=== PATIENT | male | born 1970 | race Caucasian/White ===

== ENCOUNTER 2016-06-08 22:59 | Emergency (ER) | payer MEDICAID, OTHER ==
[2016-06-08 23:10] VITALS: TEMP 98
[2016-06-09] MEDS ORDERED: KETOROLAC 30 MG/ML 1 ML VIAL IM STA (00:02)
--- NOTE | 2016-06-09 00:32 | ED ---
General Adult HPI <Gabe Reynoso - Last Filed: 06/09/16 03:56> - General Source: patient, family, EMS, RN notes reviewed, old records reviewed Mode of arrival: EMS Limitations: no limitations <Sukhjinder Powers - Last Filed: 06/10/16 11:13> - General Chief complaint: Fall Stated complaint: Fall - History of Present Illness Initial comments: Chief complaint history of present illness is a 45-year-old male who reports that he fell down 8 steps at home. Unwitnessed. No apparent loss of consciousness is others were there immediately. Patient was brought emergency room by EMS on a backboard with Merigold collar in place. (Sukhjinder Powers) - Related Data Previous Rx's Medication Instructions Recorded Nicotine 21Mg/24Hr Patch [Habitrol] 1 patch TRANSDERM DAILY #30 patch 11/24/15 Sertraline [Zoloft] 50 mg PO DAILY #30 tab 11/24/15 Ziprasidone [Geodon] 40 mg PO BID #60 cap 11/24/15 Hydrocodone/Acetaminophen [Duncan 1 each PO Q4HR PRN #15 tab 06/09/16 5-325] Allergies Allergy/AdvReac Type Severity Reaction Status Date / Time No Known Allergies Allergy Verified 06/08/16 23:10 Review of Systems ROS Other: All systems not noted in ROS Statement are negative. <Gabe Reynoso - Last Filed: 06/09/16 03:56> ROS Other: All systems not noted in ROS Statement are negative. <Sukhjinder Powers - Last Filed: 06/10/16 11:13> ROS Statement: Those systems with pertinent positive or pertinent negative responses have been documented in the HPI. Review of systems. The patient complains of headache or neck pain. Right shoulder pain, left knee pain. All systems are reviewed. Past medical problems significant for asthma, osteoarthritis, bipolar disorder. Surgeries hernia repair, back injections for chronic pain. Respiratory no known ALLERGIES. Patient encouraged not to smoke he does drink alcohol and drank alcohol this evening. (Sukhjinder Powers) Past Medical History Past Medical History: Asthma, Osteoarthritis (OA) Additional Past Medical History / Comment(s): Other HX: bronchitis, chronic back pain with pain injections and nerve "deadening", diverticulitis History of Any Multi-Drug Resistant Organisms: MRSA Date of last positivie culture/infection: 10/20/07 MDRO Source:: L leg Past Surgical History: No Surgical Hx Reported, Hernia Repair Additional Past Surgical History / Comment(s): Back pain injections and lumbar spine nerve ablation( nerve "deadening"), colonoscopy, L groin hernia repair as a child, L knee debridement of Mrsa infection around 2008. Past Anesthesia/Blood Transfusion Reactions: No Reported Reaction Additional Past Anesthesia/Blood Transfusion Reaction / Comment(s): Never has recieved blood. Past Psychological History: Anxiety, Bipolar, Depression Additional Psychological History / Comment(s): Pt's medical record from physicians office state episodic mood disorder. Pt lives at home with his . He is independent. He works and drives a car. Smoking Status: Current every day smoker Past Alcohol Use History: Daily Past Drug Use History: None Reported - Past Family History Father Family Medical History: COPD Additional Family Medical History / Comment(s): Father at age 49yrs of lung dx. Father was a smoker. Mother Family Medical History: Coronary Artery Disease (CAD), Diabetes Mellitus Additional Family Medical History / Comment(s): Mother at age 63 yrs. <Sukhjinder Powers - Last Filed: 06/10/16 11:13> General Exam <Gabe Reynoso - Last Filed: 06/09/16 03:56> Limitations: no limitations <Sukhjinder Powers - Last Filed: 06/10/16 11:13> - General Exam Comments Initial Comments: General: The patient is awake and alert, complaining of head neck, right shoulder left knee pain. Vital signs show temperature 98.0 pulse 75 respiratory rate 18 pulse ox 95% room air blood pressure 136/85. Mildly elevated systolic diastolic noted secondary to pain. Eye: Pupils are equal, round and reactive to light, extra-ocular movements are intact ; there is normal conjunctiva bilaterally. No signs of icterus. Ears, nose, mouth and throat: There are moist mucous membranes and no oral lesions. Patient states he did not chip his teeth. Neck: Patient's on a backboard with a Merigold collar was complaint neck pain. No complaint of numbness or tingling down his arms. Cardiovascular: There is a regular rate and rhythm. No murmur, rub or gallop is appreciated. Respiratory: Lungs are clear to auscultation, respirations are non-labored, breath sounds are equal. No wheezes, stridor, rales, or rhonchi. Gastrointestinal: Soft, non-distended, non-tender abdomen without masses or organomegaly noted. There is no rebound or guarding present. No CVA tenderness. Bowel sounds are unremarkable. Back: History of chronic back pain, has had injections in the past. Musculoskeletal: Complains pain to the right shoulder decreased range of motion. Neurovascular status to the hands intact. Complains of left knee pain he is able to flex mildly. Neurovascular status feet are intact. Neurological: CN II-XII intact, There are no obvious motor or sensory deficits. Coordination appears grossly intact. Speech is normal. No focal or lateralizing findings. Skin: Skin is warm and dry and no rashes or lesions are noted. Psychiatric: History of bipolar shoulder but no complaints of depression at this time. (Sukhjinder Powers) Medical Decision Making - Radiology Data Radiology results: report reviewed (Computed tomography scan of the brain shows no acute abnormality. Computed tomography scan of the cervical spine shows no acute process.), image reviewed (X-ray of the right shoulder, chest x-ray, knee , lumbar spine and pelvis show no acute process.) <Gabe Reynoso - Last Filed: 06/09/16 03:56> <Sukhjinder Powers - Last Filed: 06/10/16 11:13> - Medical Decision Making Patient reevaluated and resting comfortably in bed. Patient is symptom-free. Patient is clinically not intoxicated and does not feel he is intoxicated. Patient states he only had a couple of beers earlier and does not feel intoxicated when he arrived either. Patient and family updated on results and plan. (Gabe Reynoso) Patient is currently in CAT scan. Final disposition will be determined by Dr. Reynoso (Sukhjinder Powers) Disposition <Gabe Reynoso - Last Filed: 06/09/16 03:56> Time of Disposition: 11:13 <Sukhjinder Powers - Last Filed: 06/10/16 11:13> Clinical Impression: Fall, Multiple contusions Disposition: HOME SELF-CARE Condition: Stable Instructions: Head Injury (ED), Contusion in Adults (ED) Additional Instructions: Please follow-up with primary care physician in the next day or 2 for recheck. Return for change in mental status, weakness, difficulty breathing, worsening symptoms or other concerns. Prescriptions: Hydrocodone/Acetaminophen [Duncan 5-325] 1 each PO Q4HR PRN #15 tab PRN Reason: Pain Referrals: Asher Perkins III, MD [Primary Care Provider] - 1-2 days
--- NOTE | 2016-06-09 01:25 | CT ---
EXAM: CT Head Without Intravenous Contrast. CLINICAL HISTORY: Reason: Patient fell downstairs TECHNIQUE: Axial computed tomography images of the head/brain without intravenous contrast. CTDI is 57.40 mGy and DLP is 1184.90 mGy-cm COMPARISON: No relevant prior studies available. FINDINGS: Brain: Unremarkable. No acute hemorrhage. Normal thompson-white differentiation. No significant mass effect. Ventricles: Unremarkable. No ventriculomegaly. Bones/joints: Unremarkable. No acute fracture. Soft tissues: Unremarkable. Sinuses: Unremarkable as visualized. No acute sinusitis. Mastoid air cells: Unremarkable. IMPRESSION: No acute intracranial abnormality. EXAM: CT Cervical Spine Without Intravenous Contrast. CLINICAL HISTORY: Reason: Patient fell downstairs TECHNIQUE: Axial computed tomography images of the cervical spine without intravenous contrast. CTDI is 57.40 mGy and DLP is 1184.90 mGy-cm COMPARISON: No relevant prior studies available. FINDINGS: Vertebrae: Unremarkable. No acute fracture. Discs/spinal canal/neural foramina: No acute findings. No spinal canal stenosis. Soft tissues: Unremarkable. Lung apices: Unremarkable as visualized. IMPRESSION: No acute findings.
[2016-06-09] MEDS ORDERED: HYDROmorphone 1 MG/ML 1 ML SYRINGE IM STA (02:09)
--- NOTE | 2016-06-09 03:20 | XR ---
ADDENDUM - Added by Rosemary Rowland MD on 06/10/2016 10:03 PM (-07:00) EXAM: XR Chest, 2 Views. CLINICAL HISTORY: Reason: Pain TECHNIQUE: Frontal and lateral views of the chest. COMPARISON: 10/09/2014 FINDINGS: Lungs: Unremarkable. No consolidation. Pleural space: Unremarkable. No pneumothorax. Heart: Unremarkable. No cardiomegaly. Mediastinum: Unremarkable. Bones/joints: No acute osseous abnormality. IMPRESSION: No acute cardiopulmonary process. ADDENDUM - Added by Rosemary Rowland MD on 06/09/2016 3:20 AM (-07:00) EXAM: XR Right Shoulder Complete, 2 or More Views. CLINICAL HISTORY: Reason: Pain TECHNIQUE: Two or more views of the right shoulder. COMPARISON: No relevant prior studies available. FINDINGS: Bones/joints: No acute fracture or malalignment. Soft tissues: Unremarkable. IMPRESSION: No acute fracture or dislocation.
--- NOTE | 2016-06-09 03:22 | XR ---
ADDENDUM - Added by Rosemary Rowland MD on 06/10/2016 10:04 PM (-07:00) EXAM: XR Right Shoulder Complete, 2 or More Views. CLINICAL HISTORY: Reason: Pain TECHNIQUE: Two or more views of the right shoulder. COMPARISON: No relevant prior studies available. FINDINGS: Bones/joints: No acute fracture or malalignment. Soft tissues: Unremarkable. IMPRESSION: No acute fracture or dislocation. EXAM: XR Chest, 2 Views. CLINICAL HISTORY: Reason: Pain TECHNIQUE: Frontal and lateral views of the chest. COMPARISON: 10/09/2014 FINDINGS: Lungs: Unremarkable. No consolidation. Pleural space: Unremarkable. No pneumothorax. Heart: Unremarkable. No cardiomegaly. Mediastinum: Unremarkable. Bones/joints: No acute osseous abnormality. IMPRESSION: No acute cardiopulmonary process.
--- NOTE | 2016-06-09 03:40 | XR ---
EXAM: XR Left Knee, 3 views. CLINICAL HISTORY: Reason: Pain TECHNIQUE: Three views of the left knee. COMPARISON: No relevant prior studies available. FINDINGS: Bones/joints: No acute fracture or malalignment. Small quadriceps enthesophyte. Small knee effusion. Soft tissues: Unremarkable. IMPRESSION: Small knee effusion. No acute osseous abnormality.
--- NOTE | 2016-06-09 03:41 | XR ---
EXAM: XR Pelvis, 1 or 2 Views. CLINICAL HISTORY: Reason: Pain TECHNIQUE: Frontal view of the pelvis. COMPARISON: No relevant prior studies available. FINDINGS: Bones/joints: No acute fracture or dislocation. Soft tissues: Unremarkable. IMPRESSION: No acute fracture or dislocation.
--- NOTE | 2016-06-09 03:47 | XR ---
EXAM: XR Lumbar Spine, 2 or 3 Views. CLINICAL HISTORY: Reason: Pain TECHNIQUE: Frontal and lateral views of the lumbar spine. COMPARISON: MRI lumbar spine 07/22/2014 FINDINGS: Vertebrae: No acute fracture or malalignment. Disc spaces: Mild multilevel degenerative changes of the spine. Soft tissues: Unremarkable. IMPRESSION: Mild multilevel degenerative changes of the spine.
[2016-06-09 04:05] VITALS: BP 124/80; PULSE 62; RESP 16
== END 2016-06-09 04:07 | disposition home or self-care (01) ==
LOC: EC 22:59
DX: S00.93XA Contusion of unspecified part of head, initial encounter (principal); M25.562 Pain in left knee; M54.2 Cervicalgia; G89.29 Other chronic pain; F17.200 Nicotine dependence, unspecified, uncomplicated; W10.9XXA Fall (on) (from) unspecified stairs and steps, initial encounter; Y92.009 Unspecified place in unspecified non-institutional (private) residence as the place of occurrence of the external cause
CPT/HCPCS: 71020; 72100; 72170; 73030; 73562; 72125; 70450; 99285; 96372 ×2; J1885; J1170

== ENCOUNTER 2017-07-05 08:24 | Observation (INO) | payer OTHER ==
[2017-07-05] MEDS ORDERED: SODIUM CHLORIDE 0.9% 1,000 ML IV STA ×2 (08:49)
[2017-07-05] MEDS ORDERED: IPRATROPIUM-ALBUTEROL 3 ML NEB INHALATION STA ×2 (08:49→10:24)
[2017-07-05] MEDS ORDERED: methylPREDNISolone SOD SUCCI 125 MG/2 ML VIAL IV STA (08:50)
--- NOTE | 2017-07-05 08:53 | ED ---
Chest Pain HPI - General Chief Complaint: Chest Pain Stated Complaint: chest pain Time Seen by Provider: 07/05/17 08:34 Source: patient, RN notes reviewed, old records reviewed Mode of arrival: ambulatory Limitations: no limitations - History of Present Illness Initial Comments: 46-year-old male presents emergency Department chief complaint of chest pain and feeling like heaviness on his chest. He reports for the past 2 weeks has had a significant cough and wheezing. He states that when he lays back it is difficult time breathing. Patient relates that he smokes approximately 6 cigarettes a day. He reports that he was admitted recently for cardiac workup. Patient relates that he has no history of high blood pressure. He reports family history of heart disease and lung disease. He states that he is had chills. - Related Data Home Medications Medication Instructions Recorded Confirmed Loratadine [Claritin] 10 mg PO DAILY 07/05/17 07/05/17 guaiFENesin-Coden 100-10MG/5ML 10 ml PO Q4HR PRN 07/05/17 07/05/17 [Robitussin AC] Allergies Allergy/AdvReac Type Severity Reaction Status Date / Time No Known Allergies Allergy Verified 07/05/17 08:45 Review of Systems ROS Statement: Those systems with pertinent positive or pertinent negative responses have been documented in the HPI. ROS Other: All systems not noted in ROS Statement are negative. EKG Findings - EKG Comments: EKG Findings:: EKG shows sinus rhythm and normal EKG noted. Ventricular rate of 90 bpm. FL interval 124 ms. QRS duration 80 ms. QT QTc is 334/426 most seconds. No evidence of ST elevation or T-wave inversion. Notes of atrial or ventricular arrhythmias. Past Medical History Past Medical History: Asthma, Hyperlipidemia, Osteoarthritis (OA) Additional Past Medical History / Comment(s): Other HX: bronchitis, chronic back pain with pain injections and nerve "deadening", diverticulitis History of Any Multi-Drug Resistant Organisms: MRSA Date of last positivie culture/infection: 10/20/07 MDRO Source:: L leg Past Surgical History: No Surgical Hx Reported, Hernia Repair Additional Past Surgical History / Comment(s): Back pain injections and lumbar spine nerve ablation( nerve "deadening"), colonoscopy, L groin hernia repair as a child, L knee debridement of Mrsa infection around 2008. Past Anesthesia/Blood Transfusion Reactions: No Reported Reaction Additional Past Anesthesia/Blood Transfusion Reaction / Comment(s): Never has recieved blood. Past Psychological History: Anxiety, Bipolar, Depression Smoking Status: Current every day smoker Past Alcohol Use History: None Reported Past Drug Use History: None Reported - Past Family History Father Family Medical History: COPD Additional Family Medical History / Comment(s): Father at age 49yrs of lung dx. Father was a smoker. Mother Family Medical History: Coronary Artery Disease (CAD), Diabetes Mellitus Additional Family Medical History / Comment(s): Mother at age 63 yrs. General Exam - General Exam Comments Initial Comments: 46-year-old male. No distress. Limitations: no limitations General appearance: alert, in no apparent distress Head exam: Present: atraumatic, normocephalic, normal inspection Eye exam: Present: normal appearance, PERRL, EOMI. Absent: scleral icterus, conjunctival injection, periorbital swelling ENT exam: Present: normal exam, mucous membranes moist Neck exam: Present: normal inspection. Absent: tenderness, meningismus, lymphadenopathy Respiratory exam: Present: wheezes, rhonchi. Absent: normal lung sounds bilaterally, respiratory distress, rales, stridor Cardiovascular Exam: Present: regular rate, normal rhythm, normal heart sounds. Absent: systolic murmur, diastolic murmur, rubs, gallop, clicks GI/Abdominal exam: Present: soft, normal bowel sounds. Absent: distended, tenderness, guarding, rebound, rigid Extremities exam: Present: normal inspection, full ROM, normal capillary refill. Absent: tenderness, pedal edema, joint swelling, calf tenderness Back exam: Present: normal inspection Neurological exam: Present: alert, oriented X3, CN II-XII intact Psychiatric exam: Present: normal affect, normal mood Skin exam: Present: warm, dry, intact, normal color. Absent: rash Course Vital Signs 07/05/17 07/05/17 07/05/17 08:27 09:09 09:30 Temperature 98 F Pulse Rate 107 H 100 Respiratory 20 16 16 Rate Blood Pressure 116/74 144/82 O2 Sat by Pulse 97 96 Oximetry 07/05/17 07/05/17 07/05/17 09:52 10:00 10:46 Temperature Pulse Rate 76 80 85 Respiratory Rate Blood Pressure O2 Sat by Pulse Oximetry 07/05/17 07/05/17 07/05/17 10:56 11:00 11:16 Temperature 97.1 F L Pulse Rate 86 90 86 Respiratory 18 16 Rate Blood Pressure 129/68 129/68 O2 Sat by Pulse 93 L 94 L Oximetry - Reevaluation(s) Reevaluation #1: 07/05/17 11:53 Was reevaluated and continued to wheeze. He did receive a second breathing treatment. Chest Pain MDM - [facility] 46-year-old male with history of cough and wheezing for 2 weeks presents emergency department today with increased chest pain. EKG at this time shows no acute abnormality's. Negative troponin. Chest x-ray was performed and shows no significant abnormalities as well. Patient continued to have wheezing despite 2 breathing treatments and IV steroids. Also oxygen saturation at 94%. Patient continues to complain of heaviness on his chest. At this time are not sure if this related to cardiac origin but we will repeat troponins. Patient will be admitted at this time under Dr. Lopez for continued steroid treatments and breathing treatments. Disposition Clinical Impression: COPD exacerbation, Chest pain Disposition: ADMITTED IP TO THIS HOSP Condition: Good Instructions: Chest Pain (ED) Referrals: None,Stated [Primary Care Provider] - 1-2 days Ann Roberts MD [STAFF PHYSICIAN] - 1-2 days Time of Disposition: 11:55
[2017-07-05 09:20] LABS: Basophils % (A) 0 %; Eosinophils # (A) 0.4 k/uL (0-0.7); Eosinophils % (A) 3 %; HCT 43.2 % (39.0-53.0); HGB 15.5 gm/dL (13.0-17.5); Lymphocytes % (A) 27 %; MCHC 35.9 g/dL (31.0-37.0); MCV 89.1 fL (80.0-100.0); Mean Platelet Volume 7.9; Monocytes # (A) 0.8 k/uL (0-1.0); Monocytes % (A) 7 %; Neutrophils # (A) 6.7 k/uL (1.3-7.7); Neutrophils % (A) 61 %; Platelet Count 340 k/uL (150-450); RBC 4.84 m/uL (4.30-5.90); RDW 12.5 % (11.5-15.5); WBC 10.9 k/uL (3.8-10.6)
[2017-07-05 09:33] LABS: ALT 34 U/L (21-72); AST 23 U/L (17-59); Albumin 4.3 g/dL (3.5-5.0); Alkaline Phosphatase 82 U/L (38-126); Amylase 48 U/L (30-110); Anion Gap 14 mmol/L; Blood Urea Nitrogen 20 mg/dL (9-20); Calcium 9.7 mg/dL (8.4-10.2); Carbon Dioxide 26 mmol/L (22-30); Chloride 104 mmol/L (98-107); Glucose 106 mg/dL (74-99); Lipase 102 U/L (23-300); Potassium 4.1 mmol/L (3.5-5.1); Sodium 144 mmol/L (137-145); Total Bilirubin 0.2 mg/dL (0.2-1.3)
[2017-07-05 09:36] LABS: D-Dimer <0.17 mg/L FEU (<0.60); Partial Thromboplastin Time 24.7 sec (22.0-30.0); Prothrombin Time 9.9 sec (9.0-12.0)
--- NOTE | 2017-07-05 09:39 | XR ---
EXAMINATION TYPE: XR chest 2V DATE OF EXAM: 07/05/2017 COMPARISON: Chest x-ray March 09, 2017. HISTORY: Chest pressure and pain today. TECHNIQUE: Frontal and lateral views of the chest are obtained. FINDINGS: Low lung volumes are redemonstrated. There is no focal air space opacity, pleural effusion, or pneumothorax seen. The cardiac silhouette size is stable and upper limits of normal. Overlying E KG wires are present. The osseous structures are intact. IMPRESSION: No acute cardiopulmonary process. No significant change from prior.
[2017-07-05 09:46] LABS: Creatine Kinase 136 U/L (55-170)
[2017-07-05 09:58] LABS: Creatine Kinase MB 0.6 ng/mL (0.0-2.4); Troponin I <0.012 ng/mL (0.000-0.034)
[2017-07-05] MEDS: methylPREDNISolone SOD SUCCI 125 MG/2 ML VIAL IV SCH ×2 (12:10→18:18)
[2017-07-05] MEDS: INSULIN ASPART 100 UNIT/ML 1 ML 10 ML VIAL SQ SCH ×3 (12:52→21:11)
[2017-07-05] MEDS ORDERED: LEVOFLOXACIN 500 MG TAB PO SCH (13:00)
[2017-07-05] MEDS ORDERED: NALOXONE 0.4 MG/ML 1 ML VIAL IV PRN (13:13)
[2017-07-05 17:57] LABS: Glucose,Whole Blood 219 mg/dL (75-99)
[2017-07-05] MEDS ORDERED: MAG HYDROX/AL HYDROX/SIMETH 30 ML CUP PO PRN (17:57)
[2017-07-05] MEDS ORDERED: NITROGLYCERIN SL TABS 0.4 MG TAB SUBLINGUAL PRN (18:10)
[2017-07-05] MEDS: ASPIRIN 325 MG TAB PO SCH (18:18)
[2017-07-05] MEDS: LORazepam 0.5 MG TAB PO PRN (18:19)
--- NOTE | 2017-07-05 18:20 | P.HPIM ---
History of Present Illness H&P Date: 07/05/17 Chief Complaint: Chest pressure and congestion 46-year-old male with history of hypertension, paroxysmal A. fib, and asthma, and hyperlipidemia. Patient presented to the ER with complaints of chest pressure going on for at least 1-2 weeks. Patient reports that recently in February he was in the hospital for cardiac workup due to chest pain, I did thorough chart review and found that he had a stress test done which was negative and cardiology cleared the patient at that time for discharge as the pain was deemed to be noncardiac. However he was also diagnosed with paroxysmal A. fib at that time when he had SVT. This time patient is reporting chest pain centrally location radiating to the left side of the neck 8 out of 10 in severity feels like pressure preventing him from taking deep breaths not related to activity or rest denies any pleuritic chest pain features, associated with some dizziness and nausea at times with cold sweats and palpitations. He works as a rolloff truck driver. And he is concerned regarding his heart. He also reports strong history of GERD requiring banding in the past, however he is currently not taking any medications for that. He also reports history of asthma, he feels congested in the nose and sinuses denies any sore throat but reports some muscle aches in his legs. He reports productive cough of whitish sputum sometimes comes and long attacks and soap with vomiting of stomach acid. He reports fevers at home 101 F. denies any hemoptysis , he reports multiple sick contacts, not aware of any of his sick contacts got the flu. Patient also reports history of anxiety requiring Ativan in the past which was prescribed by his PCP. However he lost insurance and lost follow-up with his PCP and since then he has not been taking any prescription medications. Review of Systems Constitutional: Patient denies night sweating, denies significant weight changes Eyes: Patient denies visual changes, denies eye pain ENT: Patient denies ear pain, denies sore throat Cardiovascular: Patient denies exertional dyspnea, denies peripheral leg edema, denies orthopnea, denies paroxysmal nocturnal dyspnea Respiratory:Patient patient reports shortness of breath and wheezing at home and coughing as mentioned in HPI Gastrointestinal: Patient denies diarrhea, denies constipation, denies nausea , denies vomiting, denies abdominal pain Genitourinary: Patient denies dysuria, denies hematuria, denies changes in urinary habits, denies genital lesions Musculoskeletal: Patient reports diffuse muscle aches mainly lower extremities Psychiatric: Patient denies changes in mood or memory, denies suicidal ideation, admits to anxiety Endocrine: Patient denies heat intolerance, denies cold intolerance, denies excessive thirst, denies polyuria Neurological: Patient denies focal neurologic deficits, denies weakness, denies numbness, denies tingling Hem/Lymphatic: Patient denies bleeding tendency, denies bruising, denies swollen lymph glands Allergic/Immun: Patient denies recent allergic reactions Skin: Patient denies rashes, denies pruritis, denies ulcers Past Medical History Past Medical History: Atrial Fibrillation, Asthma, GI Bleed, Hyperlipidemia, Osteoarthritis (OA) Additional Past Medical History / Comment(s): Afib with RVR, bronchitis, arthritis multiple joints, back pain better with injections/ablation, lower GI bleed/diverticulitis. History of Any Multi-Drug Resistant Organisms: MRSA Date of last positivie culture/infection: 10/20/07 MDRO Source:: L leg Past Surgical History: No Surgical Hx Reported, Hernia Repair, Orthopedic Surgery Additional Past Surgical History / Comment(s): Back pain injections and lumbar spine nerve ablatio, colonoscopy, Hieu fundoplasty, L inguinal hernia repair as a child, L knee debridement of Mrsa infection around 2007. Past Anesthesia/Blood Transfusion Reactions: No Reported Reaction Additional Past Anesthesia/Blood Transfusion Reaction / Comment(s): Never has recieved blood. Smoking Status: Current every day smoker - Past Family History Father Family Medical History: COPD, Coronary Artery Disease (CAD) Additional Family Medical History / Comment(s): Father at age 49yrs of lung dx. Father was a smoker. Mother Family Medical History: Coronary Artery Disease (CAD), Diabetes Mellitus Additional Family Medical History / Comment(s): Mother at age 63 yrs. Medications and Allergies Home Medications Medication Instructions Recorded Confirmed Type Loratadine [Claritin] 10 mg PO DAILY 07/05/17 07/05/17 History guaiFENesin-Coden 100-10MG/5ML 10 ml PO Q4HR PRN 07/05/17 07/05/17 History [Robitussin AC] Allergies Allergy/AdvReac Type Severity Reaction Status Date / Time No Known Allergies Allergy Verified 07/05/17 08:45 Physical Exam Vitals: Vital Signs Temp Pulse Pulse Resp BP BP Pulse Ox 07/05/17 16:59 97.7 F 67 16 131/74 96 07/05/17 16:41 98.1 F 88 18 124/75 98 07/05/17 15:11 95 18 134/74 98 07/05/17 13:14 90 18 135/84 95 07/05/17 11:16 86 16 129/68 94 L 07/05/17 11:00 97.1 F L 90 18 129/68 93 L 07/05/17 10:56 86 07/05/17 10:46 85 07/05/17 10:00 80 07/05/17 09:52 76 07/05/17 09:30 100 16 144/82 96 07/05/17 09:09 16 07/05/17 08:27 98 F 107 H 20 116/74 97 Intake and Output 07/05/17 07/05/17 07/05/17 06:59 14:59 22:59 Other: Weight 92.986 kg 94.2 kg Constitutional: No acute distress, conversant, pleasant Eyes: Anicteric sclerae, moist conjunctiva, no lid-lag Pupils equal round reactive to light ENMT: NC/AT, tenderness to palpation of the maxillary and frontal sinuses Oropharynx clear, no erythema, exudates Neck: Supple, FROM, no masses, or JVD No carotid bruits No thyromegaly Lungs: Good breath sounds bilaterally, and expiratory wheezes diffuse Normal respiratory effort, no accessory muscle use Cardiovascular: Heart tachycardic but regular in rate and rhythm, No murmurs, gallops, or rubs No peripheral edema Abdominal: Soft Nontender, no guarding, rebound or rigidity Abdomen moving with respiration Normoactive bowel sounds No hepatomegaly, No splenomegaly No palpable mass No abdominal wall hernia noted Skin: Normal temperature, tone, texture, turgor No induration No subcutaneous nodules No rash, lesions No ulcers Extremities: No digital cyanosis No clubbing Pedal pulses intact and symmetrical Radial pulses intact and symmetrical No calf tenderness Psychiatric: Alert and oriented to person, place and time Appropriate affect fair judgment Neuro Muscles Strength 5/5 in all 4 extremities Sensation to light touch grossly present throughout Cranial nerves II-XII grossly intact No focal sensory deficits Lymphatics: no palpable cervical or supraclavicular , or inguinal lymph nodes Results CBC & Chem 7: 07/05/17 09:03 07/05/17 09:03 Labs: Abnormal Lab Results - Last 24 Hours (Table) 07/05/17 07/05/17 07/05/17 Range/Units 09:03 09:03 17:48 WBC 10.9 H (3.8-10.6) k/uL Glucose 106 H (74-99) mg/dL POC Glucose (mg/dL) 219 H (75-99) mg/dL Thrombosis Risk Factor Assmnt - Choose All That Apply Any of the Below Risk Factors Present?: Yes Each Factor Represents 1 point: Abnormal pulmonary function (COPD), Age 41-60 years, Obesity (BMI >25) Other Risk Factors: No Other congenital or acquired thrombophilia - If yes, enter type in comment: No Thrombosis Risk Factor Assessment Total Risk Factor Score: 3 Thrombosis Risk Factor Assessment Level: Moderate Risk Assessment and Plan Assessment: 46-year-old male with history of hypertension, hypercholesterolemia, and asthma. Presented to the hospital due to central chest pain felt like pressure with atypical features going on for over a week now. Along with feeling congested in his sinuses and chest associated with coughing wheezing and shortness of breath. Patient admitted for further management of asthma accessory patient, along with workup to rule out ACS Plan: #Acute asthma exacerbation, secondary to acute bronchitis due to upper respiratory infection Patient started on systemic steroids, DuoNeb's when necessary as needed, inhaled LABA/ICS Loratadine Patient counseled to avoid smoking and smoke exposure Doxycycline twice a day Discontinue Levaquin Rule out flu, swab for flu A/B PCR #Chest pain with atypical features rule out ACS #Paroxysmal A. fib, currently in sinus rhythm Patient had extensive workup back in February 2017, stress test was negative Continue with cardiac monitoring Cardiology consultative Start aspirin Start statin Check TSH Sublingual nitro when necessary #Hyperglycemia without diagnosis of diabetes mellitus Check A1c Continue with insulin sliding scale per protocol I anticipate hyperglycemia especially now patient on systemic steroids #Smoking Patient counseled to quit smoking and smoke exposure #GERD This could be also contributing into his chest pain When necessary Maalox Twice a day Protonix #Anxiety This also be contributing into panic attacks and some of the symptoms he is describing Ativan 0.5 mg 4 times a day when necessary by mouth #History of hypercholesterolemia Atorvastatin Liver enzymes are unremarkable this time #DVT prophylaxis on heparin subcu 3 times a day Preformed a thorough record review from recent hospitalization as summarized in HPI, in February 2017 patient was diagnosed with paroxysmal A. fib, stress test was negative for reversible ischemia. Cardiology cleared the patient at that time Surrogate decision-maker: Patient's CODE STATUS: Full code DVT prophylaxis: Heparin subcu 3 times a day Discussed with: Patient, ER, RN Anticipated discharge: [address]: Home A total of 50 minutes was spent on the care of this complex patient more than 50 % of the time was spent in counseling and care coordination.
[2017-07-05] MEDS: BENZONATATE 100 MG CAP PO SCH ×2 (18:29→21:05)
[2017-07-05] MEDS: ACETAMINOPHEN TAB 325 MG TAB PO PRN (18:38)
[2017-07-05 21:00] LABS: Glucose,Whole Blood 238 mg/dL (75-99)
[2017-07-05] MEDS ORDERED: ATORVASTATIN 20 MG TAB PO SCH (21:00)
[2017-07-05] MEDS: PANTOPRAZOLE 40 MG TABLET PO SCH (21:05)
[2017-07-05] MEDS: LORATADINE 10 MG TAB PO SCH (21:05)
[2017-07-05] MEDS: IPRATROPIUM-ALBUTEROL 3 ML NEB INHALATION PRN (21:36)
[2017-07-05] MEDS: BUDESONIDE 0.5 MG/2 ML NEBU INHALATION SCH (21:36)
[2017-07-06] MEDS: LORazepam 0.5 MG TAB PO PRN ×2 (00:02→08:13)
[2017-07-06] MEDS: methylPREDNISolone SOD SUCCI 125 MG/2 ML VIAL IV SCH ×2 (00:33→06:22)
[2017-07-06] MEDS: HEPARIN SODIUM,PORCINE 5,000 UNIT/ML 1 ML VIAL SQ SCH ×2 (00:33→10:42)
[2017-07-06 02:03] LABS: Hemoglobin A1C 5.1 % (4.0-6.0)
[2017-07-06 06:41] LABS: Basophils % (A) 0 %; Eosinophils % (A) 0 %; HCT 37.7 % (39.0-53.0); HGB 13.7 gm/dL (13.0-17.5); Lymphocytes # (A) 1.1 k/uL (1.0-4.8); Lymphocytes % (A) 7 %; MCH 32.6 pg (25.0-35.0); MCHC 36.4 g/dL (31.0-37.0); MCV 89.6 fL (80.0-100.0); Mean Platelet Volume 7.4; Monocytes # (A) 0.3 k/uL (0-1.0); Monocytes % (A) 2 %; Neutrophils # (A) 13.6 k/uL (1.3-7.7); Neutrophils % (A) 91 %; Platelet Count 296 k/uL (150-450); RBC 4.21 m/uL (4.30-5.90); RDW 12.7 % (11.5-15.5)
[2017-07-06 07:00] LABS: Glucose,Whole Blood 172 mg/dL (75-99)
[2017-07-06 07:05] LABS: ALT 25 U/L (21-72); AST 16 U/L (17-59); Albumin 3.8 g/dL (3.5-5.0); Alkaline Phosphatase 66 U/L (38-126); Anion Gap 14 mmol/L; Blood Urea Nitrogen 15 mg/dL (9-20); Calcium 9.5 mg/dL (8.4-10.2); Carbon Dioxide 22 mmol/L (22-30); Chloride 108 mmol/L (98-107); Glucose 158 mg/dL (74-99); Magnesium 2.1 mg/dL (1.6-2.3); Potassium 4.1 mmol/L (3.5-5.1); Sodium 144 mmol/L (137-145); Total Bilirubin 0.3 mg/dL (0.2-1.3); Total Protein 6.3 g/dL (6.3-8.2)
[2017-07-06 08:13] VITALS: RESP 18
[2017-07-06] MEDS: BENZONATATE 100 MG CAP PO SCH (08:13)
[2017-07-06] MEDS: LORATADINE 10 MG TAB PO SCH (08:14)
[2017-07-06] MEDS: PANTOPRAZOLE 40 MG TABLET PO SCH (08:15)
[2017-07-06] MEDS ORDERED: DOXYCYCLINE 50 MG CAP PO SCH (09:00)
[2017-07-06] MEDS: IPRATROPIUM-ALBUTEROL 3 ML NEB INHALATION PRN (09:16)
[2017-07-06] MEDS: BUDESONIDE 0.5 MG/2 ML NEBU INHALATION SCH (09:16)
[2017-07-06] MEDS: ACETAMINOPHEN TAB 325 MG TAB PO PRN (10:40)
[2017-07-06] MEDS: ASPIRIN 325 MG TAB PO SCH (10:41)
[2017-07-06] MEDS: INSULIN ASPART 100 UNIT/ML 1 ML 10 ML VIAL SQ SCH (10:42)
[2017-07-06 11:54] VITALS: BP 154/76; PULSE 105; TEMP 98
[2017-07-06 12:16] LABS: Glucose,Whole Blood 134 mg/dL (75-99)
--- NOTE | 2017-07-06 12:25 | P.DS ---
Providers Date of admission: 07/05/17 11:54 Expected date of discharge: 07/06/17 Attending physician: Rubia Noriega MD Consults: 07/05/17 17:59 Consult Physician Routine Consulting Provider: Stephen Hammonds Consult Reason/Comments: chest pain Do you want consulting provider notified?: Yes Primary care physician: Stated None Hospital Course: Final diagnoses at discharge Atypical chest pain secondary to GERD, pulmonary congestion from acute asthma exacerbation Acute asthma exacerbation GERD Hyperlipidemia Secondary diagnoses Paroxysmal A. fib Hypertension 46-year-old male with history of hypertension, hypercholesterolemia, and asthma. Presented to the hospital due to central chest pain felt like pressure with atypical features going on for over a week now. Along with feeling congested in his sinuses and chest associated with coughing wheezing and shortness of breath. Patient admitted for further management of asthma exacerbation , along with workup to rule out ACS. Cardiology evaluated the patient and reviewed his recent stress test which was negative for any ischemia. Cardiology recommended no further workup during this hospital course as the chest pain did not seem to be of cardiac origin. Patient showed improvement in chest pain after receiving Maalox and Protonix, is most likely due to his history of GERD, I did recommend to the patient to follow-up with GI as an outpatient to get in EGD. I also provided the patient with resources to follow up with PCP as he didn't have one. Patient was also started on atorvastatin due to hyperlipidemia. Patient blood sugar was running high during this hospital course however has A1c is 5.1 he is not diabetic however being on steroid resulted in hyperglycemia. for asthma patient received systemic steroids and bronchodilators. Patient was seen and examined on day of discharge, doing well no new complaints he reports symptoms of restless leg syndrome which improves with walking around. Blood work was reviewed, denies any chest pain or trouble breathing at this point is able to walk around independently with no shortness of breath. Tolerated by mouth intake. Constitutional: vital signs stable, Not in acute distress, pleasant, conversant Lungs: Clear to auscultation bilaterally, clear to percussion, normal respiratory effort Cardiovascular: Regular rate and rhythm, no murmurs, no gallops, no rubs, no peripheral edema Gastrointestinal: Soft, no tenderness to palpation, no palpable hepatosplenomegally, bowel sounds positive, no abdominal wall hernias Extremities: No digital cyanosis peripheral pulses palpable and equal over bilateral radial arteries and dorsalis pedis artery, no calf muscle tenderness Psych: Alert, oriented to place, person and time, appropriate affect, intact judgment Patient discharged in stable clinical condition. Follow-up with PCP, follow-up with GI Consider EGD as an outpatient Consider workup for restless leg syndrome including iron studies, however blood work did not suggest any anemia Prescriptions provided to the patient and was transferred electronically to his preferred pharmacy. This will include a 5 day course of by mouth prednisone. All patient questions were answered. Patient verbalized understanding of the above plan and verbalized agreement. Patient Condition at Discharge: Good Plan - Discharge Summary Discharge Rx Participant: No New Discharge Prescriptions: New Albuterol Inhaler [Ventolin Hfa Inhaler] 1 - 2 puff INHALATION Q6HR PRN #1 inhaler PRN Reason: Shortness Of Breath Atorvastatin [Lipitor] 40 mg PO HS #30 tablet Benzonatate [Tessalon Perles] 100 mg PO TID #10 cap Budesonide-Formot 160-4.5 Mcg [Symbicort 160-4.5 Mcg Inhaler] 2 puff INHALATION BID #1 inhaler Doxycycline [Vibramycin] 100 mg PO BID #9 cap Ipratropium-Albuterol Nebulize [Duoneb 0.5 mg-3 mg/3 ml Soln] 3 ml INHALATION RT-Q4H PRN #40 ampul.neb PRN Reason: Shortness Of Breath Or Wheezing Loratadine [Claritin] 10 mg PO DAILY #10 tab Mag Hydrox/Al Hydrox/Simeth [Maalox] 15 ml PO Q6HR PRN #10 cup PRN Reason: Indigestion Pantoprazole [Protonix] 40 mg PO BID #60 tablet.dr predniSONE 40 mg PO DAILY #10 tab Discontinued guaiFENesin-Coden 100-10MG/5ML [Robitussin AC] 10 ml PO Q4HR PRN PRN Reason: Cough Loratadine [Claritin] 10 mg PO DAILY Discharge Medication List Albuterol Inhaler [Ventolin Hfa Inhaler] 1 - 2 puff INHALATION Q6HR PRN #1 inhaler 07/06/17 [Rx] Atorvastatin [Lipitor] 40 mg PO HS #30 tablet 07/06/17 [Rx] Benzonatate [Tessalon Perles] 100 mg PO TID #10 cap 07/06/17 [Rx] Budesonide-Formot 160-4.5 Mcg [Symbicort 160-4.5 Mcg Inhaler] 2 puff INHALATION BID #1 inhaler 07/06/17 [Rx] Doxycycline [Vibramycin] 100 mg PO BID #9 cap 07/06/17 [Rx] Ipratropium-Albuterol Nebulize [Duoneb 0.5 mg-3 mg/3 ml Soln] 3 ml INHALATION RT -Q4H PRN #40 ampul.neb 07/06/17 [Rx] Loratadine [Claritin] 10 mg PO DAILY #10 tab 07/06/17 [Rx] Mag Hydrox/Al Hydrox/Simeth [Maalox] 15 ml PO Q6HR PRN #10 cup 07/06/17 [Rx] Pantoprazole [Protonix] 40 mg PO BID #60 tablet.dr 07/06/17 [Rx] predniSONE 40 mg PO DAILY #10 tab 07/06/17 [Rx] Follow up Appointment(s)/Referral(s): None,Stated [Primary Care Provider] - 1-2 days Elmo Gomes MD [STAFF PHYSICIAN] - 3 Days Daniel Huynh MD [STAFF PHYSICIAN] - 2 Weeks Patient Instructions/Handouts: Gastroesophageal Reflux Disease (DC), How to Use a Nebulizer (GEN), Bronchospasm (GEN) Activity/Diet/Wound Care/Special Instructions: activity and diet as tolerated Care Plan Goals (MU): Follow up with PCP in 3-5 days consider workup for Restless leg syndrome that includes serum ferritin, Iron , and TIBC consider following with Gastroenterology to have EGD performed Discharge Disposition: HOME SELF-CARE
--- NOTE | 2017-07-06 13:26 | P.CRDCN ---
History of Present Illness Consult date: 07/06/17 History of present illness: Mr. Moran is a pleasant 46-year-old male past medical history significant for paroxysmal atrial fibrillation, dyslipidemia, anxiety and chronic tobacco use. He denies history of coronary artery disease and has never seen a window display designer as an outpatient. We have been asked to see him in consultation for complaints of chest pain. He states yesterday morning while sitting on the couch he developed a tight pain in his chest in the mid-sternal region. The pain was intermittent at that time and felt as if he couldn't take a deep breath. He has also been coughing frequently over the last 2 days and having fevers. He denies symptoms of dizziness, palpitations, nausea, vomiting or diaphoresis with this pain. 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 The tightness in his chest has resolved with no specific alleviating factors. He has had no further symptoms since admission into the hospital and telemetry tracings have been unremarkable. He is continuously maintaining sinus mechanism. He was recently admitted into the hospital in February 2017, it was at that time he was having paroxysmal atrial fibrillation and he also underwent a stress echocardiogram which was negative for stress induced ischemia. Echocardiogram was also performed at that time and revealed preserved LV function with EF 55-60%. EKG on arrival reveals sinus mechanism with no acute ST or T-wave abnormalities. Chest xray is negative for an acute cardiopulmonary process. Laboratory data reviewed, WBC 15, hemoglobin 13.7, platelets 296, potassium 4.1 , creatinine 0.58, magnesium 2.1, cardiac enzymes negative 3, LDL 109, HDL 25, TSH 2.22. He takes no daily medications. Review of Systems At the time of my exam: CONSTITUTIONAL: Complains of fever/chills. EYES: Denies blurred vision. Denies vision changes. Denies eye pain. EARS, NOSE, MOUTH & THROAT: Denies headache. Denies sore throat. Denies ear pain. CARDIOVASCULAR: Denies chest pain. Denies shortness of breath. Denies orthopnea. Denies PND. Denies palpitations. RESPIRATORY: Complains of cough. GASTROINTESTINAL: Denies abdominal pain. Denies diarrhea. Denies constipation. Denies nausea. Denies vomiting. MUSCULOSKELETAL: Denies myalgias. INTEGUMENTARY: Denies pruitis. Denies rash. NEUROLOGIC: Denies numbness. Denies tingling. Denies weakness. PSYCHIATRIC: Denies anxiety. Denies depression. ENDOCRINE: Denies fatigue. Denies weight change. Denies polydipsia. Denies polyurina. GENITOURINARY: Denies burning, hematuria or urgency with micturation. HEMATOLOGIC: Denies history of anemia. Denies bleeding. Past Medical History Past Medical History: Atrial Fibrillation, Asthma, GI Bleed, Hyperlipidemia, Osteoarthritis (OA) Additional Past Medical History / Comment(s): Afib with RVR, bronchitis, arthritis multiple joints, back pain better with injections/ablation, lower GI bleed/diverticulitis. History of Any Multi-Drug Resistant Organisms: MRSA Date of last positivie culture/infection: 10/20/07 MDRO Source:: L leg Past Surgical History: No Surgical Hx Reported, Hernia Repair, Orthopedic Surgery Additional Past Surgical History / Comment(s): Back pain injections and lumbar spine nerve ablatio, colonoscopy, Hieu fundoplasty, L inguinal hernia repair as a child, L knee debridement of Mrsa infection around 2007. Past Anesthesia/Blood Transfusion Reactions: No Reported Reaction Additional Past Anesthesia/Blood Transfusion Reaction / Comment(s): Never has recieved blood. Smoking Status: Current every day smoker - Past Family History Father Family Medical History: COPD, Coronary Artery Disease (CAD) Additional Family Medical History / Comment(s): Father at age 49yrs of lung dx. Father was a smoker. Mother Family Medical History: Coronary Artery Disease (CAD), Diabetes Mellitus Additional Family Medical History / Comment(s): Mother at age 63 yrs. Medications and Allergies Home Medications Medication Instructions Recorded Confirmed Type Albuterol Inhaler [Ventolin Hfa 1 - 2 puff INHALATION Q6HR PRN #1 07/06/17 Rx Inhaler] inhaler Atorvastatin [Lipitor] 40 mg PO HS #30 tablet 07/06/17 Rx Benzonatate [Tessalon Perles] 100 mg PO TID #10 cap 07/06/17 Rx Budesonide-Formot 160-4.5 Mcg 2 puff INHALATION BID #1 inhaler 07/06/17 Rx [Symbicort 160-4.5 Mcg Inhaler] Doxycycline [Vibramycin] 100 mg PO BID #9 cap 07/06/17 Rx Ipratropium-Albuterol Nebulize 3 ml INHALATION RT-Q4H PRN #40 07/06/17 Rx [Duoneb 0.5 mg-3 mg/3 ml Soln] ampul.neb Loratadine [Claritin] 10 mg PO DAILY #10 tab 07/06/17 Rx Mag Hydrox/Al Hydrox/Simeth 15 ml PO Q6HR PRN #10 cup 07/06/17 Rx [Maalox] Pantoprazole [Protonix] 40 mg PO BID #60 tablet.dr 07/06/17 Rx predniSONE 40 mg PO DAILY #10 tab 07/06/17 Rx Allergies Allergy/AdvReac Type Severity Reaction Status Date / Time No Known Allergies Allergy Verified 07/05/17 08:45 Physical Exam Vitals: Vital Signs Temp Pulse Pulse Resp BP BP Pulse Ox 07/06/17 08:00 18 07/06/17 07:25 97.5 F L 82 18 136/76 98 07/06/17 04:00 97.9 F 88 16 140/68 94 L 07/06/17 03:19 87 16 07/05/17 23:39 97.6 F 81 16 116/67 95 07/05/17 23:22 90 16 07/05/17 21:49 84 07/05/17 21:39 84 07/05/17 20:00 97.5 F L 95 16 117/68 94 L 07/05/17 18:31 149/66 07/05/17 18:27 142/70 07/05/17 16:59 97.7 F 67 16 131/74 96 07/05/17 16:41 98.1 F 88 18 124/75 98 07/05/17 15:11 95 18 134/74 98 07/05/17 13:14 90 18 135/84 95 07/05/17 11:16 86 16 129/68 94 L 07/05/17 11:00 97.1 F L 90 18 129/68 93 L 07/05/17 10:56 86 07/05/17 10:46 85 07/05/17 10:00 80 07/05/17 09:52 76 07/05/17 09:30 100 16 144/82 96 07/05/17 09:09 16 Intake and Output 07/05/17 07/06/17 07/06/17 22:59 06:59 14:59 Intake Total 240 Balance 240 Intake: Oral 240 Other: Voiding Method Toilet # Voids 3 Weight 94.2 kg Blood pressure 136/76 heart rate 82 afebrile maintaining oxygen saturation on room air GENERAL: This is a 46-year-old male in no apparent distress at the time of my examination. HEENT: Head is atraumatic, normocephalic. Pupils are equal, round. Sclerae anicteric. Conjunctivae are clear. Mucous membranes of the mouth are moist. Neck is supple. There is no jugular venous distention. No carotid bruit is heard. LUNGS: Clear to auscultation no wheezes, rales or rhonchi. No chest wall tenderness is noted on palpation or with deep breathing. HEART: Regular rate and rhythm without murmurs, rubs or gallops. S1 and S2 heard. ABDOMEN: Soft, nontender. Bowel sounds are heard. No organomegaly noted. EXTREMITIES: No evidence of peripheral edema and no calf tenderness noted. VASCULAR: Radial and dorsalis pedis pulses palpated, no evidence of clubbing. NEUROLOGIC: Patient is awake, alert and oriented x3. Results 07/06/17 06:07 07/06/17 06:07 Cardiac Enzymes 07/05/17 07/05/17 07/05/17 Range/Units 09:03 09:03 15:17 AST 23 (17-59) U/L CK-MB (CK-2) 0.6 (0.0-2.4) ng/mL Troponin I <0.012 <0.012 (0.000-0.034) ng/mL 07/05/17 07/06/17 Range/Units 21:50 06:07 AST 16 L (17-59) U/L CK-MB (CK-2) (0.0-2.4) ng/mL Troponin I <0.012 (0.000-0.034) ng/mL Coagulation 07/05/17 Range/Units 09:03 PT 9.9 (9.0-12.0) sec APTT 24.7 (22.0-30.0) sec Lipids 07/05/17 Range/Units 09:03 Triglycerides 381 H (<150) mg/dL Cholesterol 210 H (<200) mg/dL HDL Cholesterol 25 L (40-60) mg/dL CBC 07/05/17 07/06/17 Range/Units 09:03 06:07 WBC 10.9 H 15.0 H (3.8-10.6) k/uL RBC 4.84 4.21 L (4.30-5.90) m/uL Hgb 15.5 13.7 (13.0-17.5) gm/dL Hct 43.2 37.7 L (39.0-53.0) % Plt Count 340 296 (150-450) k/uL Comprehensive Metabolic Panel 07/05/17 07/06/17 Range/Units 09:03 06:07 Sodium 144 144 (137-145) mmol/L Potassium 4.1 4.1 (3.5-5.1) mmol/L Chloride 104 108 H (98-107) mmol/L Carbon Dioxide 26 22 (22-30) mmol/L BUN 20 15 (9-20) mg/dL Creatinine 0.79 0.58 L (0.66-1.25) mg/dL Glucose 106 H 158 H (74-99) mg/dL Calcium 9.7 9.5 (8.4-10.2) mg/dL AST 23 16 L (17-59) U/L ALT 34 25 (21-72) U/L Alkaline Phosphatase 82 66 (38-126) U/L Total Protein 7.0 6.3 (6.3-8.2) g/dL Albumin 4.3 3.8 (3.5-5.0) g/dL Current Medications Generic Name Dose Route Start Last Admin Trade Name Freq PRN Reason Stop Dose Admin Acetaminophen 650 mg 07/05/17 18:33 07/05/17 18:38 Tylenol Tab PO 650 mg Q6HR PRN Administration Fever and/ or Pain Al Hydroxide/Mg Hydroxide 15 ml 07/05/17 17:57 07/05/17 18:36 Maalox PO 15 ml Q6HR PRN Administration Indigestion Albuterol/Ipratropium 3 ml 07/05/17 11:56 07/05/17 21:36 Duoneb 0.5 Mg-3 Mg/3 Ml Soln INHALATION 3 ml RT-Q4H PRN Administration Shortness Of Breath Or Wheezing Aspirin 325 mg 07/05/17 18:15 07/05/17 18:18 Aspirin PO 325 mg DAILY MARCOS Administration Atorvastatin Calcium 20 mg 07/05/17 21:00 07/05/17 21:05 Lipitor PO 20 mg HS MARCOS Administration Benzonatate 100 mg 07/05/17 16:00 07/06/17 08:13 Tessalon Perles PO 100 mg TID MARCOS Administration Budesonide 0.5 mg 07/05/17 20:00 07/05/17 21:36 Pulmicort INHALATION 0.5 mg RT-BID MARCOS Administration Doxycycline Monohydrate 100 mg 07/06/17 09:00 07/06/17 08:14 Vibramycin PO 07/10/17 21:01 100 mg BID MARCOS Administration Heparin Sodium (Porcine) 5,000 unit 07/06/17 00:00 07/06/17 00:33 Heparin SQ 5,000 unit Q8HR MARCOS Administration Insulin Aspart 0 unit 07/05/17 12:30 07/05/17 21:11 Novolog SQ 100 unit ACHS MARCOS Administration Protocol Loratadine 10 mg 07/05/17 18:15 07/06/17 08:14 Claritin PO 10 mg DAILY MARCOS Administration Lorazepam 0.5 mg 07/05/17 17:57 07/06/17 08:13 Ativan PO 0.5 mg Q6HR PRN Administration Anxiety Methylprednisolone Sodium Succinate 60 mg 07/05/17 12:00 07/06/17 06:22 Solu-Medrol IV 60 mg Q6HR MARCOS Administration Naloxone HCl 0.2 mg 07/05/17 13:13 Narcan IV Q2M PRN Opioid Reversal Nitroglycerin 0.4 mg 07/05/17 18:10 07/05/17 18:28 Nitrostat SUBLINGUAL 0.4 mg Q5M PRN Administration Chest Pain Pantoprazole Sodium 40 mg 07/05/17 21:00 07/06/17 08:15 Protonix PO 40 mg BID MARCOS Administration Intake and Output 07/05/17 07/06/17 07/06/17 22:59 06:59 14:59 Intake Total 240 Balance 240 Intake: Oral 240 Other: Voiding Method Toilet # Voids 3 Weight 94.2 kg 07/06/17 06:07 07/06/17 06:07 Assessment and Plan Assessment: ASSESSMENT 1. Chest pain, atypical with pleuritic component. An acute coronary event has been ruled out with no EKG evidence of ischemia and negative cardiac enzymes. Recent stress test normal. 2. History of paroxysmal atrial fibrillation, currently maintaining sinus mechanism 3. Febrile illness 4. Leukocytosis 5. Chronic tobacco use 6. Dyslipidemia PLAN An acute coronary event has been ruled out. Lifestyle modifications discussed for lipid lowering as well as smoking cessation. Stable from a cardiac perspective. Follow up with Dr. Kyle as regularly scheduled. Thank you kindly for this consultation. Nurse Practitioner note has been reviewed, I agree with a documented findings and plan of care. Patient was seen and examined.
== END 2017-07-06 13:05 | disposition home or self-care (01) ==
LOC: EC 08:24 → 3OBS 11:54
PROVIDERS: ADMIT Internal Medicine; ATTEND Internal Medicine
DX: K21.9 Gastro-esophageal reflux disease without esophagitis (principal); J44.1 Chronic obstructive pulmonary disease with (acute) exacerbation; J44.0 Chronic obstructive pulmonary disease with (acute) lower respiratory infection; J20.9 Acute bronchitis, unspecified; R07.89 Other chest pain; I48.0 Paroxysmal atrial fibrillation; I10 Essential (primary) hypertension; E78.00 Pure hypercholesterolemia, unspecified; E78.5 Hyperlipidemia, unspecified; F17.210 Nicotine dependence, cigarettes, uncomplicated; M19.90 Unspecified osteoarthritis, unspecified site; K57.90 Diverticulosis of intestine, part unspecified, without perforation or abscess without bleeding; M54.9 Dorsalgia, unspecified; G89.29 Other chronic pain; F31.9 Bipolar disorder, unspecified; F41.0 Panic disorder [episodic paroxysmal anxiety]; M79.1 Myalgia; F41.9 Anxiety disorder, unspecified; R73.9 Hyperglycemia, unspecified; T38.0X5A Adverse effect of glucocorticoids and synthetic analogues, initial encounter; Z79.51 Long term (current) use of inhaled steroids; Z79.899 Other long term (current) drug therapy; Z86.14 Personal history of Methicillin resistant Staphylococcus aureus infection; Z82.5 Family history of asthma and other chronic lower respiratory diseases; Z82.49 Family history of ischemic heart disease and other diseases of the circulatory system; Z83.6 Family history of other diseases of the respiratory system; Z83.3 Family history of diabetes mellitus; Z81.2 Family history of tobacco abuse and dependence
CPT/HCPCS: 99285 ×2; 96374 ×2; 96361 ×9; 96375; 96376 ×2; 36415; 94640 ×3; 94760; 85379; 83880; 80061; 80053 ×2; 84443; 82150; 82550; 82553; 83690; 83735 ×2; 84484; 85025 ×2; 85610; 85730; 87502; 83036; 71046; G0378 ×2; J1644; J2930 ×2

== ENCOUNTER 2017-08-08 10:13 | Day surgery (SDC) | payer OTHER ==
[2017-08-07 11:41] VITALS: BMI 32.3
[~2017-08-08 10:13] MED LIST: LACTATED RINGERS 1,000 ML IV SCH; LIDOCAINE 1% 20 ML VIAL (10MG/ML) FOR IV START INTRADERMA PRN
[2017-08-08 11:30] VITALS: RESP 16; TEMP 97.5
[2017-08-08] MEDS ORDERED: LIDOCAINE HCL/PF 20 MG/ML 10 ML AMP ONE (12:02)
[2017-08-08] MEDS ORDERED: PROPOFOL 10 MG/ML 20 ML VIAL IV ONE (12:02)
[2017-08-08] MEDS ORDERED: LIDOCAINE 1% INJ 10MG/ML (20 ML MDV) ONE (12:02)
[2017-08-08] MEDS ORDERED: fentaNYL (PF) 50 MCG/ML 2 ML AMP ONE (12:02)
--- NOTE | 2017-08-08 12:40 | P.PCN ---
Date of Procedure: 08/08/17 Procedure(s) Performed: Procedure: Esophagogastroduodenoscopy and biopsy. Preoperative diagnosis: History of chronic reflux and atypical chest pains. Postoperative diagnosis: 1. Gastritis and duodenitis with no ulcers or gastric outlet obstruction or bleeding. 2. Prior Hieu fundoplication with no obvious esophagitis or complicated reflux disease. 3. Biopsies obtained from the duodenum, antrum and esophagus. Preparation sedation: Was provided by anesthesia Brief clinical history: The patient is a 46-year-old male with history of Hieu fundoplication for chronic reflux around 2009. The patient has been having reflux type symptoms and atypical chest pains recently with negative cardiac workup. This evaluation is scheduled to assess for esophagitis, complicated reflux disease or other pathology. Procedure: With the patient on his left lateral decubitus position and after informed consent and adequate sedation, I passed the Olympus-GIF 160 video upper endoscope through the cricopharyngeus down the esophagus. Was no definite hiatal hernia or any esophagitis or complicated reflux disease. The endoscope was then passed into the stomach which was insufflated with air and inspected in detail including the retroflex view in the cardia. Finally, the endoscope was passed through the pylorus into the duodenum. Pyloric channel did not show any ulcers. However, both the antrum and the duodenal bulb showed areas of erythema and linear erosions/superficial ulceration but no large ulcers or bleeding. Post bulbar area and descending duodenum appeared healthy. I obtained biopsies from the duodenum, antrum and esophagus before the endoscope was withdrawn. In the retroflex view in the cardia, I could see the evidence of the prior Hieu fundoplication but the wrap did not appear to be tight and seems to be still in place. The patient tolerated the procedure well. Plan: The patient was reassured. Will await biopsy results and make further plans based on his course and biopsy results. I will keep you updated on his progress.
[2017-08-08 12:47] VITALS: BP 112/74; PULSE 76
== END 2017-08-08 13:12 | disposition home or self-care (01) ==
LOC: ORWHC2ENDO 10:13
DX: K31.9 Disease of stomach and duodenum, unspecified (principal); K21.0 Gastro-esophageal reflux disease with esophagitis; K29.70 Gastritis, unspecified, without bleeding; K29.80 Duodenitis without bleeding; J45.909 Unspecified asthma, uncomplicated; I48.91 Unspecified atrial fibrillation; M19.90 Unspecified osteoarthritis, unspecified site; E78.5 Hyperlipidemia, unspecified; K92.2 Gastrointestinal hemorrhage, unspecified; Z79.51 Long term (current) use of inhaled steroids; Z79.899 Other long term (current) drug therapy
CPT/HCPCS: 88305; 43239; J2001; J3010; J2704

== ENCOUNTER 2017-11-12 03:32 | Emergency (ER) | payer OTHER ==
--- NOTE | 2017-11-12 04:05 | ED ---
General Adult HPI - General Chief complaint: Psychiatric Symptoms Stated complaint: Mental Health Time Seen by Provider: 11/12/17 03:35 Source: patient, EMS, RN notes reviewed, old records reviewed Mode of arrival: EMS Limitations: no limitations - History of Present Illness Initial comments: 47-year-old male presents with alcohol intoxication and suicidal ideation. He has been petitioned by his daughter. According to EMS he has been attempting to jump out in front of traffic. There was no reported injury. Patient does admit to drinking alcohol today. Denies any other ingestion. Denies any pain complaints. While initially obtain a urine sample, the patient is found in the restroom in the prone position. There is no external signs of trauma. Uncertain if the patient fell or if he laid himself on the bathroom floor. - Related Data Home Medications Medication Instructions Recorded Confirmed ALPRAZolam [Xanax] 0.25 mg PO BID PRN 11/12/17 11/12/17 Albuterol Inhaler [Ventolin Hfa 2 puff INHALATION RT-Q6H PRN 11/12/17 11/12/17 Inhaler] Budesonide/Formoterol Fumarate 2 puff INHALATION RT-BID 11/12/17 11/12/17 [Symbicort 160-4.5 Mcg Inhaler] Previous Rx's Medication Instructions Recorded Atorvastatin [Lipitor] 40 mg PO HS #30 tablet 07/06/17 Loratadine [Claritin] 10 mg PO DAILY #10 tab 07/06/17 Mag Hydrox/Al Hydrox/Simeth 15 ml PO Q6HR PRN #10 cup 07/06/17 [Maalox] Allergies Allergy/AdvReac Type Severity Reaction Status Date / Time No Known Allergies Allergy Verified 11/12/17 13:07 Review of Systems ROS Statement: Those systems with pertinent positive or pertinent negative responses have been documented in the HPI. ROS Other: All systems not noted in ROS Statement are negative. Past Medical History Past Medical History: Atrial Fibrillation, Asthma, GI Bleed, Hyperlipidemia, Osteoarthritis (OA) Additional Past Medical History / Comment(s): Afib, bronchitis, arthritis multiple joints, lower GI bleed, DIVERTICULITIS History of Any Multi-Drug Resistant Organisms: MRSA Date of last positivie culture/infection: 10/20/07 MDRO Source:: L leg Past Surgical History: No Surgical Hx Reported, Hernia Repair, Orthopedic Surgery Additional Past Surgical History / Comment(s): Back pain injections and lumbar spine nerve ablatio, colonoscopy, Hieu fundoplasty, L inguinal hernia repair as a child, L knee debridement of Mrsa infection around 2007. Past Anesthesia/Blood Transfusion Reactions: No Reported Reaction Additional Past Anesthesia/Blood Transfusion Reaction / Comment(s): Never has recieved blood. Past Psychological History: Anxiety, Bipolar, Depression Smoking Status: Current every day smoker Past Alcohol Use History: Occasional Past Drug Use History: None Reported - Past Family History Father Family Medical History: COPD, Coronary Artery Disease (CAD) Additional Family Medical History / Comment(s): Father at age 49yrs of lung dx. Father was a smoker. Mother Family Medical History: Coronary Artery Disease (CAD), Diabetes Mellitus Additional Family Medical History / Comment(s): Mother at age 63 yrs. General Exam Limitations: no limitations General appearance: alert, in no apparent distress, appears intoxicated Head exam: Present: atraumatic, normocephalic Eye exam: Present: normal appearance, PERRL, EOMI ENT exam: Present: normal exam Neck exam: Present: normal inspection. Absent: tenderness, meningismus Respiratory exam: Present: normal lung sounds bilaterally. Absent: respiratory distress, wheezes Cardiovascular Exam: Present: regular rate, normal rhythm GI/Abdominal exam: Present: soft. Absent: distended, tenderness Extremities exam: Present: normal inspection, normal capillary refill. Absent: pedal edema Back exam: Present: normal inspection, full ROM. Absent: tenderness Neurological exam: Present: alert, oriented X3, CN II-XII intact. Absent: motor sensory deficit Psychiatric exam: Present: depressed, agitated, suicidal ideation Skin exam: Present: warm, dry, intact. Absent: cyanosis, diaphoretic Course Vital Signs 11/12/17 11/12/17 11/12/17 03:45 12:22 14:00 Temperature 97.1 F L Pulse Rate 118 H Respiratory 16 16 16 Rate Blood Pressure 152/90 O2 Sat by Pulse 97 Oximetry 11/12/17 11/12/17 11/12/17 15:25 19:20 22:17 Temperature 98.0 F 97.8 F Pulse Rate 79 78 69 Respiratory 16 16 16 Rate Blood Pressure 141/88 146/94 129/79 O2 Sat by Pulse 98 97 98 Oximetry 11/13/17 11/13/17 06:28 08:26 Temperature Pulse Rate 76 72 Respiratory 15 18 Rate Blood Pressure 138/75 137/82 O2 Sat by Pulse 98 98 Oximetry - Reevaluation(s) Reevaluation #1: 11/12/17 0700 Patient's care is signed out at shift change awaiting sobriety and EPS evaluation. Reevaluation #2: 11/12/17 03:38 Patient was found laying in the restroom, nurse was outside the restroom while the patient was using the facility. There was no noise to indicate a fall. It appears that the patient did lay down on the bathroom floor. There is no external signs of trauma on exam. However he is intoxicated. Head CT as well as C-spine is ordered however patient declines this imaging. He has a nonfocal neurologic exam with normal bilateral pupils. Patient is observed in the emergency department with no deterioration in his mental status. He continues to decline imaging as he gains sobriety. On reevaluation after 4 hours in the emergency department he has normal neurologic exam. Equal and reactive Pupils. No complaints of headache or neck pain. Imaging can be held at this time in compliance with patient's wishes. Procedures - Restraint - Face to Face Restraint Occurrence 1 Patient's Immediate Situation: Endangers self safety, Endangers others' safety, Endangers staff safety, Violent behavior Patient's Reaction to the Intervention: Cooperative, Angry, Hostile Patient's Medical & Behavioral Condition: Awake, Alert, Follows directions, Anxious, Agitated Need to Continue or Terminate Restraint or Seclusion: Continue Face to Face Eval of Restraint Date: 11/12/17 Face to Face Eval of Restraint Time: 05:10 Restraint Occurrence 2 Patient's Immediate Situation: Endangers self safety, Endangers others' safety, Endangers staff safety, Violent behavior Patient's Reaction to the Intervention: Appropriate, Calm, Relaxed Patient's Medical & Behavioral Condition: Awake, Alert, Follows directions Need to Continue or Terminate Restraint or Seclusion: Terminate Face to Face Eval of Restraint Date: 11/12/17 Face to Face Eval of Restraint Time: 07:31 Medical Decision Making - Medical Decision Making 47-year-old male initially presenting with alcohol intoxication and suicidal ideation. Patient was initially quite aggressive, did require restraints. After the patient became sober he was called, cooperative. He was evaluated by EPS on multiple occasions as well as the mobile crisis unit. Patient no longer suicidal, no homicidal ideation. He is awake and alert and very cooperative. He will be discharged home with outpatient follow-up. - Lab Data Lab Results 11/12/17 Range/Units 15:20 Urine Opiates Screen Not Detected (NotDetected) Ur Oxycodone Screen Not Detected (NotDetected) Urine Methadone Screen Not Detected (NotDetected) Ur Propoxyphene Screen Not Detected (NotDetected) Ur Barbiturates Screen Not Detected (NotDetected) U Tricyclic Antidepress Not Detected (NotDetected) Ur Phencyclidine Scrn Not Detected (NotDetected) Ur Amphetamines Screen Not Detected (NotDetected) U Methamphetamines Scrn Not Detected (NotDetected) U Benzodiazepines Scrn Detected H (NotDetected) Urine Cocaine Screen Not Detected (NotDetected) U Marijuana (THC) Screen Not Detected (NotDetected) Disposition Clinical Impression: Depression, Alcohol intoxication Disposition: HOME SELF-CARE Condition: Good Instructions: Alcohol Intoxication (ED) Is patient prescribed a controlled substance at d/c from ED?: No Referrals: Elmo Gomes MD [Primary Care Provider] - 1-2 days Time of Disposition: 12:37
[2017-11-12] MEDS ORDERED: LORazepam 2 MG/ML INJ IV STA (04:50)
[2017-11-12] MEDS ORDERED: ASPIRIN 325 MG TAB PO STA (09:54)
[2017-11-12] MEDS ORDERED: NICOTINE 21MG/24HR PATCH TRANSDERM STA (15:20)
[2017-11-12 15:52] LABS: Amphetamine Screen,Urine Not Detected (NotDetected); Barbiturate Screen,Urine Not Detected (NotDetected); Benzodiazepines Screen,Urine Detected (NotDetected); Cocaine Screen,Urine Not Detected (NotDetected); Methadone Screen, Urine Not Detected (NotDetected); Opiate Screen,Urine Not Detected (NotDetected); Oxycodone Screen, Urine Not Detected (NotDetected); Phencyclidine Screen,Urine Not Detected (NotDetected); Tricyclic Antidepressant,Urine Not Detected (NotDetected); Urn Cannabinoid Scrn Not Detected (NotDetected)
[2017-11-12] MEDS ORDERED: MAG HYDROX/AL HYDROX/SIMETH 30 ML CUP PO PRN (16:05)
[2017-11-12] MEDS ORDERED: ALBUTEROL NEBULIZED 2.5 MG/3 ML INHALATION PRN (16:05)
--- NOTE | 2017-11-12 17:41 | CT ---
EXAMINATION TYPE: CT brain nancy wo con DATE OF EXAM: 11/12/2017 COMPARISON: 06/09/2016 HISTORY: Posterior head injury, pain to head and neck. CT DLP: 1574.8 mGycm Automated exposure control for dose reduction was used. TECHNIQUE: CT scan of the head and cervical spine are performed without contrast. FINDINGS: Ventricles and sulci appear normal. There is no mass effect nor midline shift. There is n o sign of intracranial hemorrhage. The calvarium is intact. There is mucosal thickening in the left m axillary sinus. The cervical vertebra have normal spacing and alignment. Posterior elements are intact. Skull base is intact. IMPRESSION: Negative CT scan of the brain. Negative CT scan of the cervical spine. Left maxillary sinusitis. This appears similar to old CT scan.
[2017-11-12] MEDS: ALPRAZolam 0.25 MG TAB PO PRN (19:14)
[2017-11-12] MEDS ORDERED: SYMBICORT 160-4.5 MCG INHALER INHALATION SCH (20:00)
[2017-11-12] MEDS ORDERED: ATORVASTATIN 40 MG TAB PO SCH (21:00)
[2017-11-13] MEDS: ALPRAZolam 0.25 MG TAB PO PRN ×2 (01:24→08:24)
[2017-11-13] MEDS ORDERED: LORATADINE 10 MG TAB PO SCH (09:00)
[2017-11-13 12:56] VITALS: BP 147/73; PULSE 73; RESP 16; TEMP 97.9
== END 2017-11-13 13:04 | disposition home or self-care (01) ==
LOC: EC 03:32
DX: F32.9 Major depressive disorder, single episode, unspecified (principal); F10.120 Alcohol abuse with intoxication, uncomplicated; F41.9 Anxiety disorder, unspecified; J45.909 Unspecified asthma, uncomplicated; F17.200 Nicotine dependence, unspecified, uncomplicated; Z86.14 Personal history of Methicillin resistant Staphylococcus aureus infection; Z79.51 Long term (current) use of inhaled steroids; Z82.5 Family history of asthma and other chronic lower respiratory diseases
CPT/HCPCS: 82075; 94640; 80306; 72125; 70450; 99285; 96374; S4990; J2060

== ENCOUNTER → 2018-05-08 | Outpatient (CLI) | payer OTHER ==
--- NOTE | 2018-05-08 14:59 | CT ---
EXAMINATION TYPE: CT abdomen pelvis w con DATE OF EXAM: 05/08/2018 COMPARISON: CT abdomen pelvis March 03, 2014 HISTORY: Left sided abdominal pain with diarrhea x 2-[address] DLP: 1391 mGycm, Automated Exposure Control for Dose Reduction was Utilized. CONTRAST: CT scan of the abdomen and pelvis is performed with oral and with IV Contrast, patient injected with 100 mL of Isovue M300. FINDINGS: LUNG BASES: No significant abnormality is appreciated. LIVER/GB: No significant abnormality is appreciated. PANCREAS: No significant abnormality is seen. SPLEEN: No significant abnormality is seen. ADRENALS: No significant abnormality is seen. KIDNEYS: No significant abnormality is seen. BOWEL: Surgical clips just below diaphragm epigastric region are present product of Ean fundoplica tion surgery. No recurrent hiatal hernia is seen. Oral contrast does not reach level of terminal ileu m making evaluation of distal bowel slightly suboptimal. There is no suspicious small or large bowel dilatation. PROSTATE/SEMINAL VESICLES: No gross abnormality seen. LYMPH NODES: No greater than 1cm abdominal or pelvic lymph nodes are appreciated. OSSEOUS STRUCTURES: No significant abnormality is seen. OTHER: Mild mixed plaque distal abdominal aorta is seen. IMPRESSION: No significant acute finding is seen to account for patient's clinical symptoms of left sided pain and diarrhea.
== END ==
LOC: RADCTMAIN 13:09
PROVIDERS: ATTEND Surgery
DX: R10.9 Unspecified abdominal pain (principal)
CPT/HCPCS: 74177; Q9967

== ENCOUNTER → 2019-03-11 | Outpatient (CLI) | payer OTHER ==
[2019-03-11 17:18] LABS: Albumin 4.9 g/dL (3.80-4.90); Albumin/Globulin Ratio 2.72 (1.60-3.17); Bilirubin, Conjugated 0.2 mg/dL (0.20-0.40); Bilirubin,Unconjugated 0.3 mg/dL; Chol/HDL Ratio 4.2; Globulin 1.8 g/dL (1.6-3.3); LDL Cholesterol,Calculated 69.6 mg/dL (0.0-131.0); Total Bilirubin 0.5 mg/dL (0.2-1.2); Total Protein 6.7 g/dL (6.2-8.2); VLDL Calculation 26.4 mg/dL (5.00-40.00)
== END | disposition home or self-care (01) ==
LOC: LABWHC1 11:55
PROVIDERS: ATTEND Family Medicine
DX: E78.5 Hyperlipidemia, unspecified (principal)
CPT/HCPCS: 36415; 80061; 80076

== ENCOUNTER → 2019-05-06 | Outpatient (CLI) | payer OTHER ==
--- NOTE | 2019-05-06 22:25 | EST ---
EXERCISE STRESS AGE: 48 SEX: Male HT: 5 feet 6 inches WT: 202 PROTOCOL: Kwaku STAGE: 3 DURATION OF EXERCISE: 9:00 HEART RATE REST: 75 BLOOD PRESSURE REST: 119/80 MAXIMUM HEART RATE ACHIEVED: 153 MAXIMUM BLOOD PRESSURE: 210/86 85% MPHR: 148 100% MPHR: 174 METS: 10.1 INDICATIONS: Chest pain. CLINICAL INFORMATION: Baseline EKG revealed normal sinus rhythm without significant ST-T changes. Patient walked on a standard Kwaku protocol for 9 minutes, achieved a maximal heart rate of 153 beats per minute, developed fatigue, shortness of breath, but did not have any angina. There were no EKG changes to indicate ischemia and there was no arrhythmia. By EKG criteria, this is a negative stress test with fair exercise capacity. FINAL IMPRESSION: Negative stress test with fair exercise capacity and no evidence of ischemia. MMODL / IJN: [id number] /
== END | disposition home or self-care (01) ==
LOC: RADNMMAIN 07:42
PROVIDERS: ATTEND Family Medicine
DX: R07.9 Chest pain, unspecified (principal); R00.0 Tachycardia, unspecified; R06.02 Shortness of breath
CPT/HCPCS: 93017; 93225; 93226

== ENCOUNTER → 2020-06-18 | Outpatient (CLI) | payer OTHER | END | disposition home or self-care (01) | LOC: LABWHC1 10:48 | PROVIDERS: ATTEND Family Medicine | DX: R06.02 Shortness of breath (principal); R07.9 Chest pain, unspecified | CPT/HCPCS: 36415; 83880; 84484; 85379 ==

== ENCOUNTER 2022-01-06 10:19 | Day surgery (SDC) | payer OTHER ==
[2021-12-15 08:41] VITALS: BMI 36.0
[~2022-01-06 10:19] MED LIST changes: -LIDOCAINE 1% 20 ML VIAL (10MG/ML) FOR IV START INTRADERMA PRN
[2022-01-06 12:00] VITALS: TEMP 96.7
[2022-01-06] MEDS ORDERED: MIDAZOLAM 2 MG/2 ML VIAL ONE (12:29)
[2022-01-06] MEDS ORDERED: fentaNYL (PF) 50 MCG/ML 2 ML AMP ONE (12:29)
[2022-01-06] MEDS ORDERED: ESMOLOL 100 MG/10 ML VIAL ONE (12:29)
[2022-01-06] MEDS ORDERED: PROPOFOL 10 MG/ML 20 ML VIAL IV ONE (12:29)
[2022-01-06] MEDS ORDERED: LIDOCAINE 2% INJ 20 MG/ML (2 ML VIAL) ONE (12:29)
--- NOTE | 2022-01-06 12:33 | P.GSHP ---
History of Present Illness H&P Date: 01/06/22 Chief Complaint: GI bleed This a 51-year-old male with history of GI bleed. Patient presents today for EGD and colonoscopy Past Medical History Past Medical History: Atrial Fibrillation, Asthma, GI Bleed, Hyperlipidemia, Hypertension, Osteoarthritis (OA), Skin Disorder Additional Past Medical History / Comment(s): Hx bronchitis, hx lower GI bleed, hx DIVERTICULITIS, Psoriasis. History of Any Multi-Drug Resistant Organisms: MRSA Date of last positivie culture/infection: 10/20/07 MDRO Source:: L leg Past Surgical History: Hernia Repair, Orthopedic Surgery Additional Past Surgical History / Comment(s): Back pain injections and lumbar spine nerve ablation, colonoscopy, Hieu Fundoplasty, left inguinal hernia repair, left knee debridement of MRSA infection around 2007. Past Anesthesia/Blood Transfusion Reactions: No Reported Reaction Additional Past Anesthesia/Blood Transfusion Reaction / Comment(s): Has never recieved blood. Past Psychological History: Anxiety, Bipolar, Depression Additional Psychological History / Comment(s): States doing very well with all this at this time. Smoking Status: Former smoker Past Alcohol Use History: Occasional Additional Past Alcohol Use History / Comment(s): Started smoking in 1995 and quit 1 yr ago. Past Drug Use History: None Reported - Past Family History Father Family Medical History: COPD, Coronary Artery Disease (CAD) Additional Family Medical History / Comment(s): Father at age 49yrs of lung dx. Father was a smoker. Mother Family Medical History: Coronary Artery Disease (CAD), Diabetes Mellitus Additional Family Medical History / Comment(s): Mother at age 63 yrs. Medications and Allergies Home Medications Medication Instructions Recorded Confirmed Type Loratadine [Claritin] 10 mg PO DAILY #10 tab 07/06/17 01/04/22 Rx Albuterol Inhaler [Ventolin Hfa 2 puff INHALATION Q6H PRN 11/12/17 01/04/22 History Inhaler] Budesonide/Formoterol Fumarate 2 puff INHALATION BID PRN 11/12/17 01/04/22 History [Symbicort 160-4.5 Mcg Inhaler] Atorvastatin Calcium [Lipitor] 80 mg PO DAILY 12/15/21 01/04/22 History Famotidine [Pepcid] 20 mg PO DAILY 12/15/21 01/04/22 History Metoprolol Succinate (ER) [Toprol 50 mg PO QAM 12/15/21 01/04/22 History Xl] Montelukast Sodium [Singulair] 10 mg PO DAILY 12/15/21 01/04/22 History Pantoprazole Sodium [Protonix] 40 mg PO DAILY 12/15/21 01/04/22 History Sucralfate [Carafate] 1 gm PO QID PRN 12/15/21 01/04/22 History lisinopriL [Zestril] 20 mg PO QAM 12/15/21 01/04/22 History Allergies Allergy/AdvReac Type Severity Reaction Status Date / Time No Known Allergies Allergy Verified 01/06/22 11:55 Surgical - Exam Vital Signs Temp Pulse Resp BP Pulse Ox 96.7 F L 63 18 109/75 99 01/06/22 11:59 01/06/22 11:59 01/06/22 11:59 01/06/22 11:59 01/06/22 11:59 - General well developed, well nourished, no distress - Eyes PERRL - ENT normal pinna - Neck no masses - Respiratory normal expansion - Cardiovascular Rhythm: regular - Abdomen Abdomen: soft, non tender Assessment and Plan Assessment: History of GI bleed. We'll perform EGD and colonoscopy.
--- NOTE | 2022-01-06 12:47 | P.OP ---
Date of Procedure: 01/06/22 Preoperative Diagnosis: GI bleed Postoperative Diagnosis: Antral gastritis Internal and external hemorrhoids Procedure(s) Performed: EGD Colonoscopy Anesthesia: MAC Surgeon: Chaz Phan Pathology: other (Antrum) Condition: stable Disposition: PACU Description of Procedure: The patient's placed on the endoscopy table in the lateral position. He received IV sedation. The gastro-/oropharynx passed in the esophagus into the stomach. Scope was placed through the pylorus. The first and second portion of the duodenum appeared normal. Scope summer back the antrum this was minimal inflamed. A biopsies performed. The scope was then retroflexed and the remainder the stomach appeared normal. The GE junction was at 40 cm. There was no significant hiatal hernia. The distal esophagus appeared normal. The proximal esophagus appeared normal. Scope was then withdrawn. There is no evidence of any upper GI bleed. Next digital rectal exam was performed. This revealed external hemorrhoids. The prostate was symmetrical without nodules. Flexible colonoscope was then placed patient anus and passed throughout the entire colon. The ileocecal valve was visualized. The cecum, ascending and transverse colon appeared normal. The descending and sigmoid colon appeared normal. The scope was then withdrawn the rectum and this was normal. Scope withdrawn for patient. There is no evidence of any GI bleed. Presumed patient may been bleeding from hemorrhoids.
[2022-01-06 13:15] VITALS: BP 110/76; PULSE 87; RESP 18
== END 2022-01-06 13:26 | disposition home or self-care (01) ==
LOC: ORWHC2ENDO 10:19
PROVIDERS: ATTEND Surgery
DX: K29.50 Unspecified chronic gastritis without bleeding (principal); K64.4 Residual hemorrhoidal skin tags; K64.8 Other hemorrhoids; I48.91 Unspecified atrial fibrillation; J45.909 Unspecified asthma, uncomplicated; E78.5 Hyperlipidemia, unspecified; I49.9 Cardiac arrhythmia, unspecified; M19.90 Unspecified osteoarthritis, unspecified site; F41.9 Anxiety disorder, unspecified; F31.9 Bipolar disorder, unspecified; Z87.2 Personal history of diseases of the skin and subcutaneous tissue; Z87.19 Personal history of other diseases of the digestive system; Z86.31 Personal history of diabetic foot ulcer; Z86.14 Personal history of Methicillin resistant Staphylococcus aureus infection; Z98.890 Other specified postprocedural states; Z87.891 Personal history of nicotine dependence; Z86.59 Personal history of other mental and behavioral disorders; Z82.49 Family history of ischemic heart disease and other diseases of the circulatory system; Z83.3 Family history of diabetes mellitus; Z79.2 Long term (current) use of antibiotics; Z79.51 Long term (current) use of inhaled steroids; Z79.02 Long term (current) use of antithrombotics/antiplatelets; Z79.1 Long term (current) use of non-steroidal anti-inflammatories (NSAID); Z79.891 Long term (current) use of opiate analgesic; Z79.01 Long term (current) use of anticoagulants
CPT/HCPCS: 88305; 45378; 43239; J2250; J3010; J2704; J2001

== ENCOUNTER 2022-01-21 16:16 | Inpatient (IN) | payer OTHER ==
--- NOTE | 2022-01-21 17:16 | XR ---
EXAMINATION TYPE: XR chest 2V DATE OF EXAM: 01/21/2022 COMPARISON: 07/05/2017 HISTORY: Chest pain TECHNIQUE: 2 views FINDINGS: Heart is normal. Lungs are clear of infiltrate. No heart failure. There are no hilar masses . Bony thorax is intact. IMPRESSION: No active cardiopulmonary disease. Normal heart. No change.
[2022-01-21 17:33] LABS: Basophils # (A) 0.1 k/uL (0-0.2); Basophils % (A) 0 %; Eosinophils # (A) 0.2 k/uL (0-0.7); Eosinophils % (A) 1 %; HCT 42.6 % (39.0-53.0); HGB 15.5 gm/dL (13.0-17.5); Lymphocytes # (A) 2.7 k/uL (1.0-4.8); Lymphocytes % (A) 18 %; MCHC 36.5 g/dL (31.0-37.0); MCV 90.4 fL (80.0-100.0); Mean Platelet Volume 8.8; Monocytes # (A) 0.8 k/uL (0-1.0); Monocytes % (A) 5 %; Neutrophils # (A) 11.3 k/uL (1.3-7.7); Neutrophils % (A) 75 %; Platelet Count 304 k/uL (150-450); RBC 4.71 m/uL (4.30-5.90); RDW 12.6 % (11.5-15.5); WBC 15.1 k/uL (3.8-10.6)
[2022-01-21 17:41] LABS: Partial Thromboplastin Time 25.8 sec (22.0-30.0); Prothrombin Time 10.6 sec (9.0-12.0)
[2022-01-21 17:47] LABS: ALT 22 U/L (4-49); AST 20 U/L (17-59); African American GFR (CKD) >90 (>60 ml/min/1.73 sqM); Albumin 4.7 g/dL (3.5-5.0); Alkaline Phosphatase 105 U/L (38-126); Anion Gap 15 mmol/L; Blood Urea Nitrogen 10 mg/dL (9-20); Calcium 9.4 mg/dL (8.4-10.2); Carbon Dioxide 26 mmol/L (22-30); Chloride 100 mmol/L (98-107); Glucose 96 mg/dL (74-99); Non-African American GFR(CKD) >90 (>60 ml/min/1.73 sqM); Potassium 3.7 mmol/L (3.5-5.1); Sodium 141 mmol/L (137-145); Total Bilirubin 1.1 mg/dL (0.2-1.3); Total Protein 7.3 g/dL (6.3-8.2)
[2022-01-21] MEDS ORDERED: ASPIRIN 81 MG PO STA (19:56)
[2022-01-21] MEDS: METOPROLOL TARTRATE 5 MG/5 ML VIAL IVP SCH ×3 (20:09→20:45)
[2022-01-21 20:20] LABS: Appearance,Urine Clear (Clear); Bilirubin,Urine Negative (Negative); Blood,Urine Negative (Negative); Color,Urine Yellow; Glucose,Urine (UA) Negative (Negative); Ketones,Urine Negative (Negative); Leukocyte Esterase,Urine Negative (Negative); Nitrite,Urine Negative (Negative); Protein,Urine Negative (Negative); Specific Gravity,Urine 1.015 (1.001-1.035); Urobilinogen,Urine <2.0 mg/dL (<2.0)
[2022-01-21] MEDS ORDERED: HEPARIN SODIUM 1,000 UN/ML (10ML VL) IV PRN (21:02)
[2022-01-21] MEDS ORDERED: HEPARIN SODIUM 1,000 UN/ML (10ML VL) IV ONE (21:02)
[2022-01-21] MEDS ORDERED: METOPROLOL TARTRATE 25 MG TAB PO STA (21:02)
[2022-01-21] MEDS ORDERED: NALOXONE 0.4 MG/ML 1 ML VIAL IV PRN (21:09)
--- NOTE | 2022-01-21 21:10 | ED ---
General Adult HPI - General Chief complaint: Chest Pain Stated complaint: chest pains/atrial Fib Time Seen by Provider: 01/21/22 18:56 Source: patient, RN notes reviewed, old records reviewed Mode of arrival: ambulatory Limitations: no limitations - History of Present Illness Initial comments: Patient is a 51-year-old male who was sent in by his PCP over concern for fast heart rate. Does have a history of atrial fibrillation. This poor historian and cannot recall the names of his medications THE top of his head. Believes one of them is Toprol. Uncertain if he is on blood thinning medication. States some mild chest discomfort but no aaron pain. States it is substernal. Denies shortness of breath, lightheadedness. States he intermittently does have chest discomfort like this. He was found to have a fast heart rate at his normal checkup, and was sent here for further evaluation. Does not follow up with a pari mut[employer] clerk. Denies any fevers, chills, cough. Denies any urinary complaints, abdominal pain, nausea, vomiting, diarrhea. No known sick contacts. Presents for further evaluation of a concern for his fast heart rate. - Related Data Home Medications Medication Instructions Recorded Confirmed Budesonide/Formoterol Fumarate 2 puff INHALATION RT-BID PRN 11/12/17 01/21/22 [Symbicort 160-4.5 Mcg Inhaler] Atorvastatin Calcium [Lipitor] 80 mg PO DAILY 12/15/21 01/21/22 Famotidine [Pepcid] 20 mg PO DAILY 12/15/21 01/21/22 Metoprolol Succinate (ER) [Toprol 50 mg PO DAILY 12/15/21 01/21/22 Xl] Montelukast Sodium [Singulair] 10 mg PO DAILY 12/15/21 01/21/22 Pantoprazole Sodium [Protonix] 40 mg PO BID 12/15/21 01/21/22 Sucralfate [Carafate] 1 gm PO QID PRN 12/15/21 01/21/22 lisinopriL [Zestril] 20 mg PO DAILY 12/15/21 01/21/22 ALPRAZolam [Xanax] 0.25 mg PO BID PRN 01/21/22 01/21/22 Previous Rx's Medication Instructions Recorded Loratadine [Claritin] 10 mg PO DAILY #10 tab 07/06/17 Allergies Allergy/AdvReac Type Severity Reaction Status Date / Time No Known Allergies Allergy Verified 01/21/22 16:26 Review of Systems ROS Statement: Those systems with pertinent positive or pertinent negative responses have been documented in the HPI. Review of Systems: CONST: Denies fever EYES: Denies blurry vision ENT: Denies nasal congestion C/V: Endorses chest discomfort RESP: Denies shortness of breath GI: Denies abdominal pain : Denies dysuria SKIN: Denies rash. MSK: Denies joint pain. NEURO: Denies headache ROS Other: All systems not noted in ROS Statement are negative. Past Medical History Past Medical History: Atrial Fibrillation, Asthma, GI Bleed, Hyperlipidemia, Hypertension, Osteoarthritis (OA), Skin Disorder Additional Past Medical History / Comment(s): Hx bronchitis, hx lower GI bleed, hx DIVERTICULITIS, Psoriasis. History of Any Multi-Drug Resistant Organisms: MRSA Date of last positivie culture/infection: 10/20/07 MDRO Source:: L leg Past Surgical History: Hernia Repair, Orthopedic Surgery Additional Past Surgical History / Comment(s): Back pain injections and lumbar spine nerve ablation, colonoscopy, Hieu Fundoplasty, left inguinal hernia repair, left knee debridement of MRSA infection around 2007. Past Anesthesia/Blood Transfusion Reactions: No Reported Reaction Additional Past Anesthesia/Blood Transfusion Reaction / Comment(s): Has never recieved blood. Past Psychological History: Anxiety, Bipolar, Depression Smoking Status: Former smoker Past Alcohol Use History: Occasional Past Drug Use History: None Reported - Past Family History Father Family Medical History: COPD, Coronary Artery Disease (CAD) Additional Family Medical History / Comment(s): Father at age 49yrs of lung dx. Father was a smoker. Mother Family Medical History: Coronary Artery Disease (CAD), Diabetes Mellitus Additional Family Medical History / Comment(s): Mother at age 63 yrs. General Exam - General Exam Comments Initial Comments: General: Appears in no acute distress. HEAD: Normal with no signs of head trauma. EYES: PERRLA, EOMI, conjunctiva normal, no discharge. ENT: Hearing grossly intact, normal oropharynx. RESPIRATORY: Clear breath sounds bilaterally. No wheezes, rales, or rhonchi. C/V: Irregular rate and rhythm. S1 and S2 auscultated. Peripheral pulses 2+ and intact throughout. No peripheral edema. ABD: Abd is soft, nontender, nondistended EXT: Normal range of motion, no obvious deformity SKIN: No rashes or lesions observed on exposed skin. NEURO: Alert and oriented 4. Limitations: no limitations Course Vital Signs 01/21/22 01/21/22 01/21/22 16:24 18:55 19:04 Temperature 98.2 F Pulse Rate 63 113 H Pulse Rate [ 131 H Lead Systems Engineer ] Respiratory 16 18 Rate Blood Pressure 147/85 112/87 O2 Sat by Pulse 99 98 Oximetry 01/21/22 01/21/22 01/21/22 20:13 20:19 20:38 Temperature Pulse Rate 117 H 112 H 103 H Pulse Rate [ Lead Systems Engineer ] Respiratory 16 17 16 Rate Blood Pressure 114/94 115/83 111/86 O2 Sat by Pulse 99 97 98 Oximetry 01/21/22 22:05 Temperature Pulse Rate 102 H Pulse Rate [ Lead Systems Engineer ] Respiratory 16 Rate Blood Pressure 110/84 O2 Sat by Pulse 97 Oximetry Medical Decision Making - Medical Decision Making Based on the patient's presentation and physical exam, I'm concerned he is in atrial fibrillation with RVR. Unknown reason. Patient is a poor historian. Based on medications right off over the phone from his , it does not appear he is on a blood thinning medication. Unknown reason why. I have contacted indications anticoagulation. Patient states he has not followed up with pari mutuel clerk. Is relatively uncertain regarding his medications. States he is compliant with them. Medicines are remarkable for a tachycardia but otherwise vitals are within acceptable limits. Patient was seen when he was placed in a room. Was initially started in triage. Laboratory studies while patient was in triage shows a leukocytosis of 15 which is likely reactive. Urine is unremarkable. Troponin is undetectable. Remainder labs are unremarkable. Chest x-ray shows no acute cardio pulmonary process. EKG shows atrial fibrillation with RVR. He I discussed the findings with the patient. Heart rate is still 120s to 130s. He is on metoprolol at home and we will attempt sliding down is very with IV metoprolol pushes. He was in agreement this plan. Following 2 doses of 2.5mg IV metoprolol, heart rate did average between 95 and 105. Was loaded with metoprolol. I did start him on a heparin drip as I believe he should be anticoagulation considering his history of atrial fibrillation and lack of follow-up with cardiology. He was in agreement with this plan. We will admit him to have cardiology evaluate the patient. Vital signs remained within except for limits. He was in agreement with this plan. I spoke with the admitting team, ROSALIE Garcia of the [facility] who accepted the patient. [facility] is covering for Dr. Gomes. - Lab Data Result diagrams: 01/21/22 17:29 01/21/22 17:29 Lab Results 01/21/22 01/21/22 01/21/22 Range/Units 17:29 17:29 17:29 WBC 15.1 H (3.8-10.6) k/uL RBC 4.71 (4.30-5.90) m/uL Hgb 15.5 (13.0-17.5) gm/dL Hct 42.6 (39.0-53.0) % MCV 90.4 (80.0-100.0) fL MCH 33.0 (25.0-35.0) pg MCHC 36.5 (31.0-37.0) g/dL RDW 12.6 (11.5-15.5) % Plt Count 304 (150-450) k/uL MPV 8.8 Neutrophils % 75 % Lymphocytes % 18 % Monocytes % 5 % Eosinophils % 1 % Basophils % 0 % Neutrophils # 11.3 H (1.3-7.7) k/uL Lymphocytes # 2.7 (1.0-4.8) k/uL Monocytes # 0.8 (0-1.0) k/uL Eosinophils # 0.2 (0-0.7) k/uL Basophils # 0.1 (0-0.2) k/uL PT 10.6 (9.0-12.0) sec INR 1.0 (<1.2) APTT 25.8 (22.0-30.0) sec Sodium 141 (137-145) mmol/L Potassium 3.7 (3.5-5.1) mmol/L Chloride 100 (98-107) mmol/L Carbon Dioxide 26 (22-30) mmol/L Anion Gap 15 mmol/L BUN 10 (9-20) mg/dL Creatinine 0.71 (0.66-1.25) mg/dL Est GFR (CKD-EPI)AfAm >90 (>60 ml/min/1.73 sqM) Est GFR (CKD-EPI)NonAf >90 (>60 ml/min/1.73 sqM) Glucose 96 (74-99) mg/dL Calcium 9.4 (8.4-10.2) mg/dL Magnesium 2.0 (1.6-2.3) mg/dL Total Bilirubin 1.1 (0.2-1.3) mg/dL AST 20 (17-59) U/L ALT 22 (4-49) U/L Alkaline Phosphatase 105 (38-126) U/L Troponin I (0.000-0.034) ng/mL Total Protein 7.3 (6.3-8.2) g/dL Albumin 4.7 (3.5-5.0) g/dL Urine Color Urine Appearance (Clear) Urine pH (5.0-8.0) Ur Specific [place] (1.001-1.035) Urine Protein (Negative) Urine Glucose (UA) (Negative) Urine Ketones (Negative) Urine Blood (Negative) Urine Nitrite (Negative) Urine Bilirubin (Negative) Urine Urobilinogen (<2.0) mg/dL Ur Leukocyte Esterase (Negative) 01/21/22 01/21/22 Range/Units 17:29 20:12 WBC (3.8-10.6) k/uL RBC (4.30-5.90) m/uL Hgb (13.0-17.5) gm/dL Hct (39.0-53.0) % MCV (80.0-100.0) fL MCH (25.0-35.0) pg MCHC (31.0-37.0) g/dL RDW (11.5-15.5) % Plt Count (150-450) k/uL MPV Neutrophils % % Lymphocytes % % Monocytes % % Eosinophils % % Basophils % % Neutrophils # (1.3-7.7) k/uL Lymphocytes # (1.0-4.8) k/uL Monocytes # (0-1.0) k/uL Eosinophils # (0-0.7) k/uL Basophils # (0-0.2) k/uL PT (9.0-12.0) sec INR (<1.2) APTT (22.0-30.0) sec Sodium (137-145) mmol/L Potassium (3.5-5.1) mmol/L Chloride (98-107) mmol/L Carbon Dioxide (22-30) mmol/L Anion Gap mmol/L BUN (9-20) mg/dL Creatinine (0.66-1.25) mg/dL Est GFR (CKD-EPI)AfAm (>60 ml/min/1.73 sqM) Est GFR (CKD-EPI)NonAf (>60 ml/min/1.73 sqM) Glucose (74-99) mg/dL Calcium (8.4-10.2) mg/dL Magnesium (1.6-2.3) mg/dL Total Bilirubin (0.2-1.3) mg/dL AST (17-59) U/L ALT (4-49) U/L Alkaline Phosphatase (38-126) U/L Troponin I <0.012 (0.000-0.034) ng/mL Total Protein (6.3-8.2) g/dL Albumin (3.5-5.0) g/dL Urine Color Yellow Urine Appearance Clear (Clear) Urine pH 6.0 (5.0-8.0) Ur Specific [place] 1.015 (1.001-1.035) Urine Protein Negative (Negative) Urine Glucose (UA) Negative (Negative) Urine Ketones Negative (Negative) Urine Blood Negative (Negative) Urine Nitrite Negative (Negative) Urine Bilirubin Negative (Negative) Urine Urobilinogen <2.0 (<2.0) mg/dL Ur Leukocyte Esterase Negative (Negative) - EKG Data -: EKG Interpreted by Me EKG Comments: 12-lead Electrocardiogram Interpretation Note EKG was reviewed and interpreted by myself. 12-lead ECG performed at 1705 is interpreted by me as revealing atrial fibrillation with RVR at a rate of 142 beats per minute. Rigby is normal. QRS duration is 86 ms, QTc is 384 ms. There were no ST or T wave abnormalities to suggest myocardial ischemia or injury. R wave progression across the precordium was satisfactory. By my interpretation this EKG is non-diagnostic for acute ischemia. Critical Care Time Critical Care Time: Yes Total Critical Care Time: 35 Critical Care Time: Upon my evaluation, this patient had a high probability of imminent or life- threatening deterioration due to atrial fibrillation with RVR, which required my direct attention, intervention, and personal management. I have personally provided 35 minutes of critical care time exclusive of time spent on separately billable procedures. Time includes review of laboratory data, radiology results, discussion with consultants, and monitoring for potential decompensation. Interventions were performed as documented in my note. Disposition Clinical Impression: Atrial fibrillation with RVR Disposition: ADMITTED IP TO THIS HOSP Condition: Stable Time of Disposition: 20:45
[2022-01-21] MEDS ORDERED: HEPARIN SOD,PORK IN 0.45% NACL 25,000 UNIT in 0.45% NACL 1 250ML.BAG IV SCH (21:15)
[2022-01-21] MEDS ORDERED: SYMBICORT 160-4.5 MCG INHALER INHALATION PRN (22:38)
[2022-01-21] MEDS: HYDROcodone/APAP 10-325MG 1 EACH TAB PO PRN (23:56)
[2022-01-21] MEDS: ALPRAZolam 0.25 MG TAB PO PRN (23:56)
[2022-01-22 03:12] LABS: Basophils # (A) 0.1 k/uL (0-0.2); Basophils % (A) 1 %; Eosinophils # (A) 0.2 k/uL (0-0.7); Eosinophils % (A) 2 %; HCT 40.4 % (39.0-53.0); HGB 14.3 gm/dL (13.0-17.5); Lymphocytes # (A) 3.6 k/uL (1.0-4.8); Lymphocytes % (A) 36 %; MCH 32.5 pg (25.0-35.0); MCHC 35.3 g/dL (31.0-37.0); Mean Platelet Volume 9.1; Monocytes # (A) 0.6 k/uL (0-1.0); Monocytes % (A) 6 %; Neutrophils # (A) 5.5 k/uL (1.3-7.7); Neutrophils % (A) 55 %; Platelet Count 267 k/uL (150-450); RBC 4.39 m/uL (4.30-5.90); RDW 13.1 % (11.5-15.5); WBC 10.1 k/uL (3.8-10.6)
[2022-01-22 03:23] LABS: Partial Thromboplastin Time 32.1 sec (22.0-30.0); Prothrombin Time 10.8 sec (9.0-12.0)
[2022-01-22 03:29] LABS: African American GFR (CKD) >90 (>60 ml/min/1.73 sqM); Anion Gap 10 mmol/L; Blood Urea Nitrogen 13 mg/dL (9-20); Calcium 8.7 mg/dL (8.4-10.2); Carbon Dioxide 25 mmol/L (22-30); Chloride 105 mmol/L (98-107); Glucose 119 mg/dL (74-99); Non-African American GFR(CKD) >90 (>60 ml/min/1.73 sqM); Potassium 3.8 mmol/L (3.5-5.1); Sodium 140 mmol/L (137-145)
--- NOTE | 2022-01-22 06:37 | P.CRDCN ---
History of Present Illness Consult date: 01/22/22 Chief complaint: Palpitations/heart racing History of present illness: This is a very pleasant 51-year-old gentleman with a past medical history significant for hypertension and dyslipidemia and paroxysmal atrial fibrillation who was referred to the hospital/emergency department for further evaluation. The patient was having physical examination for an evaluation for a job. He was found to have irregular heart rhythm. For that reason he was sent to the emergency department. An EKG was performed and showed atrial fibrillation. He was admitted for further evaluation and investigation. The patient stated that he has been experiencing intermittent episodes of palpitations/heart racing intermittently. That was associated sometimes with chest discomfort. No shortness of breath and no dizziness or lightheadedness and no feeling of p resyncope or syncope. He underwent an investigation here including EKG showing atrial fibrillation with overall controlled heart rate and diffuse nonspecific ST and T wave abnormalities. Also he underwent a blood work came in to be unremarkable into of troponin. He does have hypertension and dyslipidemia as risk factor and definitely he stated that he snored during the night concerning for sleep apnea. He never been tested for sleep apnea. Currently he is in A. fib with controlled heart rate. He is on heparin IV. He is also on AV joanne marck agents was beta marck Past Medical History Past Medical History: Atrial Fibrillation, Asthma, GI Bleed, Hyperlipidemia, Hypertension, Osteoarthritis (OA), Skin Disorder Additional Past Medical History / Comment(s): Hx bronchitis, hx lower GI bleed, hx DIVERTICULITIS, Psoriasis. History of Any Multi-Drug Resistant Organisms: MRSA Date of last positivie culture/infection: 10/20/07 MDRO Source:: L leg Past Surgical History: Hernia Repair, Orthopedic Surgery Additional Past Surgical History / Comment(s): Back pain injections and lumbar spine nerve ablation, colonoscopy, Hieu Fundoplasty, left inguinal hernia repair, left knee debridement of MRSA infection around 2007. Past Anesthesia/Blood Transfusion Reactions: No Reported Reaction Additional Past Anesthesia/Blood Transfusion Reaction / Comment(s): Has never recieved blood. Past Psychological History: Anxiety, Bipolar, Depression Additional Psychological History / Comment(s): States doing very well with all this at this time. Smoking Status: Current some day smoker Past Alcohol Use History: Occasional Additional Past Alcohol Use History / Comment(s): Started smoking in 1995, current some day smoker about 1/2 pack per week. Past Drug Use History: None Reported - Past Family History Father Family Medical History: COPD, Coronary Artery Disease (CAD) Additional Family Medical History / Comment(s): Father at age 49yrs of lung dx. Father was a smoker. Mother Family Medical History: Coronary Artery Disease (CAD), Diabetes Mellitus Additional Family Medical History / Comment(s): Mother at age 63 yrs. Medications and Allergies Home Medications Medication Instructions Recorded Confirmed Type Loratadine [Claritin] 10 mg PO DAILY #10 tab 07/06/17 01/21/22 Rx Budesonide/Formoterol Fumarate 2 puff INHALATION RT-BID PRN 11/12/17 01/21/22 History [Symbicort 160-4.5 Mcg Inhaler] Atorvastatin Calcium [Lipitor] 80 mg PO DAILY 12/15/21 01/21/22 History Famotidine [Pepcid] 20 mg PO DAILY 12/15/21 01/21/22 History Metoprolol Succinate (ER) [Toprol 50 mg PO DAILY 12/15/21 01/21/22 History Xl] Montelukast Sodium [Singulair] 10 mg PO DAILY 12/15/21 01/21/22 History Pantoprazole Sodium [Protonix] 40 mg PO BID 12/15/21 01/21/22 History Sucralfate [Carafate] 1 gm PO QID PRN 12/15/21 01/21/22 History lisinopriL [Zestril] 20 mg PO DAILY 12/15/21 01/21/22 History ALPRAZolam [Xanax] 0.25 mg PO BID PRN 01/21/22 01/21/22 History Allergies Allergy/AdvReac Type Severity Reaction Status Date / Time No Known Allergies Allergy Verified 01/21/22 16:26 Physical Exam Vitals: Vital Signs Temp Pulse Pulse Resp BP BP Pulse Ox 01/22/22 03:05 98.3 F 107 H 18 98/63 96 01/22/22 00:00 98.0 F 113 H 18 109/71 98 01/21/22 22:05 102 H 16 110/84 97 01/21/22 20:38 103 H 16 111/86 98 01/21/22 20:19 112 H 17 115/83 97 01/21/22 20:13 117 H 16 114/94 99 01/21/22 19:04 113 H 18 112/87 98 01/21/22 18:55 131 H 01/21/22 16:24 98.2 F 63 16 147/85 99 Intake and Output 01/21/22 01/21/22 01/22/22 14:59 22:59 06:59 Intake Total 67.029 Balance 67.029 Intake: IV 10 Invasive Line 1 10 Intake, IV Titration 57.029 Amount Heparin Sod,Pork in 0.45% 57.029 NaCl 25,000 unit In 0.45 % NaCl 1 250ml.bag @ 9.59 UNITS/KG/HR 10.005 mls/ hr IV .Q24H [facility] Rx#: [id number] Other: Voiding Method Toilet Weight 104.326 kg 104.326 kg - Constitutional General appearance: no acute distress - Respiratory Respiratory: bilateral: CTA - Cardiovascular Rhythm: irregularly irregular Results 01/22/22 02:57 01/22/22 02:57 Cardiac Enzymes 01/21/22 01/21/22 01/22/22 Range/Units 17:29 17: 00:37 AST 20 (17-59) U/L Troponin I <0.012 <0.012 (0.000-0.034) ng/mL 01/22/22 Range/Units 02:57 AST (17-59) U/L Troponin I <0.012 (0.000-0.034) ng/mL Coagulation 01/21/22 01/22/22 Range/Units 17: 02:57 PT 10.6 10.8 (9.0-12.0) sec APTT 25.8 32.1 H (22.0-30.0) sec CBC 01/21/22 01/22/22 Range/Units 17:29 02:57 WBC 15.1 H 10.1 (3.8-10.6) k/uL RBC 4.71 4.39 (4.30-5.90) m/uL Hgb 15.5 14.3 (13.0-17.5) gm/dL Hct 42.6 40.4 (39.0-53.0) % Plt Count 304 267 (150-450) k/uL Comprehensive Metabolic Panel 01/21/22 01/22/22 Range/Units 17:29 02:57 Sodium 141 140 (137-145) mmol/L Potassium 3.7 3.8 (3.5-5.1) mmol/L Chloride 100 105 (98-107) mmol/L Carbon Dioxide 26 25 (22-30) mmol/L BUN 10 13 (9-20) mg/dL Creatinine 0.71 0.71 (0.66-1.25) mg/dL Glucose 96 119 H (74-99) mg/dL Calcium 9.4 8.7 (8.4-10.2) mg/dL AST 20 (17-59) U/L ALT 22 (4-49) U/L Alkaline Phosphatase 105 (38-126) U/L Total Protein 7.3 (6.3-8.2) g/dL Albumin 4.7 (3.5-5.0) g/dL Current Medications Generic Name Dose Route Start Last Admin Trade Name Freq PRN Reason Stop Dose Admin Hydrocodone Bitart/Acetaminophen 1 each 01/21/22 23:48 01/21/22 23:56 Hydrocodone/Apap 10-325mg 1 Each Tab PO 1 each BID PRN Administration Pain Alprazolam 0.25 mg 01/21/22 22:38 01/21/22 23:56 Alprazolam 0.25 Mg Tab PO 0.25 mg BID PRN Administration Anxiety Apixaban 5 mg 01/22/22 09:00 Apixaban 5 Mg Tab PO BID [facility] Protocol Atorvastatin Calcium 80 mg 01/22/22 09:00 Atorvastatin 80 Mg Tab PO DAILY [facility] Budesonide/Formoterol Fumarate 2 puff 01/21/22 22:38 Symbicort 160-4.5 Mcg Inhaler INHALATION RT-BID PRN Shortness Of Breath Famotidine 20 mg 01/22/22 09:00 Famotidine 20 Mg Tab PO DAILY [facility] Lisinopril 10 mg 01/22/22 09:00 Lisinopril 10 Mg Tab PO DAILY [facility] Metoprolol Succinate 50 mg 01/22/22 09:00 Metoprolol Succinate (Er) 50 Mg Tab.Er.24h PO DAILY [facility] Naloxone HCl 0.2 mg 01/21/22 21:09 Naloxone 0.4 Mg/Ml 1 Ml Vial IV Q2M PRN Opioid Reversal Pantoprazole Sodium 40 mg 01/22/22 07:30 Pantoprazole 40 Mg Tablet PO AC-BID [facility]OS Intake and Output 1001/21/22 01/22/22 14:59 22:59 06:59 Intake Total 67.029 Balance 67.029 Intake: IV 10 Invasive Line 1 10 Intake, IV Titration 57.029 Amount Heparin Sod,Pork in 0.45% 57.029 NaCl 25,000 unit In 0.45 % NaCl 1 250ml.bag @ 9.59 UNITS/KG/HR 10.005 mls/ hr IV .Q24H [facility] Rx#: [id number] Other: Voiding Method Toilet Weight 104.326 kg 104.326 kg Patient Weight 01/22/22 06:59 Weight 104.326 kg 01/22/22 02:57 01/22/22 02:57 Assessment and Plan Assessment: Assessment #1 atrial fibrillation with overall controlled heart rate #2 history of paroxysmal atrial fibrillation #3 hypertension #4 dyslipidemia #5 overweight #6 possible sleep apnea Plan #1 acute coronary event was ruled out #2 rule out severe CAD probably as an outpatient #3 DC heparin IV and start the patient on oral anticoagulation #40 to the current dose of beta marck #5 obtain an echocardiogram
[2022-01-22] MEDS: PANTOPRAZOLE 40 MG TABLET PO SCH ×2 (06:43→16:22)
[2022-01-22] MEDS: FAMOTIDINE 20 MG TAB PO SCH (08:53)
[2022-01-22] MEDS: APIXABAN 5 MG TAB PO SCH ×2 (08:53→20:10)
[2022-01-22] MEDS: METOPROLOL SUCCINATE (ER) 50 MG TAB.ER.24H PO SCH (08:53)
[2022-01-22] MEDS: ATORVASTATIN 80 MG TAB PO SCH (08:53)
[2022-01-22] MEDS ORDERED: lisinopriL 10 MG TAB PO SCH (09:00)
[2022-01-22] MEDS ORDERED: lisinopriL 20 MG TAB PO SCH (09:00)
[2022-01-22] MEDS: HYDROcodone/APAP 10-325MG 1 EACH TAB PO PRN ×2 (11:25→20:10)
[2022-01-22] MEDS: ALPRAZolam 0.25 MG TAB PO PRN ×2 (11:25→20:10)
--- NOTE | 2022-01-22 15:43 | P.HPIM ---
History of Present Illness H&P Date: 01/22/22 Chief Complaint: Chest Pain 51-year-old male, history of Atrial Fibrillation, Asthma, GI Bleed, Hyperlipidemia, Hypertension, Osteoarthritis, who was sent in by his PCP over c oncern for fast heart rate. Patient is a poor historian and cannot recall the names of his medications THE top of his head. Believes one of them is Toprol. Uncertain if he is on blood thinning medication. States some mild chest discomfort but no aaron pain. States it is substernal. Denies shortness of breath, lightheadedness. States he intermittently does have chest discomfort like this. He was found to have a fast heart rate at his normal checkup, and was sent here for further evaluation. Does not follow up with a transfer worker. Denies any fevers, chills, cough. Denies any urinary complaints, abdominal pain, nausea, vomiting, diarrhea. No known sick contacts. Presents for further evaluation of a concern for his fast heart rate. Laboratory studies while patient was in ED shows a leukocytosis of 15 which is likely reactive. Urine is unremarkable. Troponin is undetectable. Remainder of labs are unremarkable. Chest x-ray shows no acute cardio pulmonary process. EKG shows atrial fibrillation with RVR. Patient received 2 doses of 2.5mg IV metoprolol, heart rate did average between 95 and 105. Was loaded with metoprolol; started on heparin drip and is admitted for further evaluation by cardiology. Review of Systems REVIEW OF SYSTEMS: CONSTITUTIONAL: No fever, no malaise, no fatigue. HEENT: No recent visual problems or hearing problems. Denied any sore throat. CARDIOVASCULAR: No chest pain, orthopnea, PND, no palpitations, no syncope. PULMONARY: No shortness of breath, no cough, no hemoptysis. GASTROINTESTINAL: No diarrhea, no nausea, no vomiting, no abdominal pain. NEUROLOGICAL: No headaches, no weakness, no numbness. HEMATOLOGICAL: Denies any bleeding or petechiae. GENITOURINARY: Denies any burning micturition, frequency, or urgency. MUSCULOSKELETAL/RHEUMATOLOGICAL: Denies any joint pain, swelling, or any muscle pain. ENDOCRINE: Denies any polyuria or polydipsia. The rest of the 14-point review of systems is negative. Past Medical History Past Medical History: Atrial Fibrillation, Asthma, GI Bleed, Hyperlipidemia, Hypertension, Osteoarthritis (OA), Skin Disorder Additional Past Medical History / Comment(s): Hx bronchitis, hx lower GI bleed, hx DIVERTICULITIS, Psoriasis. History of Any Multi-Drug Resistant Organisms: MRSA Date of last positivie culture/infection: 10/20/07 MDRO Source:: L leg Past Surgical History: Hernia Repair, Orthopedic Surgery Additional Past Surgical History / Comment(s): Back pain injections and lumbar spine nerve ablation, colonoscopy, Hieu Fundoplasty, left inguinal hernia repair, left knee debridement of MRSA infection around 2007. Past Anesthesia/Blood Transfusion Reactions: No Reported Reaction Additional Past Anesthesia/Blood Transfusion Reaction / Comment(s): Has never recieved blood. Past Psychological History: Anxiety, Bipolar, Depression Additional Psychological History / Comment(s): States doing very well with all this at this time. Smoking Status: Current some day smoker Past Alcohol Use History: Occasional Additional Past Alcohol Use History / Comment(s): Started smoking in 1995, current some day smoker about 1/2 pack per week. Past Drug Use History: None Reported - Past Family History Father Family Medical History: COPD, Coronary Artery Disease (CAD) Additional Family Medical History / Comment(s): Father at age 49yrs of lung dx. Father was a smoker. Mother Family Medical History: Coronary Artery Disease (CAD), Diabetes Mellitus Additional Family Medical History / Comment(s): Mother at age 63 yrs. Medications and Allergies Home Medications Medication Instructions Recorded Confirmed Type Loratadine [Claritin] 10 mg PO DAILY #10 tab 07/06/17 01/21/22 Rx Budesonide/Formoterol Fumarate 2 puff INHALATION RT-BID PRN 11/12/17 01/21/22 History [Symbicort 160-4.5 Mcg Inhaler] Atorvastatin Calcium [Lipitor] 80 mg PO DAILY 12/15/21 01/21/22 History Famotidine [Pepcid] 20 mg PO DAILY 12/15/21 01/21/22 History Metoprolol Succinate (ER) [Toprol 50 mg PO DAILY 12/15/21 01/21/22 History Xl] Montelukast Sodium [Singulair] 10 mg PO DAILY 12/15/21 01/21/22 History Pantoprazole Sodium [Protonix] 40 mg PO BID 12/15/21 01/21/22 History Sucralfate [Carafate] 1 gm PO QID PRN 12/15/21 01/21/22 History lisinopriL [Zestril] 20 mg PO DAILY 12/15/21 01/21/22 History ALPRAZolam [Xanax] 0.25 mg PO BID PRN 01/21/22 01/21/22 History Allergies Allergy/AdvReac Type Severity Reaction Status Date / Time No Known Allergies Allergy Verified 01/21/22 16:26 Physical Exam Vitals: Vital Signs Temp Pulse Pulse Resp BP BP Pulse Ox 01/22/22 03:05 98.3 F 107 H 18 98/63 96 01/22/22 00:00 98.0 F 113 H 18 109/71 98 01/21/22 22:05 102 H 16 110/84 97 01/21/22 20:38 103 H 16 111/86 98 01/21/22 20:19 112 H 17 115/83 97 01/21/22 20:13 117 H 16 114/94 99 01/21/22 19:04 113 H 18 112/87 98 01/21/22 18:55 131 H 01/21/22 16:24 98.2 F 63 16 147/85 99 Intake and Output 01/21/22 01/22/22 01/22/22 22:59 06:59 14:59 Intake Total 67.029 Balance 67.029 Intake: IV 10 Invasive Line 1 10 Intake, IV Titration 57.029 Amount Heparin Sod,Pork in 0.45% 57.029 NaCl 25,000 unit In 0.45 % NaCl 1 250ml.bag @ 9.59 UNITS/KG/HR 10.005 mls/ hr IV .Q24H [facility] Rx#: [id number] Other: Voiding Method Toilet # Voids 3 Weight 104.326 kg 104.326 kg PHYSICAL EXAMINATION: GENERAL: The patient is alert and oriented x3, not in any acute distress. Well developed, well nourished. HEENT: Pupils are round and equally reacting to light. EOMI. No scleral icterus. No conjunctival pallor. Normocephalic, atraumatic. No pharyngeal erythema. No thyromegaly. CARDIOVASCULAR: S1 and S2 present. No murmurs, rubs, or gallops. PULMONARY: Chest is clear to auscultation, no wheezing or crackles. ABDOMEN: Soft, nontender, nondistended, normoactive bowel sounds. No palpable organomegaly. MUSCULOSKELETAL: No joint swelling or deformity. EXTREMITIES: No cyanosis, clubbing, or pedal edema. NEUROLOGICAL: Gross neurological examination did not reveal any focal deficits. SKIN: No rashes. Results CBC & Chem 7: 01/22/22 02:57 01/22/22 02:57 Labs: Abnormal Lab Results - Last 24 Hours (Table) 01/21/22 01/22/22 01/22/22 Range/Units 17:29 02:57 02:57 WBC 15.1 H (3.8-10.6) k/uL Neutrophils # 11.3 H (1.3-7.7) k/uL APTT 32.1 H (22.0-30.0) sec Glucose 119 H (74-99) mg/dL Thrombosis Risk Factor Assmnt - Choose All That Apply Any of the Below Risk Factors Present?: Yes Each Factor Represents 1 point: Age 41-60 years Other Risk Factors: No Other congenital or acquired thrombophilia - If yes, enter type in comment: No Thrombosis Risk Factor Assessment Total Risk Factor Score: 1 Thrombosis Risk Factor Assessment Level: Low Risk Assessment and Plan Assessment: 1. Atrial fibrillation with RVR - Patient does have history of paroxysmal atrial fibrillation - Patient was placed on IV heparin infusion in ED which has been transitioned to oral anticoagulation therapy in form of Ahlquist 5 mg by mouth twice a day for cardiology recommendation - Cardiology recommending rate controlled with beta blockers - 2-D echo is ordered and pending; further recommendations since echo results are available 2. Hypertension; metoprolol 50 mg daily, lisinopril 20 mg daily 3. Hyperlipidemia; Lipitor 80 mg by mouth daily at bedtime 4. Asthma; not in exacerbation we will continue with Symbicort inhaler, Singulair 10 mg daily; Loratadine 10 mg daily 5. Possible sleep apnea/overweight; outpatient evaluation 6. GERD/history of GI bleed; patient remains on PPI and Carafate 1 g 4 times a day when necessary DVT prophylaxis; SCDs/systemic anticoagulation CODE STATUS; full code
[2022-01-23] MEDS: PANTOPRAZOLE 40 MG TABLET PO SCH ×2 (06:38→16:15)
[2022-01-23] MEDS: ATORVASTATIN 80 MG TAB PO SCH (10:03)
[2022-01-23] MEDS: METOPROLOL SUCCINATE (ER) 50 MG TAB.ER.24H PO SCH (10:03)
[2022-01-23] MEDS: MONTELUKAST 10 MG TAB PO SCH (10:03)
[2022-01-23] MEDS: APIXABAN 5 MG TAB PO SCH ×2 (10:03→21:04)
[2022-01-23] MEDS: lisinopriL 5 MG TAB PO SCH (10:03)
[2022-01-23] MEDS: ALPRAZolam 0.25 MG TAB PO PRN ×2 (10:04→21:04)
[2022-01-23] MEDS: HYDROcodone/APAP 10-325MG 1 EACH TAB PO PRN ×2 (10:04→16:15)
[2022-01-23] MEDS: FAMOTIDINE 20 MG TAB PO SCH (10:04)
[2022-01-23] MEDS: LORATADINE 10 MG TAB PO SCH (10:04)
--- NOTE | 2022-01-23 14:49 | P.PN ---
Subjective Progress Note Date: 01/23/22 Principal diagnosis: Paroxysmal atrial fibrillation This is a very pleasant 51-year-old gentleman with a past medical history significant for hypertension and dyslipidemia and paroxysmal atrial fibrillation who was referred to the hospital/emergency department for further evaluation. The patient was having physical examination for an evaluation for a job. He was found to have irregular heart rhythm. For that reason he was sent to the emergency department. An EKG was performed and showed atrial fibrillation. He was admitted for further evaluation and investigation. The patient stated that he has been experiencing intermittent episodes of palpitations/heart racing in termittently. That was associated sometimes with chest discomfort. No shortness of breath and no dizziness or lightheadedness and no feeling of presyncope or syncope. He underwent an investigation here including EKG showing atrial fibrillation with overall controlled heart rate and diffuse nonspecific ST and T wave abnormalities. Also he underwent a blood work came in to be unremarkable into of troponin. He does have hypertension and dyslipidemia as risk factor and definitely he stated that he snored during the night concerning for sleep apnea. He never been tested for sleep apnea. Currently he is in A. fib with controlled heart rate. He is on heparin IV. He is also on AV joanne marck agents was beta marck January [id number] The patient was seen and evaluated and examined this morning. He remains in atrial fibrillation with overall controlled heart rate. Hemodynamically his pressure has been marginal and for that reason going to decrease the dose of lisinopril. Clinically he reports intermittent episodes of chest discomfort with only sitting in the chair. I am concerned about severe CAD given his multiple risk factors including smoking versus the chest discomfort could be related to the atrial fibrillation itself which could be symptomatic. Echo was reviewed and showed normal LV function with no significant valvular abnormalities. There is on that further recommendation to follow. Meanwhile continue oral anticoagulation. Objective - Vital Signs Vital signs: Vital Signs Temp 97.9 F 01/23/22 04:00 Pulse 79 01/23/22 04:00 Resp 16 01/23/22 04:00 BP 98/55 01/23/22 04:00 Pulse Ox 99 01/23/22 04:00 FiO2 Intake & Output 01/22/22 01/22/22 01/23/22 06:59 18:59 06:59 Intake Total 67.029 910 Balance 67.029 910 Weight 104.326 kg Intake: IV 10 20 Invasive Line 1 10 20 Intake, IV Titration 57.029 Amount Heparin Sod,Pork in 0.45% 57.029 NaCl 25,000 unit In 0.45 % NaCl 1 250ml.bag @ 9.59 UNITS/KG/HR 10.005 mls/ hr IV .Q24H [facility] Rx#: [id number] Oral 890 Other: Voiding Method Toilet Toilet Toilet # Voids 3 1 - Constitutional General appearance: Present: no acute distress - Respiratory Respiratory: bilateral: diminished - Cardiovascular Rhythm: irregularly irregular Heart sounds: normal: S1, S2 Abnormal Heart Sounds: Present: systolic murmur - Labs CBC & Chem 7: 01/22/22 02:57 01/22/22 02:57 Assessment and Plan Assessment: Assessment #1 atrial fibrillation with overall controlled heart rate in patient with known paroxysmal atrial fibrillation #2 history of paroxysmal atrial fibrillation #3 hypertension #4 dyslipidemia #5 overweight #6 possible sleep apnea Plan Continue the current medical regimen including oral anticoagulation Preserved left ventricular systolic function on the echocardiogram Further investigation regarding the chest discomfort, differential his symptomatic atrial fibrillation versus severe CAD Rule out severe CAD Consider MACO/cardioversion if the patient remains in atrial fibrillation Follow-up with the patient
--- NOTE | 2022-01-23 17:48 | P.PN ---
Subjective Progress Note Date: 01/23/22 Principal diagnosis: Atrial fibrillation with RVR 51-year-old male, history of Atrial Fibrillation, Asthma, GI Bleed, Hyperlipidemia, Hypertension, Osteoarthritis, who was sent in by his PCP over concern for fast heart rate. Patient is a poor historian and cannot recall the names of his medications THE top of his head. Believes one of them is Toprol. Uncertain if he is on blood thinning medication. States some mild chest discomfort but no aaron pain. States it is substernal. Denies shortness of breath, lightheadedness. States he intermittently does have chest discomfort like this. He was found to have a fast heart rate at his normal checkup, and was sent here for further evaluation. 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 Denies any fevers, chills, cough. Denies any urinary complaints, abdominal pain, nausea, vomiting, diarrhea. No known sick contacts. Presents for further evaluation of a concern for his fast heart rate. Laboratory studies while patient was in ED shows a leukocytosis of 15 which is likely reactive. Urine is unremarkable. Troponin is undetectable. Remainder of labs are unremarkable. Chest x-ray shows no acute cardio pulmonary process. EKG shows atrial fibrillation with RVR. Patient received 2 doses of 2.5mg IV metoprolol, heart rate did average between 95 and 105. Was loaded with metoprolol; started on heparin drip and is admitted for further evaluation by cardiology. 01/23/2022 Patient remains in atrial fibrillation with heart rate in 70s; blood pressure remained soft; cardiology recommending to decrease dose of lisinopril Patient reports often off and on episodes of chest discomfort likely related to atrial fibrillation; echocardiogram is ordered and pending - Cardiology recommending further ischemia testing if patient continues to complain of chest discomfort - Likely MACO/cardioversion if patient remains in atrial fibrillation Objective - Vital Signs Vital signs: Vital Signs Temp 97.9 F 01/23/22 04:00 Pulse 79 01/23/22 04:00 Resp 16 01/23/22 04:00 BP 98/55 01/23/22 04:00 Pulse Ox 99 01/23/22 04:00 FiO2 Intake & Output 01/22/22 01/23/22 01/23/22 18:59 06:59 18:59 Intake Total 910 118 Balance 910 118 Intake: IV 20 Invasive Line 1 20 Oral 890 118 Other: Voiding Method Toilet Toilet # Voids 1 - Exam PHYSICAL EXAMINATION: GENERAL: The patient is alert and oriented x3, not in any acute distress. Well developed, well nourished. HEENT: Pupils are round and equally reacting to light. EOMI. No scleral icterus. No conjunctival pallor. Normocephalic, atraumatic. No pharyngeal erythema. No thyromegaly. CARDIOVASCULAR: S1 and S2 present. No murmurs, rubs, or gallops. PULMONARY: Chest is clear to auscultation, no wheezing or crackles. ABDOMEN: Soft, nontender, nondistended, normoactive bowel sounds. No palpable organomegaly. MUSCULOSKELETAL: No joint swelling or deformity. EXTREMITIES: No cyanosis, clubbing, or pedal edema. NEUROLOGICAL: Gross neurological examination did not reveal any focal deficits. SKIN: No rashes. - Labs CBC & Chem 7: 01/22/22 02:57 01/22/22 02:57 Assessment and Plan Assessment: 1. Atrial fibrillation with RVR - Patient does have history of paroxysmal atrial fibrillation - Patient was placed on IV heparin infusion in ED which has been transitioned to oral anticoagulation therapy in form of Ahlquist 5 mg by mouth twice a day for cardiology recommendation - Cardiology recommending rate controlled with beta blockers - 2-D echo is ordered and pending; further recommendations since echo results are available 2. Hypertension; metoprolol 50 mg daily, lisinopril 20 mg daily 3. Hyperlipidemia; Lipitor 80 mg by mouth daily at bedtime 4. Asthma; not in exacerbation we will continue with Symbicort inhaler, Singulair 10 mg daily; Loratadine 10 mg daily 5. Possible sleep apnea/overweight; outpatient evaluation 6. GERD/history of GI bleed; patient remains on PPI and Carafate 1 g 4 times a day when necessary DVT prophylaxis; SCDs/systemic anticoagulation CODE STATUS; full code
[2022-01-24] MEDS: PANTOPRAZOLE 40 MG TABLET PO SCH ×2 (05:28→17:01)
[2022-01-24] MEDS: ALPRAZolam 0.25 MG TAB PO PRN ×2 (05:28→22:42)
[2022-01-24] MEDS: HYDROcodone/APAP 10-325MG 1 EACH TAB PO PRN ×2 (05:28→22:42)
[2022-01-24 05:47] LABS: Glucose,Whole Blood 112 mg/dL (70-110)
[2022-01-24] MEDS: FAMOTIDINE 20 MG TAB PO SCH (08:27)
[2022-01-24] MEDS: lisinopriL 5 MG TAB PO SCH (08:27)
[2022-01-24] MEDS: METOPROLOL SUCCINATE (ER) 50 MG TAB.ER.24H PO SCH (08:27)
[2022-01-24] MEDS: ATORVASTATIN 80 MG TAB PO SCH (08:27)
[2022-01-24] MEDS: LORATADINE 10 MG TAB PO SCH (08:27)
[2022-01-24] MEDS: MONTELUKAST 10 MG TAB PO SCH (08:27)
[2022-01-24] MEDS: APIXABAN 5 MG TAB PO SCH ×2 (08:27→19:49)
--- NOTE | 2022-01-24 09:31 | P.PN ---
Subjective Progress Note Date: 01/24/22 PROGRESS NOTE The patient is a 51-year-old male who presented with atrial fibrillation, palpitations and dyspnea. His LV systolic function was normal by echocardiography. He continues to be in atrial fibrillation with controlled ventricular response. He continues to have some dyspnea and palpitations. He denies any PND nor orthopnea. Medications: Lipitor 80 mg daily, lisinopril 5 mg daily, metoprolol succinate 50 mg daily, Singulair, Eliquis 5 mg twice a day PHYSICAL EXAMINATION: Blood pressure 116/70 heart rate 115 LUNGS: Clear to auscultation HEART: Irregular rate and rhythm, S1, S2. No S3. No systolic murmur ABDOMEN: Soft, nontender, no organomegaly EXTREMETIES: No edema LAB: Troponin less than 0.012 IMPRESSION: 1. Atrial fibrillation, anticoagulation started 2. History of hypertension 3. History of hyperlipidemia 4. Prior history of paroxysmal atrial fibrillation PLAN: 1. MACO guided cardioversion today by Dr. Hammonds, risks and the complications were discussed with the patient 2. Continue anticoagulation 3. Follow blood pressure 4. May require further workup as an outpatient depending on his progress. Objective - Vital Signs Vital signs: Vital Signs Temp 97.8 F 01/24/22 08:00 Pulse 65 01/24/22 08:00 Resp 18 01/24/22 08:00 BP 98/62 01/24/22 08:00 Pulse Ox 98 01/24/22 08:00 FiO2 Intake & Output 01/23/22 01/24/22 01/24/22 18:59 06:59 18:59 Intake Total 868 Balance 868 Intake: Oral 868 Other: Voiding Method Toilet Toilet # Voids 2 - Labs CBC & Chem 7: 01/22/22 02:57 01/22/22 02:57 Labs: Abnormal Lab Results - Last 24 Hours (Table) 01/24/22 Range/Units 05:45 POC Glucose (mg/dL) 112 H (70-110) mg/dL
--- NOTE | 2022-01-24 10:13 | CA ---
Transthoracic Echo Report Name: Derik Moran Age: 51 Gender: M : 1970 Exam Date: 01/22/2022 10:49 Exam Location: [facility] Ht (in): 67 Wt (lb): 230 Ordering Physician: Stephen Hammonds MD ([id number]) Attending/Referring Phys: Computational Theory Scientist Bertha Disla RDCS Procedure CPT: Indications: Hx Afib Cardiac Hx: Technical Quality: Fair Contrast 1: Total Dose (mL): Contrast 2: Total Dose (mL): MEASUREMENTS (Male / Female) Normal Values 2D ECHO LV Diastolic Diameter PLAX 4.5 cm 4.2 - 5.9 / 3.9 - 5.3 cm LV Systolic Diameter PLAX 2.5 cm IVS Diastolic Thickness 1.1 cm 0.6 - 1.0 / 0.6 - 0.9 cm LVPW Diastolic Thickness 1.4 cm 0.6 - 1.0 / 0.6 - 0.9 cm LV Relative Wall Thickness 0.6 RV Internal Dim ED PLAX 3.5 cm LA Volume 77.2 cm??? 18 - 58 / 22 - 52 cm??? M-MODE Aortic Root Diameter MM 3.3 cm LA Systolic Diameter MM 5.3 cm LA Ao Ratio MM 1.6 AV Cusp Separation MM 2.4 cm DOPPLER AV Peak Velocity 137.3 cm/s AV Peak Gradient 7.5 mmHg LVOT Peak Velocity 78.0 cm/s LVOT Peak Gradient 2.4 mmHg MV Area PHT 3.6 cm??? Mitral E Point Velocity 104.1 cm/s Mitral A Point Velocity 0.3 cm/s Mitral E to A Ratio 397.6 MV Deceleration Time 212.6 ms MV E' Velocity 8.6 cm/s Mitral E to MV E' Ratio 12.0 TR Peak Velocity 205.4 cm/s TR Peak Gradient 16.9 mmHg Right Ventricular Systolic Press 21.7 mmHg FINDINGS Left Ventricle Mildly increased left ventricular wall thickness. Normal left ventricular systolic function with no obvious regional wall motion abnormalities. Left ventricular ejection fraction is estimated at 50-55 %. Right Ventricle Mild right ventricular dilatation. Right ventricular systolic pressure within normal limits. Right Atrium Normal right atrial size. Left Atrium Moderately increased left atrial volume. Mitral Valve Structurally normal mitral valve. Mild mitral annular calcification. Mild-to- moderate mitral regurgitation. Aortic Valve No aortic valve stenosis or regurgitation. Tricuspid Valve Mild tricuspid regurgitation. Pulmonic Valve Trace pulmonic regurgitation. Pericardium No pericardial effusion. Aorta Normal size aortic root and proximal ascending aorta. CONCLUSIONS Normal biventricular dimension and systolic function [id number]-jj-[id number] mitral regurgitation Previewed by: Dr. Stephen Hammonds MD (Electronically Signed) Final Date: 23 January 2022 10:12
[2022-01-24] MEDS ORDERED: LACTATED RINGERS 1,000 ML IV ONE ×2 (11:05→11:11)
--- NOTE | 2022-01-24 12:06 | P.PN ---
Subjective 51-year-old male, history of Atrial Fibrillation, Asthma, GI Bleed, Hyperlipidemia, Hypertension, Osteoarthritis, who was sent in by his PCP over c oncern for fast heart rate. Patient is a poor historian and cannot recall the names of his medications THE top of his head. Believes one of them is Toprol. Uncertain if he is on blood thinning medication. States some mild chest discomfort but no aaron pain. States it is substernal. Denies shortness of breath, lightheadedness. States he intermittently does have chest discomfort like this. He was found to have a fast heart rate at his normal checkup, and was sent here for further evaluation. Does not follow up with a seal mixer. Denies any fevers, chills, cough. Denies any urinary complaints, abdominal pain, nausea, vomiting, diarrhea. No known sick contacts. Presents for further evaluation of a concern for his fast heart rate. Laboratory studies while patient was in ED shows a leukocytosis of 15 which is likely reactive. Urine is unremarkable. Troponin is undetectable. Remainder of labs are unremarkable. Chest x-ray shows no acute cardio pulmonary process. EKG shows atrial fibrillation with RVR. Patient received 2 doses of 2.5mg IV metoprolol, heart rate did average between 95 and 105. Was loaded with metoprolol; started on heparin drip and is admitted for further evaluation by cardiology. 01/23/2022 Patient remains in atrial fibrillation with heart rate in 70s; blood pressure remained soft; cardiology recommending to decrease dose of lisinopril Patient reports often off and on episodes of chest discomfort likely related to atrial fibrillation; echocardiogram is ordered and pending - Cardiology recommending further ischemia testing if patient continues to complain of chest discomfort - Likely MACO/cardioversion if patient remains in atrial fibrillation 01/24/2022 Patient still complained from chest pressure this morning about 5-6/10 in severity No other new complaints Remains on eliquis anticoagulation and metoprolol 50 mg which is a home dose Echocardiogram showing ejection fraction of 50-55% with tonm-di-[place] mitral regurgitation Plan for possible cardioversion MACO by seal mixer Objective - Vital Signs Vital signs: Vital Signs Temp 97.8 F 01/24/22 08:00 Pulse 65 01/24/22 08:00 Resp 18 01/24/22 08:00 BP 98/62 01/24/22 08:00 Pulse Ox 98 01/24/22 08:00 FiO2 Intake & Output 01/23/22 01/24/22 01/24/22 18:59 06:59 18:59 Intake Total 868 Balance 868 Intake: Oral 868 Other: Voiding Method Toilet Toilet # Voids 2 - Exam GENERAL: The patient is alert and oriented x3, not in any acute distress. Well developed, well nourished. HEENT: Pupils are round and equally reacting to light. EOMI. No scleral icterus. No conjunctival pallor. Normocephalic, atraumatic. No pharyngeal erythema. No thyromegaly. CARDIOVASCULAR: S1 and S2 present. No murmurs, rubs, or gallops. PULMONARY: Chest is clear to auscultation, no wheezing or crackles. ABDOMEN: Soft, nontender, nondistended, normoactive bowel sounds. No palpable organomegaly. MUSCULOSKELETAL: No joint swelling or deformity. EXTREMITIES: No cyanosis, clubbing, or pedal edema. NEUROLOGICAL: Gross neurological examination did not reveal any focal deficits. SKIN: No rashes. no petechiae. - Labs CBC & Chem 7: 01/22/22 02:57 01/22/22 02:57 Labs: Abnormal Lab Results - Last 24 Hours (Table) 01/24/22 Range/Units 05:45 POC Glucose (mg/dL) 112 H (70-110) mg/dL Assessment and Plan Assessment: 1. Atrial fibrillation with RVR -Continue with metoprolol and liquids -Cardiology on the case with the plan for MACO 2. Hypertension; metoprolol 50 mg daily, lisinopril 20 mg daily 3. Hyperlipidemia; Lipitor 80 mg by mouth daily at bedtime 4. Asthma; not in exacerbation we will continue with Symbicort inhaler, Singulair 10 mg daily; Loratadine 10 mg daily 5. Possible sleep apnea/overweight; outpatient evaluation 6. GERD/history of GI bleed; patient remains on PPI and Carafate 1 g 4 times a day when necessary DVT prophylaxis; SCDs/systemic anticoagulion
[2022-01-24] MEDS ORDERED: LIDOCAINE 2% INJ 20 MG/ML (2 ML VIAL) ONE (12:26)
[2022-01-24] MEDS ORDERED: PROPOFOL 10 MG/ML 20 ML VIAL IV ONE (12:26)
--- NOTE | 2022-01-24 12:38 | P.PCN ---
Date of Procedure: 01/24/22 Operative Findings: TRANSESOPHAGEAL ECHOCARDIOGRAM FARMER GENERAL: JEANNE PROCTOR MD, RPVI INDICATION: Rule out left atrial appendage thrombus and intracardiac thrombus before cardioversion SEDATION: Conscious sedation COMPLICATION: None LEVEL OF SEDATION The patient was sedated using propofol with WIRE PRODUCTS INSPECTOR PROCEDURE DESCRIPTION: After obtaining an informed consent, the patient was brought to recovery room. Pulse oximetry and heart monitors were attached to the patient. The patient throat was sprayed using lidocaine. The patient was turned into left lateral position. After that a bite guard was placed. After an appropriate sedation was initiated, the transesophageal echocardiogram was advanced through a bite guard into the mid esophagus. A 2-D echocardiogram images, color Doppler images, continuous wave images, pulse-wave images, of various cardiac structure were performed. After that the transesophageal echocardiogram probe was advanced into the stomach and fixed to obtain transgastric view was. The probe was brought into the mid esophagus. Inter-atrial septum was interrogated using 2D images, color Doppler images, and then contrast study. After that transesophageal echocardiogram was withdrawn out and upon withdrawing the descending thoracic aorta all the way up to the arch was evaluated. FINDING: Left ventricular dimension appeared to be within normal limits. The left ventricular systolic function is mildly impaired with EF between 45-50%. The right ventricle is of normal size and function with the left atrium appeared to be severely dilated. Left atrial appendage appeared to be free from any thrombus. The aortic valve is trileaflet valve without stenosis or regurgitation B the mitral valve seems to be normal was mild to moderate MR. Normal tricuspid valve and pulmonic valve. No evidence of pericardial effusion seen. CONCLUSION: 1. Intact left atrial appendage with no evidence of thrombus. Intact interatrial septum 2. Severe left atrial dilatation 3. Vtxt-oh-ngigcyxn mitral regurgitation 4. Mildly impaired LV function was EF between 45-50% 5. Normal right ventricular dimension and systolic function 6. No evidence of pericardial effusion
--- NOTE | 2022-01-24 12:39 | P.PCN ---
Date of Procedure: 01/24/22 Operative Findings: Cardioversion Report Performing physician Stephen Hammonds M.D. Procedure performed Successful cardioversion of atrial fibrillation to normal sinus mechanism using 200 J at first attempt Indication Symptomatic atrial fibrillation Complication None Level of sedation The procedure was performed under deep sedation using propofol with VINE FRUIT FARMING SUPERVISOR in the room Procedure description After obtaining an informed consent the patient was brought to the recovery room. Sedation was introduced using propofol with VINE FRUIT FARMING SUPERVISOR in the room. Subsequently the patient cardioverted from atrial fibrillation to normal sinus mechanism using 200 J and first attempt Conclusion Successful cardioversion of atrial fibrillation to normal sinus mechanism using 200 J Postprocedure management Continue the current medical regimen Continue oral anticoagulation Follow-up with the patient
[2022-01-25] MEDS: PANTOPRAZOLE 40 MG TABLET PO SCH (06:25)
[2022-01-25] MEDS: FAMOTIDINE 20 MG TAB PO SCH (08:41)
[2022-01-25] MEDS: LORATADINE 10 MG TAB PO SCH (08:41)
[2022-01-25] MEDS: APIXABAN 5 MG TAB PO SCH (08:41)
[2022-01-25] MEDS: ALPRAZolam 0.25 MG TAB PO PRN (08:41)
[2022-01-25] MEDS: ATORVASTATIN 80 MG TAB PO SCH (08:41)
[2022-01-25] MEDS: METOPROLOL SUCCINATE (ER) 50 MG TAB.ER.24H PO SCH (08:42)
[2022-01-25] MEDS: MONTELUKAST 10 MG TAB PO SCH (08:42)
[2022-01-25] MEDS: lisinopriL 5 MG TAB PO SCH (08:42)
[2022-01-25] MEDS: HYDROcodone/APAP 10-325MG 1 EACH TAB PO PRN (08:42)
[2022-01-25 08:47] VITALS: TEMP 98.1
[2022-01-25 12:02] VITALS: BP 116/75; PULSE 71; RESP 18
--- NOTE | 2022-01-25 13:25 | P.PN ---
Subjective Progress Note Date: 01/25/22 HISTORY OF PRESENT ILLNESS: This is a 51-year-old male who underwent MACO and cardioversion yesterday with Dr. Armstrong. Patient is maintaining sinus mechanism this morning. Vital signs are stable. He denies chest pain or pressure. He denies shortness of breath. PHYSICAL EXAM: VITAL SIGNS: Reviewed. GENERAL: Well-developed in no acute distress. NECK: Supple. No JVD or thyromegaly LUNGS: Respirations even and unlabored. Lungs essentially clear to auscultation bilaterally. HEART: Regular rate and rhythm. S1 and S2 heard. EXTREMITIES: Normal range of motion. No clubbing or cyanosis. Peripheral pulses intact. No lower extremity edema ASSESSMENT: Persistent atrial fibrillation, status post MACO and cardioversion Hypertension Hyperlipidemia PLAN: Continue current cardiac medications Patient is stable for discharge home today from a cardiac standpoint Patient to follow up on an outpatient basis Nurse practitioner note has been reviewed by physician. Signing provider agrees with the documented findings, assessment, and plan of care. Objective - Vital Signs Vital signs: Vital Signs Temp 98.1 F 01/25/22 08:00 Pulse 71 01/25/22 11:57 Resp 18 01/25/22 11:57 BP 116/75 01/25/22 11:57 Pulse Ox 99 01/25/22 11:57 FiO2 Intake & Output 01/24/22 01/25/22 01/25/22 18:59 06:59 18:59 Intake Total 0 180 Balance 0 180 Intake: IV 0 Oral 180 Other: Voiding Method Toilet Toilet # Voids 1 2 - Labs CBC & Chem 7: 01/22/22 02:57 01/22/22 02:57
== END 2022-01-25 15:35 | disposition home or self-care (01) | DRG 310 ==
LOC: EC 16:16 → 3SCARD 21:10
PROVIDERS: ADMIT Hospitalist; ATTEND Hospitalist
PROC: B246ZZ4 Ultrasonography of Right and Left Heart, Transesophageal (ICD-10-PCS; 2022-01-24)
PROC: 5A2204Z Restoration of Cardiac Rhythm, Single (ICD-10-PCS; principal; 2022-01-24 13:00)
DX: I48.19 Other persistent atrial fibrillation (principal); D72.829 Elevated white blood cell count, unspecified; E66.3 Overweight; E78.5 Hyperlipidemia, unspecified; I10 Essential (primary) hypertension; F17.210 Nicotine dependence, cigarettes, uncomplicated; I08.1 Rheumatic disorders of both mitral and tricuspid valves; J40 Bronchitis, not specified as acute or chronic; L40.9 Psoriasis, unspecified; M19.90 Unspecified osteoarthritis, unspecified site; I37.1 Nonrheumatic pulmonary valve insufficiency; F31.9 Bipolar disorder, unspecified; F41.9 Anxiety disorder, unspecified; J45.909 Unspecified asthma, uncomplicated; K21.9 Gastro-esophageal reflux disease without esophagitis; Z79.51 Long term (current) use of inhaled steroids; Z79.899 Other long term (current) drug therapy; Z86.14 Personal history of Methicillin resistant Staphylococcus aureus infection; Z68.36 Body mass index [BMI] 36.0-36.9, adult; Z82.49 Family history of ischemic heart disease and other diseases of the circulatory system; Z87.19 Personal history of other diseases of the digestive system
CPT/HCPCS: 36415; 71046; 80048; 80053; 81003; 83735; 84484; 85025; 85610; 85730; 92960; 93005; 93306; 93312; 93320; 93325; 96374; 96375; 99285

== ENCOUNTER → 2022-08-25 | Outpatient (CLI) | payer OTHER ==
[~2022-08-25] MED LIST changes: -LACTATED RINGERS 1,000 ML IV SCH; +REGADENOSON 0.4 MG/5 ML SYRINGE IV PRN
--- NOTE | 2022-08-25 11:16 | CA ---
Lexiscan Nuclear Stress Test Report Name: Derik Moran Exam Date: 08/25/2022 10:04 Exam Location: [facility] Ht (in): 66 Wt (lb): 230 BSA: 2.12 Ordering Phys: Stephen Hammonds MD Referring Phys: ESTHELA,, Technologist: Markus Scott Age: 51 Gender: M : 1970 Procedure CPT: Indications: R07.9 CHEST PAIN, UNSPECIFIED ICD-10 Codes: Patient History: CHEST PAIN, DIFFICULTY IN BREATHING, PALPITATIONS, NUMBNESS IN FACE/NECK, HTN, ELEVATED CHOLESTEROL LEVELS, FAMILY HX OF HEART DISEASE, CURRENT SMOKER 0.25 PPD X 20 YEARS, ASTHMAS Medications: Meds past 24 hrs: Pretest Chest Pain: STRESS TEST Lexiscan Protocol Exercise Duration (min:sec): 01:[address] Depressions (mm): Angina Score: Rodriguez Score: Resting HR (bpm): 94 Peak HR (bpm): 134 Resting BP (mmHg): 114 / 79 Peak BP (mmHg): 125 / 78 MPHR: 171 Target HR: 145 % MPHR: 78 METS: 1.0 Total Dose: Peak Dose: Atropine: Double Product: 46496 BP Response: Stress Termination: INFUSION COMPLETE Stress Symptoms: HEADACHE,DIFFICULTY IN BREATHING Stress Summary: ECG ANALYSIS Resting ECG: Atrial fibrillation with nonspecific ST-T wave changes Stress ECG: Patient received Lexiscan as a protocol did not have chest pain or diagnostic ST segment depression CONCLUSIONS Negative stress test by EKG criteria Cardiolite portion of the stress test will be reported separately Dr. Dimitri Kyle MD (Electronically Signed) Final Date: 25 August 2022 11:15
--- NOTE | 2022-08-25 16:30 | NM ---
EXAMINATION TYPE: NM stress lexiscan cardiolite DATE OF EXAM: 08/25/2022 COMPARISON: NONE CLINICAL INDICATION: Male, 51 years old with history of R07.9 CHEST PAIN, UNSPECIFIED; TECHNIQUE: After the intravenous administration of 10.1 mCi Tc 99m Sestamibi - Cardiolite resting SP ECT images acquired 82 minutes post injection. The patient received 0.4mg Lexiscan, 26 mCi Tc 99m Sestamibi - Stress images obtained 30 minutes post injection FINDINGS: Review of stress and rest SPECT images demonstrates a fixed perfusion defect along the inferolateral wall which accentuates along the mid to apical wall on stress images. Additional diminished perfusion along the mid to basal anteroseptal wall which appears to be a fixed defect either related to prior infarct or attenuation artifact. Gated analysis shows possible slight anteroseptal wall dyskinesis as well as limited augmentation of the inferolateral wall. Estimated left ventricular ejection fraction is diminished at 40 %. TID is upper limits of normal at 1.10. IMPRESSION: 1. Diminished LVEF of 40%. 2. Possible old infarct involving the inferolateral wall versus prominent diaphragmatic attenuation a rtifact. Unable to exclude some reversibility/gurinder-infarct ischemia along the apical inferolateral wa ll. 3. Also, possible old infarct mid to basal anteroseptal wall.
== END | disposition home or self-care (01) ==
LOC: RADNMMAIN 07:45
PROVIDERS: ATTEND Internal Medicine Interventional Cardiology
DX: R07.9 Chest pain, unspecified (principal)
CPT/HCPCS: 93017; 78452; A9500; J2785

== ENCOUNTER → 2022-09-09 | Outpatient (CLI) | payer OTHER ==
[2022-09-09 15:42] LABS: HCT 44.4 % (39.6-50.0); HGB 15.5 d/dL (12.0-15.0); MCH 32.9 pg (27.0-32.0); MCHC 34.9 d/dL (32.0-37.0); MCV 94.3 FL (80.0-97.0); Mean Platelet Volume 10.9 FL (9.5-12.2); NRBC Per 100 WBC 0 X 10*3/uL (0.00-0.01); Platelet Count 310 X 10*3/uL (140-440); RBC 4.71 X 10*6/uL (4.40-5.60); RDW 12.4 % (11.5-14.5); WBC 11.85 X 10*3/uL (4.50-10.00)
[2022-09-09 15:57] LABS: Blood Urea Nitrogen 14.9 mg/dL (9.0-27.0); Carbon Dioxide 26.4 mmol/L (21.6-31.8); Chloride 104 mmol/L (96-109); Potassium 4.6 mmol/L (3.5-5.5); Sodium 141 mmol/L (135-145)
== END | disposition home or self-care (01) ==
LOC: LABPAT 10:47
PROVIDERS: ATTEND Internal Medicine Interventional Cardiology
DX: Z01.812 Encounter for preprocedural laboratory examination (principal); R07.9 Chest pain, unspecified
CPT/HCPCS: 80051; 82565; 84520; 85027

== ENCOUNTER 2022-09-26 07:15 | Day surgery (SDC) | payer OTHER ==
[~2022-09-26 07:15] MED LIST changes: +ALPRAZolam 0.25 MG TAB PO PRN; +ALPRAZolam 0.5 MG TAB PO PRN; +ASPIRIN 325 MG TAB PO STA; +ATORVASTATIN 80 MG TAB PO STA; +HEPARIN SODIUM,PORCINE 10,000 UNIT in SODIUM CHLORIDE 0.9% 1,000 ML IRRIGATION PRN; +HEPARIN SODIUM,PORCINE 2,500 UNIT in SODIUM CHLORIDE 0.9% 250 ML IRRIGATION PRN; +NITROGLYCERIN SL TABS 0.4 MG TAB SUBLINGUAL PRN; -REGADENOSON 0.4 MG/5 ML SYRINGE IV PRN; +SODIUM CHLORIDE 0.9% 1,000 ML in EMPTY BAG 1 BAG IV SCH
[2022-09-26 07:57] VITALS: TEMP 97.9
[2022-09-26] MEDS ORDERED: SODIUM CHLORIDE 0.9% 1,000 ML IV ONE (08:34)
[2022-09-26] MEDS ORDERED: HEPARIN SODIUM 1,000 UN/ML (10ML VL) ONE (08:50)
[2022-09-26] MEDS ORDERED: VERAPAMIL 2.5 MG/ML 2 ML AMP ONE (08:50)
[2022-09-26] MEDS ORDERED: MIDAZOLAM 2 MG/2 ML VIAL IV ONE (09:10)
[2022-09-26] MEDS ORDERED: LIDOCAINE 1% INJ 10MG/ML (5 ML VIAL-PF) SQ ONE (09:11)
[2022-09-26] MEDS ORDERED: VERAPAMIL SYRINGE (5 MG/10 ML) INTRAARTER ONE (09:14)
[2022-09-26] MEDS ORDERED: fentaNYL (PF) 50 MCG/ML 2 ML AMP ONE (09:19)
[2022-09-26] MEDS ORDERED: fentaNYL (PF) 50 MCG/1 ML VIAL IV ONE ×2 (09:21)
[2022-09-26] MEDS ORDERED: IOPAMIDOL-370 125ML BTL INJ ONE (09:24)
[2022-09-26] MEDS ORDERED: RX INFO: IV CONTRAST WAS GIVEN 1 EACH MISC MISCELLANE PRN (09:28)
[2022-09-26] MEDS ORDERED: SODIUM CHLORIDE 0.9% 1,000 ML IV SCH (09:30)
--- NOTE | 2022-09-26 09:34 | P.PCN ---
Date of Procedure: 09/26/22 Operative Findings: CARDIAC CATHETERIZATION PERFORMING PHYSICIAN: Stephen Hammonds MD, RPVI PROCEDURE PERFORMED: 1. Selective right and left coronary angiogram 2. Left heart catheterization 3. Ultrasound-guided access of the right radial artery INDICATION: Atrial fibrillation and abnormal myocardial perfusion imaging stress test COMPLICATION: None APPROACH: Right radial artery LEVEL OF SEDATION: Moderate with a sedation length of 13 minutes PROCEDURE DESCRIPTION: After obtaining an informed consent, the patient was brought to cardiac home performance laborer. Local anesthesia was performed using lidocaine subcutaneously. The right radial artery was cannulated using Seldinger technique, the guidewire passed easily, following that we advanced a 5-Azerbaijani sheath dilator assembly, the wire and dilator were removed and sheath was flushed. Following that, 2 mg of verapamil along with 5000 unit heparin were given. Selective right and left coronary angiogram using a 6-Azerbaijani JR4 and JL 3.5 catheters. Following that we did left heart catheterization using 6-Azerbaijani pigtail catheter. The procedure was completed there was no complication. SELECTIVE CORONARY ANGIOGRAM: The right coronary artery: Large caliber vessel and a dominant vessel. Its angiographically normal. Left main: It is normal. Bifurcates into an ulcer next and LAD The left circumflex: Large caliber vessel nondominant vessel appears to be angiographically normal. Gives rises into an OM1 and OM 2 and the appears to be angiographically normal The left anterior descending artery: Is angiographically normal. Does reach the apex. HEMODYNAMICS: The LVEDP was 6 mmHg was no significant gradient across aortic valve CONCLUSION: 1. Normal coronary angiogram 2. Normal left-sided filling pressure POSTPROCEDURE MANAGEMENT: Medical treatment
[2022-09-26 17:47] VITALS: RESP 16
[2022-09-26 17:50] VITALS: BP 99/63; PULSE 94
== END 2022-09-26 13:07 | disposition home or self-care (01) ==
LOC: CATHCVL 07:15
PROVIDERS: ATTEND Internal Medicine Interventional Cardiology
DX: I48.91 Unspecified atrial fibrillation (principal); I10 Essential (primary) hypertension; E78.5 Hyperlipidemia, unspecified; F17.210 Nicotine dependence, cigarettes, uncomplicated; Z79.82 Long term (current) use of aspirin; Z79.01 Long term (current) use of anticoagulants; Z79.899 Other long term (current) drug therapy
CPT/HCPCS: 93458; 76937; C1769; C1894; J2250; J2001; J3010 ×2; J1644; Q9967

== ENCOUNTER 2022-10-03 14:08 | Emergency (ER) | payer OTHER ==
[2022-10-03 14:18] VITALS: BP 109/79; PULSE 107; RESP 22
--- NOTE | 2022-10-03 14:28 | ED ---
Chest Pain HPI - General Chief Complaint: Chest Pain Stated Complaint: chest pain Time Seen by Provider: 10/03/22 14:15 Source: EMS Mode of arrival: EMS Limitations: no limitations - History of Present Illness Initial Comments: 52-year-old male with past history of A. fib, hypertension, hyperlipidemia who presents to the emergency room with chest pain. States that he had an episode of chest pain last night which went away. The pain then recurred this morning. Started approximately 1.5 hours ago. Has associated shortness of breath. EMS picked the patient up and found that he was in A. fib with RVR. He admits that he did take his morning medications. He was given nitro in the ambulance with a headache however he did improve his chest pain. Patient recently had a heart cath last week but states he did not know the results of it. He follows up with his loan secretary this Monday. No other alleviating, precipitating or modifying factors - Related Data Home Medications Medication Instructions Recorded Confirmed Budesonide/Formoterol Fumarate 2 puff INHALATION RT-BID PRN 11/12/17 09/21/22 [Symbicort 160-4.5 Mcg Inhaler] Atorvastatin Calcium [Lipitor] 80 mg PO DAILY 12/15/21 09/26/22 Famotidine [Pepcid] 20 mg PO DAILY 12/15/21 09/26/22 Metoprolol Succinate (ER) [Toprol 50 mg PO DAILY 12/15/21 09/26/22 XL] Montelukast Sodium [Singulair] 10 mg PO DAILY 12/15/21 09/21/22 Pantoprazole Sodium [Protonix] 40 mg PO BID 12/15/21 09/21/22 Sucralfate [Carafate] 1 gm PO QID PRN 12/15/21 09/21/22 ALPRAZolam [Xanax] 0.25 mg PO BID PRN 01/21/22 09/26/22 Amiodarone [Cordarone] 200 mg PO DAILY 07/28/22 09/26/22 Previous Rx's Medication Instructions Recorded Loratadine [Claritin] 10 mg PO DAILY #10 tab 07/06/17 Apixaban [Eliquis] 5 mg PO BID #60 tab 01/25/22 lisinopriL [Zestril] 5 mg PO DAILY #30 tab 01/25/22 Allergies Allergy/AdvReac Type Severity Reaction Status Date / Time No Known Allergies Allergy Verified 09/21/22 10:03 Review of Systems ROS Statement: Those systems with pertinent positive or pertinent negative responses have been documented in the HPI. ROS Other: All systems not noted in ROS Statement are negative. Past Medical History Past Medical History: Atrial Fibrillation, Asthma, Chest Pain / Angina, GERD/Reflux, GI Bleed, Hyperlipidemia, Hypertension, Osteoarthritis (OA), Skin Disorder Additional Past Medical History / Comment(s): Hx bronchitis, hx lower GI bleed, hx DIVERTICULITIS, Psoriasis. recent stress test History of Any Multi-Drug Resistant Organisms: MRSA Date of last positivie culture/infection: 10/20/07 MDRO Source:: L leg Past Surgical History: Hernia Repair, Orthopedic Surgery Additional Past Surgical History / Comment(s): Back pain injections and lumbar spine nerve ablation, colonoscopy, Hieu Fundoplasty, left inguinal hernia repair, left knee debridement of MRSA infection around 2007. recent cardioversion Past Anesthesia/Blood Transfusion Reactions: No Reported Reaction Additional Past Anesthesia/Blood Transfusion Reaction / Comment(s): Has never received blood. Past Psychological History: Anxiety, Bipolar, Depression Smoking Status: Current some day smoker - Past Family History Mother Family Medical History: Coronary Artery Disease (CAD), Diabetes Mellitus Additional Family Medical History / Comment(s): Mother at age 63 yrs. General Exam Limitations: no limitations General appearance: alert, in no apparent distress Head exam: Present: atraumatic, normocephalic, normal inspection Eye exam: Present: normal appearance, PERRL, EOMI. Absent: scleral icterus, conjunctival injection, periorbital swelling ENT exam: Present: normal exam, mucous membranes moist Neck exam: Present: normal inspection. Absent: tenderness, meningismus, lymphadenopathy Respiratory exam: Present: normal lung sounds bilaterally. Absent: respiratory distress, wheezes, rales, rhonchi, stridor Cardiovascular Exam: Present: regular rate, irregular rhythm, normal heart sounds. Absent: systolic murmur, diastolic murmur, rubs, gallop, clicks GI/Abdominal exam: Present: soft, normal bowel sounds. Absent: distended, tenderness, guarding, rebound, rigid Extremities exam: Present: normal inspection, full ROM, normal capillary refill. Absent: tenderness, pedal edema, joint swelling, calf tenderness Back exam: Present: normal inspection Neurological exam: Present: alert, oriented X3, CN II-XII intact Psychiatric exam: Present: normal affect, normal mood Skin exam: Present: warm, dry, intact, normal color. Absent: rash Course Vital Signs 10/03/22 14:10 Pulse Rate 107 H Respiratory 22 Rate Blood Pressure 109/79 O2 Sat by Pulse 99 Oximetry Chest Pain MDM - MDM Was pt. sent in by a medical professional or institution (, PA, ENVELOPE MACHINE ADJUSTER, urgent care, hospital, or half-way...) When possible be specific @ -No Did you speak to anyone other than the patient for history (EMS, parent, family, police, friend...)? What history was obtained from this source @ -EMS provide history Did you review nursing and triage notes (agree or disagree)? Why? @ -I reviewed and agree with nursing and triage notes Were old charts reviewed (outside hosp., previous admission, EMS record, old EKG, old radiological studies, urgent care reports/EKG's, half-way records)? Report findings @ -No old charts were reviewed Differential Diagnosis (chest pain, altered mental status, abdominal pain women, abdominal pain men, vaginal bleeding, weakness, fever, dyspnea, syncope, headache, dizziness, GI bleed, back pain, seizure, CVA, palpatations, mental health, musculoskeletal)? @ -Differential Chest Pain: Stable Angina, Unstable Angina, STEMI, NSTEMI Aortic Dissection, Pneumothorax, Musculoskeletal, Esophageal Spasm GERD, Cholecystitis, Pancreatitis, Zoster, this is not meant to be an all-inclusive list. EKG interpreted by me (3pts min.). @ -Yes and demonstrates A. fib with rate of 92. QRS 108. QTC 431. No acute ST segment elevations or depressions X-rays interpreted by me (1pt min.). @ -Yes and demonstrates no acute process CT interpreted by me (1pt min.). @ -None done U/S interpreted by me (1pt. min.). @ -None done What testing was considered but not performed or refused? (CT, X-rays, U/S, labs)? Why? @ -None What meds were considered but not given or refused? Why? @ -None Did you discuss the management of the patient with other professionals (professionals i.e. , KELBY, ENVELOPE MACHINE ADJUSTER, lab, RT, psych nurse, nursing home social worker, account general manager, teacher, licensed mortgage loan officer, case worker)? Give summary @ -No Was smoking cessation discussed for >3mins.? @ -No Was critical care preformed (if so, how long)? @ -No Were there social determinants of health that impacted care today? How? (Homelessness, low income, unemployed, alcoholism, drug addiction, transportation, low edu. Level, literacy, decrease access to med. care, care home, rehab)? @ -No Was there de-escalation of care discussed even if they declined (Discuss DNR or withdrawal of care, Hospice)? DNR status @ -No What co-morbidities impacted this encounter? (DM, HTN, Smoking, COPD, CAD, Cancer, CVA, ARF, Chemo, Hep., AIDS, mental health diagnosis, sleep apnea, morbid obesity)? @ -Atrial fibrillation Was patient admitted / discharged? Hospital course, mention meds given and route, prescriptions, significant lab abnormalities, going to OR and other pertinent info. @ -Upon arrival patient is placed in a trauma 3. A thorough history and physical exam was performed. Patient is A. fib with RVR however this does normalize. Laboratory studies are conducted and reviewed. Cardiac enzyme is undetectable. I did review the patient's cath report which was normal. I did discuss results with the patient. Did recommend admission however patient refused and wanted to go home. States he has an appointment with his loan secretary on Monday and preferred to just follow up with his outpatient appointment. He understands risks of leaving including permanent disability and . He is able to make his own decisions. Patient was discharged home and instructed return for any new or worsening symptoms. Patient was agreeable to plan is discharge in stable condition Undiagnosed new problem with uncertain prognosis? @ -Yes Drug Therapy requiring intensive monitoring for toxicity (Heparin, Nitro, Insulin, Cardizem)? @ -No Were any procedures done? @ -No Diagnosis/symptom? @ -Acute chest pain Acute, or Chronic, or Acute on Chronic? @ -Acute Uncomplicated (without systemic symptoms) or Complicated (systemic symptoms)? @ -Complicated Side effects of treatment? @ -No Exacerbation, Progression, or Severe Exacerbation? @ -No Poses a threat to life or bodily function? How? (Chest pain, [place], [place], pneumonia, PE, COPD, DKA, ARF, appy, cholecystitis, CVA, Diverticulitis, Homicidal, Suicidal, threat to staff... and all critical care pts) @ -Yes patient presents for evaluation of chest pain Disposition Clinical Impression: Chest pain, Atrial fibrillation with RVR Disposition: HOME SELF-CARE Condition: Stable Instructions (If sedation given, give patient instructions): Chest Pain (ED) Additional Instructions: Please follow-up with your heart doctor at your scheduled appointment on . Return for any new or worsening symptoms Is patient prescribed a controlled substance at d/c from ED?: No Referrals: Elmo Gomes MD [Primary Care Provider] - 1-2 days Time of Disposition: 17:47
[2022-10-03 14:47] LABS: Basophils % (A) 0 %; Eosinophils # (A) 0.1 k/uL (0-0.7); Eosinophils % (A) 1 %; HCT 45.8 % (39.0-53.0); HGB 16.2 gm/dL (13.0-17.5); Lymphocytes # (A) 2.4 k/uL (1.0-4.8); Lymphocytes % (A) 24 %; MCH 33.7 pg (25.0-35.0); MCHC 35.3 g/dL (31.0-37.0); MCV 95.5 fL (80.0-100.0); Mean Platelet Volume 8.6; Monocytes # (A) 0.6 k/uL (0-1.0); Monocytes % (A) 6 %; Neutrophils # (A) 6.9 k/uL (1.3-7.7); Neutrophils % (A) 67 %; Platelet Count 290 k/uL (150-450); RDW 12.5 % (11.5-15.5); WBC 10.2 k/uL (3.8-10.6)
--- NOTE | 2022-10-03 14:56 | XR ---
EXAMINATION TYPE: XR chest 2V DATE OF EXAM: 10/03/2022 COMPARISON: NONE TECHNIQUE: PA and lateral views submitted. HISTORY: Chest pain FINDINGS: The lungs are clear and there is no pneumothorax, pleural effusion, or focal pneumonia. Heart size normal and no overt failure. Osseous structures demonstrate hypertrophic and degenerative changes of the spine. AC joint arthropathy. Mild hyperinflation correlate for emphysema. IMPRESSION: 1. No acute process.
[2022-10-03 15:05] LABS: INR 1.1 (<1.2); Partial Thromboplastin Time 27.6 sec (22.0-30.0); Prothrombin Time 11.8 sec (9.0-12.0)
[2022-10-03 17:41] LABS: ALT 41 U/L (4-49); AST 30 U/L (17-59); African American GFR (CKD) >90 (>60 ml/min/1.73 sqM); Albumin 4.4 g/dL (3.5-5.0); Alkaline Phosphatase 81 U/L (38-126); Anion Gap 7 mmol/L; Blood Urea Nitrogen 17 mg/dL (9-20); Calcium 9.4 mg/dL (8.4-10.2); Carbon Dioxide 30 mmol/L (22-30); Chloride 101 mmol/L (98-107); Glucose 103 mg/dL (74-99); Magnesium 2.1 mg/dL (1.6-2.3); Non-African American GFR(CKD) >90 (>60 ml/min/1.73 sqM); Potassium 4.7 mmol/L (3.5-5.1); Sodium 138 mmol/L (137-145); Total Bilirubin 1.1 mg/dL (0.2-1.3); Total Protein 7.2 g/dL (6.3-8.2)
== END 2022-10-03 18:00 | disposition home or self-care (01) ==
LOC: EC 14:08
DX: I48.20 Chronic atrial fibrillation, unspecified (principal); I10 Essential (primary) hypertension; J45.909 Unspecified asthma, uncomplicated; F31.9 Bipolar disorder, unspecified; F41.9 Anxiety disorder, unspecified; K21.9 Gastro-esophageal reflux disease without esophagitis; E78.5 Hyperlipidemia, unspecified; F17.200 Nicotine dependence, unspecified, uncomplicated; Z79.01 Long term (current) use of anticoagulants; Z79.51 Long term (current) use of inhaled steroids; Z79.899 Other long term (current) drug therapy
CPT/HCPCS: 36415; 71046; 80053; 83735; 83880; 84484; 85025; 85610; 85730; 93005; 99285

== ENCOUNTER → 2022-11-10 | Day surgery (SDC) | payer OTHER ==
[~2022-11-10] MED LIST changes: -ALPRAZolam 0.25 MG TAB PO PRN; -ALPRAZolam 0.5 MG TAB PO PRN; -ASPIRIN 325 MG TAB PO STA; -ATORVASTATIN 80 MG TAB PO STA; -HEPARIN SODIUM,PORCINE 10,000 UNIT in SODIUM CHLORIDE 0.9% 1,000 ML IRRIGATION PRN; -HEPARIN SODIUM,PORCINE 2,500 UNIT in SODIUM CHLORIDE 0.9% 250 ML IRRIGATION PRN; +LACTATED RINGERS 1,000 ML IV SCH; -NITROGLYCERIN SL TABS 0.4 MG TAB SUBLINGUAL PRN; -SODIUM CHLORIDE 0.9% 1,000 ML in EMPTY BAG 1 BAG IV SCH
[2022-11-10 07:14] VITALS: BP 130/68; PULSE 59; RESP 16; TEMP 97.5
--- NOTE | 2022-11-10 07:59 | P.DS ---
Providers Attending physician: Stephen Hammonds Primary care physician: Elmo Sterling [facility] Course: The patient is a 52-year-old gentleman who was admitted to the hospital today to undergo a cardioversion but he was found to be in normal sinus mechanism. The patient is going to be discharged home on anticoagulation as well as AV joanne marck agents using metoprolol and amiodarone and I'll follow-up with the patient next week in the office Plan - Discharge Summary Discharge Rx Participant: No New Discharge Prescriptions: Continue Loratadine [Claritin] 10 mg PO DAILY #10 tab Budesonide/Formoterol Fumarate [Symbicort 160-4.5 Mcg Inhaler] 2 puff INHALATION RT-BID PRN PRN Reason: Shortness Of Breath Sucralfate [Carafate] 1 gm PO QID PRN PRN Reason: Stomach Upset Famotidine [Pepcid] 20 mg PO DAILY lisinopriL [Zestril] 5 mg PO DAILY #30 tab Amiodarone [Cordarone] 200 mg PO DAILY Atorvastatin Calcium [Lipitor] 80 mg PO DAILY Metoprolol Succinate (ER) [Toprol XL] 50 mg PO DAILY Pantoprazole Sodium [Protonix] 40 mg PO BID Montelukast Sodium [Singulair] 10 mg PO DAILY ALPRAZolam [Xanax] 0.25 mg PO BID PRN PRN Reason: Anxiety Apixaban [Eliquis] 5 mg PO BID #60 tab Flecainide [Tambocor] 50 mg PO Q12HR Discharge Medication List Loratadine [Claritin] 10 mg PO DAILY #10 tab 07/06/17 [Rx] Budesonide/Formoterol Fumarate [Symbicort 160-4.5 Mcg Inhaler] 2 puff INHALATION RT-BID PRN 11/12/17 [History] Atorvastatin Calcium [Lipitor] 80 mg PO DAILY 12/15/21 [History] Famotidine [Pepcid] 20 mg PO DAILY 12/15/21 [History] Metoprolol Succinate (ER) [Toprol XL] 50 mg PO DAILY 12/15/21 [History] Montelukast Sodium [Singulair] 10 mg PO DAILY 12/15/21 [History] Pantoprazole Sodium [Protonix] 40 mg PO BID 12/15/21 [History] Sucralfate [Carafate] 1 gm PO QID PRN 12/15/21 [History] ALPRAZolam [Xanax] 0.25 mg PO BID PRN 01/21/22 [History] Apixaban [Eliquis] 5 mg PO BID #60 tab 01/25/22 [Rx] lisinopriL [Zestril] 5 mg PO DAILY #30 tab 01/25/22 [Rx] Amiodarone [Cordarone] 200 mg PO DAILY 07/28/22 [History] Flecainide [Tambocor] 50 mg PO Q12HR 11/03/22 [History] Follow up Appointment(s)/Referral(s): Stephen Hammonds MD [STAFF PHYSICIAN] - 1 Week
== END ==
LOC: OR 06:01
PROVIDERS: ATTEND Internal Medicine Interventional Cardiology
DX: I48.0 Paroxysmal atrial fibrillation (principal); Z53.9 Procedure and treatment not carried out, unspecified reason

== ENCOUNTER 2023-04-14 15:19 | Observation (INO) | payer OTHER ==
[2023-04-14 15:46] LABS: Basophils # (A) 0.1 k/uL (0-0.2); Basophils % (A) 0 %; Eosinophils # (A) 0.4 k/uL (0-0.7); Eosinophils % (A) 3 %; HCT 42.3 % (39.0-53.0); HGB 14.6 gm/dL (13.0-17.5); Lymphocytes % (A) 28 %; MCH 32.5 pg (25.0-35.0); MCHC 34.5 g/dL (31.0-37.0); MCV 94.3 fL (80.0-100.0); Mean Platelet Volume 8.8; Monocytes # (A) 0.8 k/uL (0-1.0); Monocytes % (A) 7 %; Neutrophils # (A) 6.1 k/uL (1.3-7.7); Neutrophils % (A) 59 %; Platelet Count 286 k/uL (150-450); RBC 4.49 m/uL (4.30-5.90); RDW 12.3 % (11.5-15.5); WBC 10.5 k/uL (3.8-10.6)
[2023-04-14 15:54] LABS: Partial Thromboplastin Time 28.8 sec (22.0-30.0); Prothrombin Time 10.9 sec (10.0-12.5)
[2023-04-14 15:58] LABS: ALT 28 U/L (4-49); AST 28 U/L (17-59); African American GFR (CKD) >90 (>60 ml/min/1.73 sqM); Albumin 3.9 g/dL (3.5-5.0); Alkaline Phosphatase 90 U/L (38-126); Anion Gap 9 mmol/L; Blood Urea Nitrogen 19 mg/dL (9-20); Calcium 9.1 mg/dL (8.4-10.2); Carbon Dioxide 24 mmol/L (22-30); Chloride 110 mmol/L (98-107); Glucose 93 mg/dL (74-99); Magnesium 2.2 mg/dL (1.6-2.3); Non-African American GFR(CKD) >90 (>60 ml/min/1.73 sqM); Potassium 3.8 mmol/L (3.5-5.1); Sodium 143 mmol/L (137-145); Total Bilirubin 0.4 mg/dL (0.2-1.3); Total Protein 6.4 g/dL (6.3-8.2)
--- NOTE | 2023-04-14 17:29 | XR ---
EXAMINATION TYPE: XR chest 2V DATE OF EXAM: 04/14/2023 COMPARISON: 10/03/22 HISTORY: Shortness of breath TECHNIQUE: Frontal and lateral views of the chest are obtained. FINDINGS: Scattered senescent parenchymal changes noted. Hyperinflation compatible with COPD. No evidence for infiltrate. No evidence for atelectasis. Heart size is stable. Mediastinal structures are stable and grossly unremarkable. No evidence for hilar prominence. Degenerative changes dorsal spine. IMPRESSION: 1. No evidence for acute pulmonary disease.
[2023-04-14] MEDS ORDERED: MORPHINE SULFATE 4 MG/ML SYRINGE IVP STA (17:34)
[2023-04-14] MEDS ORDERED: ASPIRIN 81 MG PO STA (17:35)
[2023-04-14] MEDS ORDERED: DILTIAZEM 125 MG in SODIUM CHLORIDE 0.9% 100 ML IV SCH (17:45)
[2023-04-14] MEDS ORDERED: DILTIAZEM DRIP BOLUS FROM BAG 1 MG SOLN IV ONE (17:45)
--- NOTE | 2023-04-14 18:17 | ED ---
Chest Pain HPI - General Chief Complaint: Chest Pain Stated Complaint: chest pain Time Seen by Provider: 04/14/23 15:30 Source: patient Mode of arrival: ambulatory Limitations: no limitations - History of Present Illness Initial Comments: 52-year-old male with past mental history of A. fib who presents emergency department reporting chest pain. States that it started 2 hours ago. He feels as if he has a ton of bricks sitting on his chest. Has associated shortness of breath. He does have a history of A. fib. He takes Rythmol and Toprol. States he has not missed any doses. He is additionally on Eliquis without any missed doses. Patient admits to palpitations. Denies any nausea or vomiting. No ripping or tearing sensation to his back. He denies any fevers. No cough. No other alleviating, precipitating or modifying factors - Related Data Home Medications Medication Instructions Recorded Confirmed Atorvastatin Calcium [Lipitor] 80 mg PO DAILY 12/15/21 04/14/23 Famotidine [Pepcid] 20 mg PO DAILY 12/15/21 04/14/23 Metoprolol Succinate (ER) [Toprol 50 mg PO DAILY 12/15/21 04/14/23 XL] Montelukast Sodium [Singulair] 10 mg PO DAILY 12/15/21 04/14/23 Pantoprazole Sodium [Protonix] 40 mg PO BID 12/15/21 04/14/23 Sucralfate [Carafate] 1 gm PO ACHS 12/15/21 04/14/23 ALPRAZolam [Xanax] 0.25 mg PO BID 01/21/22 04/14/23 Flecainide [Tambocor] 50 mg PO Q12HR 11/03/22 04/14/23 HYDROcodone/APAP 10-325MG [Daniel 1 tab PO BID 04/14/23 04/14/23 10-325] Previous Rx's Medication Instructions Recorded Loratadine [Claritin] 10 mg PO DAILY #10 tab 07/06/17 Apixaban [Eliquis] 5 mg PO BID #60 tab 01/25/22 lisinopriL [Zestril] 5 mg PO DAILY #30 tab 01/25/22 Allergies Allergy/AdvReac Type Severity Reaction Status Date / Time No Known Allergies Allergy Verified 04/14/23 17:59 Review of Systems ROS Statement: Those systems with pertinent positive or pertinent negative responses have been documented in the HPI. ROS Other: All systems not noted in ROS Statement are negative. Past Medical History Past Medical History: Atrial Fibrillation, Asthma, GERD/Reflux, GI Bleed, Hyperlipidemia, Hypertension, Osteoarthritis (OA), Skin Disorder Additional Past Medical History / Comment(s): Hx bronchitis, hx lower GI bleed, hx DIVERTICULITIS, Psoriasis. History of Any Multi-Drug Resistant Organisms: MRSA Date of last positivie culture/infection: 10/20/07 MDRO Source:: L leg Past Surgical History: Heart Catheterization, Hernia Repair, Orthopedic Surgery Additional Past Surgical History / Comment(s): Back pain injections and lumbar spine nerve ablation, colonoscopy, Hieu Fundoplasty, left inguinal hernia repair, left knee debridement of MRSA infection around 2007. recent cardioversion, cardiac cath. August 2022 Past Anesthesia/Blood Transfusion Reactions: No Reported Reaction Additional Past Anesthesia/Blood Transfusion Reaction / Comment(s): Has never received blood. Past Psychological History: Anxiety, Bipolar, Depression Smoking Status: Current every day smoker Past Alcohol Use History: Occasional Past Drug Use History: Marijuana - Past Family History Mother Family Medical History: Coronary Artery Disease (CAD), Diabetes Mellitus Additional Family Medical History / Comment(s): Mother at age 63 yrs. General Exam Limitations: no limitations Course Vital Signs 04/14/23 04/14/23 04/14/23 15:21 17:05 18:23 Temperature 98.2 F Pulse Rate 92 74 Pulse Rate [ 120 H Bilateral Supine Apical] Respiratory 20 16 Rate Blood Pressure 112/72 102/75 O2 Sat by Pulse 99 97 Oximetry 04/14/23 04/14/23 21:39 22:33 Temperature 97.9 F Pulse Rate 82 69 Pulse Rate [ Bilateral Supine Apical] Respiratory 18 14 Rate Blood Pressure 96/59 101/58 O2 Sat by Pulse 96 97 Oximetry Chest Pain MDM - MDM Was pt. sent in by a medical professional or institution (, KELBY, VALIDATION SPECIALIST, urgent care, hospital, or retirement...) When possible be specific @ -No Did you speak to anyone other than the patient for history (EMS, parent, family, police, friend...)? What history was obtained from this source @ -No Did you review nursing and triage notes (agree or disagree)? Why? @ -I reviewed and agree with nursing and triage notes Were old charts reviewed (outside hosp., previous admission, EMS record, old EKG, old radiological studies, urgent care reports/EKG's, retirement records)? Report findings @ -No old charts were reviewed Differential Diagnosis (chest pain, altered mental status, abdominal pain women, abdominal pain men, vaginal bleeding, weakness, fever, dyspnea, syncope, headache, dizziness, GI bleed, back pain, seizure, CVA, palpatations, mental health, musculoskeletal)? @ -Differential Chest Pain: Stable Angina, Unstable Angina, STEMI, NSTEMI Aortic Dissection, Pneumothorax, Musculoskeletal, Esophageal Spasm GERD, Cholecystitis, Pancreatitis, Zoster, this is not meant to be an all-inclusive list. EKG interpreted by me (3pts min.). @ -Yes and demonstrates A. fib with a rate of 125. QRS 101. QTC of 368. No acute ST segment elevations or depressions X-rays interpreted by me (1pt min.). @ -None done CT interpreted by me (1pt min.). @ -None done U/S interpreted by me (1pt. min.). @ -None done What testing was considered but not performed or refused? (CT, X-rays, U/S, labs)? Why? @ -None What meds were considered but not given or refused? Why? @ -None Did you discuss the management of the patient with other professionals (professionals i.e. , PA, VALIDATION SPECIALIST, lab, RT, psych nurse, socially responsible investment adviser, aluminum siding mechanic, teacher, medical officer psychiatry, showcase maker)? Give summary @ -No Was smoking cessation discussed for >3mins.? @ -No Was critical care preformed (if so, how long)? @ -No Were there social determinants of health that impacted care today? How? (Homelessness, low income, unemployed, alcoholism, drug addiction, transportation, low edu. Level, literacy, decrease access to med. care, [facility], rehab)? @ -No Was there de-escalation of care discussed even if they declined (Discuss DNR or withdrawal of care, Hospice)? DNR status @ -No What co-morbidities impacted this encounter? (DM, HTN, Smoking, COPD, CAD, Cancer, CVA, ARF, Chemo, Hep., AIDS, mental health diagnosis, sleep apnea, morbid obesity)? @ -None Was patient admitted / discharged? Hospital course, mention meds given and route, prescriptions, significant lab abnormalities, going to OR and other pertinent info. @ -Upon arrival patient is placed into room 9. Thorough history and physical exam was performed. IV access established. Laboratory studies are conducted. Lab studies are performed. Patient is in A. fib with RVR. He is started on Cardizem. Patient reevaluated reports to improvement in his symptoms. Recommended admission for which the patient was agreeable. Spoke with Dr. Gomes who is agreeable to the admission Undiagnosed new problem with uncertain prognosis? @ -No Drug Therapy requiring intensive monitoring for toxicity (Heparin, Nitro, Insulin, Cardizem)? @ -No Were any procedures done? @ -No Diagnosis/symptom? @ -default Acute, or Chronic, or Acute on Chronic? @ -default Uncomplicated (without systemic symptoms) or Complicated (systemic symptoms)? @ -default Side effects of treatment? @ -No Exacerbation, Progression, or Severe Exacerbation? @ -No Poses a threat to life or bodily function? How? (Chest pain, [place], [place], pneumonia, PE, COPD, DKA, ARF, appy, cholecystitis, CVA, Diverticulitis, Homicidal, Suicidal, threat to staff... and all critical care pts) @ -No Disposition Clinical Impression: Chest pain, Atrial fibrillation with RVR Disposition: ADMITTED IP TO THIS HOSP Condition: Stable Is patient prescribed a controlled substance at d/c from ED?: No Time of Disposition: 18:58 Decision to Admit Reason: Admit from EC Decision Date: 04/14/23 Decision Time: 18:58
[2023-04-14 18:29] LABS: Appearance,Urine Clear (Clear); Bilirubin,Urine Negative (Negative); Blood,Urine Negative (Negative); Color,Urine Colorless; Glucose,Urine (UA) Negative (Negative); Ketones,Urine Negative (Negative); Leukocyte Esterase,Urine Negative (Negative); Nitrite,Urine Negative (Negative); Protein,Urine Negative (Negative); Specific Gravity,Urine 1.015 (1.001-1.035); Urobilinogen,Urine <2.0 mg/dL (<2.0)
[2023-04-14] MEDS ORDERED: NALOXONE 0.4 MG/ML 1 ML VIAL IV PRN (18:58)
[2023-04-14] MEDS: HYDROcodone/APAP 10-325MG 1 EACH TAB PO SCH (21:36)
[2023-04-14] MEDS: APIXABAN 5 MG TAB PO SCH ×2 (21:37→21:38)
[2023-04-14] MEDS: ALPRAZolam 0.25 MG TAB PO SCH (21:37)
[2023-04-14] MEDS: SUCRALFATE 1 GM TAB PO SCH (21:37)
[2023-04-14] MEDS: PANTOPRAZOLE 40 MG TABLET PO SCH (21:38)
[2023-04-15 06:15] LABS: Basophils % (A) 0 %; Eosinophils # (A) 0.3 k/uL (0-0.7); Eosinophils % (A) 3 %; HCT 39.7 % (39.0-53.0); HGB 13.8 gm/dL (13.0-17.5); Lymphocytes # (A) 2.4 k/uL (1.0-4.8); Lymphocytes % (A) 25 %; MCH 33.2 pg (25.0-35.0); MCHC 34.7 g/dL (31.0-37.0); MCV 95.5 fL (80.0-100.0); Mean Platelet Volume 9.5; Monocytes # (A) 0.7 k/uL (0-1.0); Monocytes % (A) 7 %; Neutrophils # (A) 5.9 k/uL (1.3-7.7); Neutrophils % (A) 63 %; Platelet Count 229 k/uL (150-450); RBC 4.16 m/uL (4.30-5.90); RDW 12.8 % (11.5-15.5); WBC 9.5 k/uL (3.8-10.6)
[2023-04-15] MEDS: SUCRALFATE 1 GM TAB PO SCH ×4 (06:27→21:11)
[2023-04-15] MEDS: PANTOPRAZOLE 40 MG TABLET PO SCH ×2 (06:27→16:51)
[2023-04-15 06:38] LABS: African American GFR (CKD) >90 (>60 ml/min/1.73 sqM); Blood Urea Nitrogen 20 mg/dL (9-20); Calcium 8.9 mg/dL (8.4-10.2); Carbon Dioxide 28 mmol/L (22-30); Glucose 101 mg/dL (74-99); Non-African American GFR(CKD) >90 (>60 ml/min/1.73 sqM)
[2023-04-15 06:48] LABS: Anion Gap 4 mmol/L; Chloride 110 mmol/L (98-107); Potassium 4.1 mmol/L (3.5-5.1); Sodium 142 mmol/L (137-145)
[2023-04-15] MEDS: MONTELUKAST 10 MG TAB PO SCH (07:57)
[2023-04-15] MEDS: LORATADINE 10 MG TAB PO SCH (07:57)
[2023-04-15] MEDS: lisinopriL 5 MG TAB PO SCH (07:57)
[2023-04-15] MEDS: ATORVASTATIN 80 MG TAB PO SCH (07:57)
[2023-04-15] MEDS: APIXABAN 5 MG TAB PO SCH ×2 (07:57→21:11)
[2023-04-15] MEDS: ALPRAZolam 0.25 MG TAB PO SCH ×2 (07:57→21:09)
[2023-04-15] MEDS: HYDROcodone/APAP 10-325MG 1 EACH TAB PO SCH ×2 (07:59→21:10)
[2023-04-15] MEDS ORDERED: FAMOTIDINE 20 MG TAB PO SCH (09:00)
[2023-04-15] MEDS: METOPROLOL SUCCINATE (ER) 50 MG TAB.ER.24H PO SCH (11:25)
[2023-04-15] MEDS: FLECAINIDE 50 MG TAB PO SCH ×2 (11:25→21:10)
--- NOTE | 2023-04-15 18:07 | P.CRDCN ---
History of Present Illness Consult date: 04/15/23 History of present illness: HISTORY OF PRESENTING ILLNESS 52-year-old male with possible history of paroxysmal atrial fibrillation who is known to Dr. Hammonds. He had a heart catheterization done in September 2022 which showed angiographically normal coronary arteries. Since then he was placed on flecainide therapy for his atrial fibrillation and he has done well. Patient reports that yesterday he started experience in substernal chest pressure-like sensation along with mild shortness of breath due to which she presented to the ER. On admission to the ER he was noticed to be in atrial fibrillation with rapid ventricular response. Patient soreness he converted out of atrial fibrillation and is currently in normal sinus rhythm. Patient re ported that since his cardioversion his symptoms have resolved. Patient denies that he has not used any significant alcohol or smoking recently. He denies any stimulant use excessive caffeine use or being dehydrated. He denies any exposure to being sick or having any viral illnesses lately. REVIEW OF SYSTEMS 14 point review of system is negative except what is mentioned above in HPI. PHYSICAL EXAMINATION Vital signs reviewed. Head: Normocephalic. Eyes: Sclerae nonicteric. Neck: Brisk carotid upstroke, no jugular venous distention. Lungs: Clear to auscultation. Heart: Regular rate and rhythm, S1-S2, no S3, no murmur or rub. Abdomen: Soft nontender, positive bowel sounds no organomegaly. Extremities: No edema, intact distal pulses. Neuro: Alert, oritented, no focal deficits ASSESSMENT Chest pressure and shortness of breath due to atrial fibrillation with RVR. Symptom resolved as patient converted to sinus rhythm Paroxysmal atrial fibrillation . Currently in sinus rhythm. PLAN Patient did well for 6 months on 50 mg of flecainide therapy. It seems patient had breakthrough atrial fibrillation. Patient reports that he has not missed his medications or had any stimulant use or was sick from any viral illness lately. I would increase his flecainide alexandra 100 mg twice a day temporarily. I have asked patient to follow up in clinic in 1 week to get her ECG to make sure his QRS has not prolonged. His QRS prior to definitive therapy was 84. His QRS today was 106 Continue metoprolol XL 50 mg Continue Eliquis 5 mg twice a day Outpatient follow-up with Dr. Armstrong 1-2 weeks Patient is cleared to be discharged from cardiac vessel standpoint Past Medical History Past Medical History: Atrial Fibrillation, Asthma, GERD/Reflux, GI Bleed, Hyperlipidemia, Hypertension, Osteoarthritis (OA), Skin Disorder Additional Past Medical History / Comment(s): Hx bronchitis, hx lower GI bleed, hx DIVERTICULITIS, Psoriasis. History of Any Multi-Drug Resistant Organisms: MRSA Date of last positivie culture/infection: 10/20/07 MDRO Source:: L leg Past Surgical History: Heart Catheterization, Hernia Repair, Orthopedic Surgery Additional Past Surgical History / Comment(s): Back pain injections and lumbar spine nerve ablation, colonoscopy, Hieu Fundoplasty, left inguinal hernia repair, left knee debridement of MRSA infection around 2007. recent cardioversion, cardiac cath. August 2022 Past Anesthesia/Blood Transfusion Reactions: No Reported Reaction Additional Past Anesthesia/Blood Transfusion Reaction / Comment(s): Has never received blood. Past Psychological History: Anxiety, Bipolar, Depression Smoking Status: Current every day smoker Past Alcohol Use History: Occasional Past Drug Use History: Marijuana - Past Family History Mother Family Medical History: Coronary Artery Disease (CAD), Diabetes Mellitus Additional Family Medical History / Comment(s): Mother at age 63 yrs. Medications and Allergies Home Medications Medication Instructions Recorded Confirmed Type Loratadine [Claritin] 10 mg PO DAILY #10 tab 07/06/17 04/14/23 Rx Atorvastatin Calcium [Lipitor] 80 mg PO DAILY 12/15/21 04/14/23 History Famotidine [Pepcid] 20 mg PO DAILY 12/15/21 04/14/23 History Metoprolol Succinate (ER) [Toprol 50 mg PO DAILY 12/15/21 04/14/23 History XL] Montelukast Sodium [Singulair] 10 mg PO DAILY 12/15/21 04/14/23 History Pantoprazole Sodium [Protonix] 40 mg PO BID 12/15/21 04/14/23 History Sucralfate [Carafate] 1 gm PO ACHS 12/15/21 04/14/23 History ALPRAZolam [Xanax] 0.25 mg PO BID 01/21/22 04/14/23 History Apixaban [Eliquis] 5 mg PO BID #60 tab 01/25/22 04/14/23 Rx lisinopriL [Zestril] 5 mg PO DAILY #30 tab 01/25/22 04/14/23 Rx Flecainide [Tambocor] 100 mg PO Q12HR 11/03/22 04/15/23 History HYDROcodone/APAP 10-325MG [Emmett 1 tab PO BID 04/14/23 04/14/23 History 10-325] Allergies Allergy/AdvReac Type Severity Reaction Status Date / Time No Known Allergies Allergy Verified 04/14/23 17:59 Physical Exam Vitals: Vital Signs Temp Pulse Pulse Pulse Resp BP BP 04/15/23 15:55 16 04/15/23 14:23 98.7 F 54 L 16 114/73 04/15/23 08:05 67 04/15/23 07:00 97.7 F 67 14 135/62 04/15/23 01:32 97.7 F 68 15 122/71 04/15/23 01:06 16 04/14/23 23:15 64 16 04/14/23 23:00 97.9 F 64 16 126/74 04/14/23 22:33 97.9 F 69 14 101/58 04/14/23 21:39 82 18 96/59 04/14/23 18:23 74 16 102/75 Pulse Ox 04/15/23 15:55 04/15/23 14:23 96 04/15/23 08:05 04/15/23 07:00 95 04/15/23 01:32 96 04/15/23 01:06 04/14/23 23:15 04/14/23 23:00 97 04/14/23 22:33 97 04/14/23 21:39 96 04/14/23 18:23 97 Intake and Output 04/15/23 04/15/23 04/15/23 06:59 14:59 22:59 Intake Total 120 Balance 120 Intake: Oral 120 Other: Voiding Method Toilet # Voids 2 Weight 99.79 kg Results 04/15/23 05:34 04/15/23 05:34 Cardiac Enzymes 04/14/23 04/15/23 Range/Units 20:47 01:06 Troponin I 0.019 0.015 (0.000-0.034) ng/mL CBC 04/15/23 Range/Units 05:34 WBC 9.5 (3.8-10.6) k/uL RBC 4.16 L (4.30-5.90) m/uL Hgb 13.8 (13.0-17.5) gm/dL Hct 39.7 (39.0-53.0) % Plt Count 229 (150-450) k/uL Comprehensive Metabolic Panel 04/15/23 Range/Units 05:34 Sodium 142 (137-145) mmol/L Potassium 4.1 (3.5-5.1) mmol/L Chloride 110 H (98-107) mmol/L Carbon Dioxide 28 (22-30) mmol/L BUN 20 (9-20) mg/dL Creatinine 0.80 (0.66-1.25) mg/dL Glucose 101 H (74-99) mg/dL Calcium 8.9 (8.4-10.2) mg/dL Current Medications Generic Name Dose Route Start Last Admin Trade Name Freq PRN Reason Stop Dose Admin Hydrocodone Bitart/Acetaminophen 1 each 04/14/23 21:00 04/15/23 07:59 Hydrocodone/Apap 10-325mg 1 Each Tab PO 1 each BID MARCOS Administration Alprazolam 0.25 mg 04/14/23 21:00 04/15/23 07:57 Alprazolam 0.25 Mg Tab PO 0.25 mg BID MARCOS Administration Apixaban 5 mg 04/14/23 19:30 04/15/23 07:57 Apixaban 5 Mg Tab PO 5 mg BID MARCOS Administration Protocol Atorvastatin Calcium 80 mg 04/15/23 09:00 04/15/23 07:57 Atorvastatin 80 Mg Tab PO 80 mg DAILY MARCOS Administration Flecainide Acetate 100 mg 04/15/23 10:30 04/15/23 11:25 Flecainide 50 Mg Tab PO 100 mg Q12HR MARCOS Administration Diltiazem HCl 125 mg/ Sodium 125 mls @ 0 mls/hr 04/14/23 17:[address] [facility] Protocol Per Protocol Lisinopril 5 mg 04/15/23 09:00 04/15/23 07:57 Lisinopril 5 Mg Tab PO 5 mg DAILY MARCOS Administration Loratadine 10 mg 04/15/23 09:00 04/15/23 07:57 Loratadine 10 Mg Tab PO 10 mg DAILY MARCOS Administration Metoprolol Succinate 50 mg 04/15/23 10:30 04/15/23 11:25 Metoprolol Succinate (Er) 50 Mg Tab.Er.24h PO 50 mg DAILY MARCOS Administration Montelukast Sodium 10 mg 04/15/23 09:00 04/15/23 07:57 Montelukast 10 Mg Tab PO 10 mg DAILY MARCOS Administration Naloxone HCl 0.2 mg 04/14/23 18:58 Naloxone 0.4 Mg/Ml 1 Ml Vial IV Q2M PRN Opioid Reversal Pantoprazole Sodium 40 mg 04/14/23 21:00 04/15/23 16:51 Pantoprazole 40 Mg Tablet PO 40 mg AC-BID MARCOS Administration Sucralfate 1 gm 04/14/23 21:00 04/15/23 16:51 Sucralfate 1 Gm Tab PO 1 gm ACHS MARCOS Administration Intake and Output 04/15/23 04/15/23 04/15/23 06:59 14:59 22:59 Intake Total 120 Balance 120 Intake: Oral 120 Other: Voiding Method Toilet # Voids 2 Weight 99.79 kg 04/15/23 05:34 04/15/23 05:34
[2023-04-16] MEDS: PANTOPRAZOLE 40 MG TABLET PO SCH ×2 (05:40→17:06)
[2023-04-16] MEDS: SUCRALFATE 1 GM TAB PO SCH ×4 (05:40→20:21)
[2023-04-16] MEDS: ATORVASTATIN 80 MG TAB PO SCH (09:53)
[2023-04-16] MEDS: MONTELUKAST 10 MG TAB PO SCH (09:53)
[2023-04-16] MEDS: METOPROLOL SUCCINATE (ER) 50 MG TAB.ER.24H PO SCH (09:53)
[2023-04-16] MEDS: LORATADINE 10 MG TAB PO SCH (09:53)
[2023-04-16] MEDS: ALPRAZolam 0.25 MG TAB PO SCH ×2 (09:53→20:21)
[2023-04-16] MEDS: FLECAINIDE 50 MG TAB PO SCH ×2 (09:53→20:30)
[2023-04-16] MEDS: APIXABAN 5 MG TAB PO SCH ×2 (09:53→20:21)
[2023-04-16] MEDS: HYDROcodone/APAP 10-325MG 1 EACH TAB PO SCH ×2 (09:54→20:21)
[2023-04-16] MEDS: lisinopriL 5 MG TAB PO SCH (10:01)
[2023-04-17] MEDS: PANTOPRAZOLE 40 MG TABLET PO SCH (06:23)
[2023-04-17] MEDS: SUCRALFATE 1 GM TAB PO SCH ×2 (06:23→12:02)
[2023-04-17 08:30] VITALS: RESP 16
[2023-04-17] MEDS: APIXABAN 5 MG TAB PO SCH (09:06)
[2023-04-17] MEDS: ALPRAZolam 0.25 MG TAB PO SCH (09:06)
[2023-04-17] MEDS: lisinopriL 5 MG TAB PO SCH (09:06)
[2023-04-17] MEDS: HYDROcodone/APAP 10-325MG 1 EACH TAB PO SCH (09:06)
[2023-04-17] MEDS: MONTELUKAST 10 MG TAB PO SCH (09:06)
[2023-04-17] MEDS: LORATADINE 10 MG TAB PO SCH (09:07)
[2023-04-17] MEDS: ATORVASTATIN 80 MG TAB PO SCH (09:07)
[2023-04-17] MEDS: METOPROLOL SUCCINATE (ER) 50 MG TAB.ER.24H PO SCH (12:03)
[2023-04-17] MEDS: FLECAINIDE 50 MG TAB PO SCH (12:03)
--- NOTE | 2023-04-17 12:03 | CA ---
Transthoracic Echo Report Name: Derik Moran Age: 52 Gender: M : 1970 Exam Date: 04/17/2023 07:24 Exam Location: [place] Echo Ht (in): 66 Wt (lb): 220 Ordering Physician: Elmo Gomes MD Attending/Referring Phys: NOEMY, Eliseo Manager N[place] Rashmi Bolton, RDCS Procedure CPT: Indications: A. fib., chest pain Cardiac Hx: high cholesterol, HTN Technical Quality: Fair Contrast 1: Total Dose (mL): Contrast 2: Total Dose (mL): MEASUREMENTS (Male / Female) Normal Values 2D ECHO LV Diastolic Diameter PLAX 6.1 cm 4.2 - 5.9 / 3.9 - 5.3 cm LV Systolic Diameter PLAX 4.9 cm IVS Diastolic Thickness 1.1 cm 0.6 - 1.0 / 0.6 - 0.9 cm LVPW Diastolic Thickness 1.2 cm 0.6 - 1.0 / 0.6 - 0.9 cm LV Relative Wall Thickness 0.4 RV Internal Dim ED PLAX 3.2 cm LA Systolic Diameter LX 3.9 cm 3.0 - 4.0 / 2.7 - 3.8 cm LV Diastolic Volume MOD BP 98.1 cm??? 67 - 155 / 56 - 104 cm??? LV Systolic Volume MOD BP 41.9 cm??? - 58 / 19 - 49 cm??? LV Ejection Fraction MOD BP 57.2 % >= 55 % LV Cardiac Index MOD BP 1328.3 cm???/min???m??? LV Diastolic Volume MOD 4C 94.5 cm??? LV Systolic Volume MOD 4C 32.1 cm??? LV Ejection Fraction MOD 4C 66.0 % LV Cardiac Index MOD 4C 1477.8 cm???/min???m??? LV Diastolic Length 4C 8.4 cm LV Systolic Length 4C 6.4 cm LV Diastolic Volume MOD 2C 98.5 cm??? LV Systolic Volume MOD 2C 52.0 cm??? LV Ejection Fraction MOD 2C 47.2 % LV Cardiac Index MOD 2C 1100.9 cm???/min???m??? LV Diastolic Length 2C 8.0 cm LV Systolic Length 2C 7.1 cm LA Volume 93.2 cm??? 18 - 58 / 22 - 52 cm??? LA Volume Index 42.4 cm???/m??? 16 - 28 cm???/m??? M-MODE Aortic Root Diameter MM 3.6 cm MV E Point Septal Separation 0.3 cm AV Cusp Separation MM 2.5 cm DOPPLER AV Peak Velocity 151.9 cm/s AV Peak Gradient 9.2 mmHg MV Area PHT 4.8 cm??? Mitral E Point Velocity 100.2 cm/s Mitral A Point Velocity 73.9 cm/s Mitral E to A Ratio 1.4 MV Deceleration Time 159.2 ms MV E' Velocity 12.1 cm/s Mitral E to MV E' Ratio 8.3 TR Peak Velocity 278.2 cm/s TR Peak Gradient 31.0 mmHg Right Ventricular Systolic Press 36.0 mmHg FINDINGS Left Ventricle Left ventricular ejection fraction is estimated at 55-60 %. Mildly increased septal wall thickness. Mildly increased left ventricular diastolic diameter. Right Ventricle Normal right ventricular size. Mild pulmonary hypertension. Right Atrium Normal right atrial size. Left Atrium Severely increased left atrial volume. Mildly increased left atrial area. Mitral Valve Structurally normal mitral valve. Mild mitral regurgitation. Aortic Valve Trileaflet aortic valve. No aortic valve stenosis or regurgitation. Tricuspid Valve Structurally normal tricuspid valve. Mild tricuspid regurgitation. Pulmonic Valve Structurally normal pulmonic valve. No pulmonic regurgitation. Pericardium No pericardial effusion. Aorta Normal size aortic root and proximal ascending aorta. CONCLUSIONS Technically difficult study for interpretation Normal LV systolic function No significant valvular abnormalities noted No pericardial effusion seen Mild pulmonary hypertension Previewed by: Dr. Stephen Hammonds MD (Electronically Signed) Final Date: 17 April 2023 12:02
--- NOTE | 2023-04-17 12:38 | CA ---
Exercise Stress Test Report Name: Derik Moran Exam Date: 04/17/2023 09:48 Exam Location: [place] Stress Ht (in): 66 Wt (lb): 220 BSA: 2.08 Ordering Phys: Elmo Gomes MD Referring Phys: holly gomes,, Technologist: Donavon Vogel Age: 52 Gender: M : 1970 Procedure CPT: Indications: CP ICD-10 Codes: Patient History: CHEST PAIN, DIFFICULTY IN BREATHING, PALPITATIONS, HTN, ELEVATED CHOLESTEROL LEVELS, FAMILY HX OF HEART DISEASE, CURRENT SMOKER, ASTHMA Medications: Meds past 24 hrs: Pretest Chest Pain: STRESS TEST Kwaku Protocol Exercise Duration (min:sec): 07:[address] Depressions (mm): Angina Score: Rodriguez Score: Resting HR (bpm): 66 Peak HR (bpm): 123 Resting BP (mmHg): 125 / 93 Peak BP (mmHg): 180 / 78 MPHR: 170 Target HR: 145 % MPHR: 72 METS: 8.7 Total Dose: Peak Dose: Atropine: Double Product: 35223 BP Response: Stress Termination: MAX EXERTION, PT UNABLE TO CONTINUE Stress Symptoms: CHEST PAIN Stress Summary: ECG ANALYSIS Resting ECG: Stress ECG: CONCLUSIONS Good exercise tolerance Normal EKG in response to exercise Dr. Stephen Hammonds MD (Electronically Signed) Final Date: 17 April 2023 12:37
[2023-04-17 15:09] VITALS: BP 118/72; PULSE 64; TEMP 97.4
--- NOTE | 2023-04-19 19:30 | DS ---
DISCHARGE SUMMARY CHIEF COMPLAINT: Chest pain. HISTORY OF PRESENT ILLNESS AND PHYSICAL EXAMINATION: Details of this man's history and physical can be found in the initial workup. LABORATORY STUDIES: While he was in the hospital, he had laboratory studies, details of which can be found in the laboratory section of his chart. COURSE IN THE HOSPITAL: After admission, he was placed on bedrest, started intravenous fluids and had serial EKGs and enzymes were normal. He remained in atrial fibrillation. Seen by Cardiology. He is set up for an echocardiogram, a stress exercise stress. These were unremarkable and he was discharged on the . He will follow up in the office. FINAL DIAGNOSES: 1. Acute chest pain with syncope and diaphoresis. 2. Atrial fibrillation. OPERATIONS: None. CONSULTATIONS: Cardiology, he is improved. MMLML / IJN: [id number] /
--- NOTE | 2023-04-19 21:33 | HP ---
HISTORY AND PHYSICAL CHIEF COMPLAINT: Episode of severe chest pain, diaphoresis, shortness of breath, and syncope. HISTORY OF PRESENT ILLNESS: This is another admission for this 52-year-old gentleman who has a history of atrial fibrillation and hypertension. He was at work when he suddenly had severe anterior crushing chest pain with syncope and diaphoresis. He had no focal neurologic deficits, loss of sphincter control, etc. He was brought to the emergency room. In the emergency room, his vital signs were normal as well as troponins, EKG, and other lab work. He was admitted. REVIEW OF SYSTEMS: He has had no other complaints or problems. Past medical history, family history, and personal and social histories were otherwise unremarkable or noncontributory. PHYSICAL EXAMINATION: VITAL SIGNS: Blood pressure is 132/74 with a pulse of 110 and irregularly irregular. He is afebrile. GENERAL: He was awake and alert and slightly overweight. HEAD, EARS, EYES, NOSE, MOUTH, AND THROAT: Normal. NECK: Neck veins were not distended. Thyroid was not enlarged. CHEST: Clear. CARDIAC: Demonstrated atrial fibrillation. ABDOMEN: Soft and nontender. EXTREMITIES: Normal. NEUROLOGICAL: He is intact. IMPRESSION: Episode of chest pain and syncope. PLAN: 1. Bed rest. 2. IV fluids. 3. Serial EKGs and enzymes. 4. Consult Cardiology. MMODL / IJN: [id number] /
--- NOTE | 2023-04-20 06:55 | PN ---
PROGRESS NOTE DATE OF SERVICE: 04/17/2023 CHIEF COMPLAINT: Chest pain with near-syncope and diaphoresis. HISTORY OF PRESENT ILLNESS: This gentleman is stable and is going for a stress study today. Echocardiogram has been done. PHYSICAL EXAMINATION: CHEST: Clear. CARDIAC: Normal. ABDOMEN: Soft and nontender. IMPRESSION: 1. Chest pain with near-syncope and diaphoresis. 2. Atrial fibrillation. PLAN: Stress study and echo today. MMODL / IJN: [id number] /
--- NOTE | 2023-04-20 07:45 | PN ---
PROGRESS NOTE DATE OF SERVICE: 04/16/2023 CHIEF COMPLAINT: Chest pain and arrhythmia. HISTORY OF PRESENT ILLNESS: This gentleman awaits his studies tomorrow. He is having an echocardiogram and stress study. PHYSICAL EXAMINATION: VITAL SIGNS: Normal. CHEST: Clear. CARDIAC: Normal except for his Afib. IMPRESSION: 1. Atrial fibrillation. 2. Chest pain. 3. Syncope. PLAN: Further studies tomorrow. MMODL / IJN: [id number] /
--- NOTE | 2023-04-20 08:01 | PN ---
PROGRESS NOTE DATE OF SERVICE: 04/15/2023 CHIEF COMPLAINT: Chest pain and syncope. HISTORY OF PRESENT ILLNESS: This gentleman is stable. Numbers have been normal. He has had no problems with hypertension or chest pain. PHYSICAL EXAMINATION: CHEST: Clear. CARDIAC: Exam is normal except for his AFib. IMPRESSION: History of chest pain and syncope. PLAN: Echocardiogram and stress echo tomorrow. MMODL / IJN: [id number] /
== END 2023-04-17 17:05 | disposition home or self-care (01) ==
LOC: EC 15:19 → 6NMEDSUR 19:05
PROVIDERS: ADMIT Family Medicine; ATTEND Family Medicine
DX: R55 Syncope and collapse (principal); R61 Generalized hyperhidrosis; I48.0 Paroxysmal atrial fibrillation; K21.9 Gastro-esophageal reflux disease without esophagitis; E78.5 Hyperlipidemia, unspecified; I10 Essential (primary) hypertension; J45.909 Unspecified asthma, uncomplicated; F31.9 Bipolar disorder, unspecified; F41.9 Anxiety disorder, unspecified; F17.200 Nicotine dependence, unspecified, uncomplicated; Z79.01 Long term (current) use of anticoagulants; Z79.899 Other long term (current) drug therapy; Z82.49 Family history of ischemic heart disease and other diseases of the circulatory system
CPT/HCPCS: 96374; 99285; 36415; 93005; 93017; 93306; 80053; 80048; 84443; 83735; 84484 ×2; 85025 ×2; 85610; 85730; 81003; 71046; G0378 ×4; J2270

== ENCOUNTER 2023-05-08 20:42 | Observation (INO) | payer OTHER ==
--- NOTE | 2023-05-08 21:07 | ED ---
ENT HPI - General Source: patient Mode of arrival: ambulatory Limitations: no limitations <Pollo Lozoya - Last Filed: 05/09/23 02:38> <Juaquin Betancourt - Last Filed: 05/16/23 02:19> - General Chief complaint: ENT Stated complaint: Difficulty Swallowing Time Seen by Provider: 05/08/23 21:06 - History of Present Illness Initial comments: 52-year-old male presenting to the ED with a chief complaint of sore throat for the past 2 days. Denies dyspnea at this time. Drooling. Denies fever or chills. Reports secondary to the pain presenting to the ED for further evaluation. No other complaints at this time. (Pollo Lozoya) - Related Data Home Medications Medication Instructions Recorded Confirmed Atorvastatin Calcium [Lipitor] 80 mg PO DAILY 12/15/21 05/09/23 Famotidine [Pepcid] 20 mg PO DAILY 12/15/21 05/09/23 Metoprolol Succinate (ER) [Toprol 50 mg PO DAILY 12/15/21 05/09/23 XL] Montelukast Sodium [Singulair] 10 mg PO DAILY 12/15/21 05/09/23 Pantoprazole Sodium [Protonix] 40 mg PO BID 12/15/21 05/09/23 Sucralfate [Carafate] 1 gm PO ACHS 12/15/21 05/09/23 ALPRAZolam [Xanax] 0.25 mg PO BID 01/21/22 05/09/23 Flecainide [Tambocor] 100 mg PO Q12HR 11/03/22 05/09/23 HYDROcodone/APAP 10-325MG [[place] 1 tab PO BID 04/14/23 05/09/23 10-325] Ergocalciferol (Vitamin D2) 1,250 mcg PO QMONTHLY 05/09/23 05/09/23 [Drisdol (50,000 Iu)] Previous Rx's Medication Instructions Recorded Loratadine [Claritin] 10 mg PO DAILY #10 tab 07/06/17 Apixaban [Eliquis] 5 mg PO BID #60 tab 01/25/22 lisinopriL [Zestril] 5 mg PO DAILY #30 tab 01/25/22 Allergies Allergy/AdvReac Type Severity Reaction Status Date / Time No Known Allergies Allergy Verified 05/09/23 07:02 Review of Systems ROS Other: All systems not noted in ROS Statement are negative. <Pollo Lozoya - Last Filed: 05/09/23 02:38> ROS Other: All systems not noted in ROS Statement are negative. <Juaquin Betancourt - Last Filed: 05/16/23 02:19> ROS Statement: Those systems with pertinent positive or pertinent negative responses have been documented in the HPI. Past Medical History Past Medical History: Atrial Fibrillation, Asthma, GERD/Reflux, GI Bleed, Hyperlipidemia, Hypertension, Osteoarthritis (OA), Skin Disorder Additional Past Medical History / Comment(s): Hx bronchitis, hx lower GI bleed, hx DIVERTICULITIS, Psoriasis. History of Any Multi-Drug Resistant Organisms: MRSA Date of last positivie culture/infection: 10/20/07 MDRO Source:: L leg Past Surgical History: Heart Catheterization, Hernia Repair, Orthopedic Surgery Additional Past Surgical History / Comment(s): Back pain injections and lumbar spine nerve ablation, colonoscopy, Hieu Fundoplasty, left inguinal hernia repair, left knee debridement of MRSA infection around 2007. recent cardioversion, cardiac cath. August 2022 Past Anesthesia/Blood Transfusion Reactions: No Reported Reaction Additional Past Anesthesia/Blood Transfusion Reaction / Comment(s): Has never received blood. Past Psychological History: Anxiety, Bipolar, Depression Smoking Status: Current every day smoker Past Alcohol Use History: Occasional Past Drug Use History: Marijuana - Past Family History Mother Family Medical History: Coronary Artery Disease (CAD), Diabetes Mellitus Additional Family Medical History / Comment(s): Mother at age 63 yrs. <Pollo Lozoya - Last Filed: 05/09/23 02:38> General Exam Limitations: no limitations General appearance: alert ENT exam: Present: other (Derivation of the normal anatomy of palatoglossar arch on the right side with deviated uvula. Tolerating secretions. No dyspnea or stridor.) Respiratory exam: Present: normal lung sounds bilaterally Cardiovascular Exam: Present: regular rate, normal rhythm GI/Abdominal exam: Present: soft Neurological exam: Present: alert, oriented X3 Skin exam: Present: warm, dry <Pollo Lozoya - Last Filed: 05/09/23 02:38> - General Exam Comments Initial Comments: Visual Physical Exam Vital signs reviewed General: Well-appearing, nontoxic, no acute distress. Head: Normocephalic, atraumatic Eyes: PERRLA, EOMI ENT: Airway patent Chest: Nonlabored breathing Skin: No visual rash, normal skin tone Neuro: Alert and oriented 3 Musculoskeletal: No gross abnormalities (Pollo Lozoya) Course Vital Signs 05/08/23 05/08/23 05/09/23 21:02 23:07 01:53 Temperature 98.9 F Pulse Rate 100 109 H 101 H Respiratory 20 18 Rate Blood Pressure 164/90 139/84 O2 Sat by Pulse 98 100 99 Oximetry Procedures - Incision & Drainage Site: oral Size (cm): 2 Anesthetic Used: lidocaine 1%, with epi Amount (mLs): 1 Sterile Field Used?: No Needle Aspiration Performed?: Yes Culture Obtained?: No Patient Tolerated Procedure: well, no complications <Pollo Lozoya - Last Filed: 05/09/23 02:38> Medical Decision Making - Lab Data Result diagrams: 05/08/23 22:09 05/08/23 22:09 <Pollo Lozoya - Last Filed: 05/09/23 02:38> - Lab Data Result diagrams: 05/13/23 17:50 05/13/23 17:50 <Juaquin Betancourt - Last Filed: 05/16/23 02:19> - Medical Decision Making Was pt. sent in by a medical professional or institution ([facility], [employer], urgent care, hospital, or shelter...) When possible be specific @ -No Did you speak to anyone other than the patient for history (EMS, parent, family, police, friend...)? What history was obtained from this source @ -No Did you review nursing and triage notes (agree or disagree)? Why? @ -I reviewed and agree with nursing and triage notes Were old charts reviewed (outside hosp., previous admission, EMS record, old EKG, old radiological studies, urgent care reports/EKG's, shelter records)? Report findings @ -No old charts were reviewed Differential Diagnosis (chest pain, altered mental status, abdominal pain women, abdominal pain men, vaginal bleeding, weakness, fever, dyspnea, syncope, headache, dizziness, GI bleed, back pain, seizure, CVA, palpatations, mental health, musculoskeletal)? @ -Differential Fever: Pneumonia, viral URI, endocarditis, myocarditis, pericarditis, otitis, sinusitis, peritonsillar Abscess, retropharyngeal Abscess, epiglottitis, peritonitis, appendicitis, Su cystitis, diverticulitis, hepatitis, colitis, UTI, PID, TOA, pyelonephritis, prostatitis, epididymitis, meningitis, en cephalitis, pulmonary embolism, CVA, thyroid storm, pancreatitis, adrenal crisis, cavernous sinus thrombosis, this is not meant to be an all-inclusive list. EKG interpreted by me (3pts min.). @ -As above X-rays interpreted by me (1pt min.). @ -None done CT interpreted by me (1pt min.). @ -CT interpreted by me showing right faucial tonsillitis with intratonsillar abscess measuring 27.2 x 8.5 x 5.9 mm with extensive inflammation of the adjacent parapharyngeal and retropharyngeal soft tissues extending to the right aryepiglottic fold with a second abscess in the right parapharyngeal soft tissues measuring 17.5 x 7.5 x 6.2 mm. U/S interpreted by me (1pt. min.). @ -None done What testing was considered but not performed or refused? (CT, X-rays, U/S, labs)? Why? @ -None What meds were considered but not given or refused? Why? @ -None Did you discuss the management of the patient with other professionals (professionals i.e. , PA, [employer], lab, RT, psych nurse, forensic social worker, retanned leather roller, teacher, project control officer, supervisor case loading)? Give summary @ -Case discussed with Dr. Ashley of ENT. Advises attempt at needle aspiration of abscess. Also advises starting the patient on broad-spectrum antibiotics and steroids. Will see patient on consult if admitted to observation. Case discussed with Dr. Gomes who accepts admission Was smoking cessation discussed for >3mins.? @ -No Was critical care preformed (if so, how long)? @ -No Were there social determinants of health that impacted care today? How? (Homelessness, low income, unemployed, alcoholism, drug addiction, transportation, low edu. Level, literacy, decrease access to med. care, [facility], rehab)? @ -No Was there de-escalation of care discussed even if they declined (Discuss DNR or withdrawal of care, Hospice)? DNR status @ -No What co-morbidities impacted this encounter? (DM, HTN, Smoking, COPD, CAD, Cancer, CVA, ARF, Chemo, Hep., AIDS, mental health diagnosis, sleep apnea, morbid obesity)? @ -None Was patient admitted / discharged? Hospital course, mention meds given and route, prescriptions, significant lab abnormalities, going to OR and other pertinent info. @ -Admission 52-year-old male presenting to the ED with a chief complaint of sore throat onset 2 days ago. Laboratory studies reviewed. CBC significant for an elevated white blood cell count of 13.3 patient's of neutrophils at 9.9. Chemistry panel does show elevated BUN at 22. C-reactive protein elevated at 6.1. Serology panel negative. CT scan did show an intratonsillar abscess measuring 27.2 x 8.5 x 5.9 mm and additional right parapharyngeal abscess measuring 17.5 x 7.5 x 6.2 mm. Attempt at needle aspiration was performed however no purulent drainage was able to be expressed. Patient will be placed in observation with consult to infectious disease and ENT. At this time vital signs are stable and afebrile. Undiagnosed new problem with uncertain prognosis? @ -No Drug Therapy requiring intensive monitoring for toxicity (Heparin, Nitro, Ins ulin, Cardizem)? @ -No Were any procedures done? @ -No Diagnosis/symptom? @ -Intratonsillar abscess, parapharyngeal abscess Acute, or Chronic, or Acute on Chronic? @ -Acute Uncomplicated (without systemic symptoms) or Complicated (systemic symptoms)? @ -Complicated Side effects of treatment? @ -No Exacerbation, Progression, or Severe Exacerbation? @ -No Poses a threat to life or bodily function? How? (Chest pain, [place], [place], pneumonia, PE, COPD, DKA, ARF, appy, cholecystitis, CVA, Diverticulitis, Homicidal, Suicidal, threat to staff... and all critical care pts) @ -No (Pollo Lozoya) - Lab Data Lab Results 05/08/23 05/08/23 05/08/23 Range/Units 21:51 21:51 22:09 WBC 13.3 H (3.8-10.6) k/uL RBC 4.01 L (4.30-5.90) m/uL Hgb 13.0 (13.0-17.5) gm/dL Hct 38.1 L (39.0-53.0) % MCV 95.1 (80.0-100.0) fL MCH 32.4 (25.0-35.0) pg MCHC 34.1 (31.0-37.0) g/dL RDW 12.8 (11.5-15.5) % Plt Count 223 (150-450) k/uL MPV 8.7 Neutrophils % 75 % Lymphocytes % 16 % Monocytes % 7 % Eosinophils % 2 % Basophils % 0 % Neutrophils # 9.9 H (1.3-7.7) k/uL Lymphocytes # 2.1 (1.0-4.8) k/uL Monocytes # 0.9 (0-1.0) k/uL Eosinophils # 0.3 (0-0.7) k/uL Basophils # 0.0 (0-0.2) k/uL ESR 18 H (0-15) mm/Hr Sodium (137-145) mmol/L Potassium (3.5-5.1) mmol/L Chloride (98-107) mmol/L Carbon Dioxide (22-30) mmol/L Anion Gap mmol/L BUN (9-20) mg/dL Creatinine (0.66-1.25) mg/dL Est GFR (CKD-EPI)AfAm (>60 ml/min/1.73 sqM) Est GFR (CKD-EPI)NonAf (>60 ml/min/1.73 sqM) Glucose (74-99) mg/dL Calcium (8.4-10.2) mg/dL Total Bilirubin (0.2-1.3) mg/dL AST (17-59) U/L ALT (4-49) U/L Alkaline Phosphatase (38-126) U/L C-Reactive Protein (<1.0) mg/dL Total Protein (6.3-8.2) g/dL Albumin (3.5-5.0) g/dL Influenza Type A (PCR) Not Detected (Not Detectd) Influenza Type B (PCR) Not Detected (Not Detectd) RSV (PCR) Not Detected (Not Detectd) SARS-CoV-2 (PCR) Not Detected (Not Detectd) Group A Strep (PCR) NOT DETECTED (Not Detectd) 05/08/23 Range/Units 22:09 WBC (3.8-10.6) k/uL RBC (4.30-5.90) m/uL Hgb (13.0-17.5) gm/dL Hct (39.0-53.0) % MCV (80.0-100.0) fL MCH (25.0-35.0) pg MCHC (31.0-37.0) g/dL RDW (11.5-15.5) % Plt Count (150-450) k/uL MPV Neutrophils % % Lymphocytes % % Monocytes % % Eosinophils % % Basophils % % Neutrophils # (1.3-7.7) k/uL Lymphocytes # (1.0-4.8) k/uL Monocytes # (0-1.0) k/uL Eosinophils # (0-0.7) k/uL Basophils # (0-0.2) k/uL ESR (0-15) mm/Hr Sodium 141 (137-145) mmol/L Potassium 3.8 (3.5-5.1) mmol/L Chloride 108 H (98-107) mmol/L Carbon Dioxide 27 (22-30) mmol/L Anion Gap 6 mmol/L BUN 22 H (9-20) mg/dL Creatinine 0.63 L (0.66-1.25) mg/dL Est GFR (CKD-EPI)AfAm >90 (>60 ml/min/1.73 sqM) Est GFR (CKD-EPI)NonAf >90 (>60 ml/min/1.73 sqM) Glucose 87 (74-99) mg/dL Calcium 9.1 (8.4-10.2) mg/dL Total Bilirubin 0.6 (0.2-1.3) mg/dL AST 28 (17-59) U/L ALT 35 (4-49) U/L Alkaline Phosphatase 85 (38-126) U/L C-Reactive Protein 6.1 H (<1.0) mg/dL Total Protein 6.4 (6.3-8.2) g/dL Albumin 3.9 (3.5-5.0) g/dL Influenza Type A (PCR) (Not Detectd) Influenza Type B (PCR) (Not Detectd) RSV (PCR) (Not Detectd) SARS-CoV-2 (PCR) (Not Detectd) Group A Strep (PCR) (Not Detectd) Disposition Time of Disposition: 02:00 <Pollo Lozoya - Last Filed: 05/09/23 02:38> <Juaquin Betancourt - Last Filed: 05/16/23 02:19> Clinical Impression: Abscess, intratonsillar, Parapharyngeal abscess Disposition: ADMITTED IP TO THIS HOSP Condition: Stable
[2023-05-08] MEDS: MORPHINE SULFATE 4 MG/ML SYRINGE IVP STA (22:20)
[2023-05-08] MEDS: AMPICILLIN-SULBACTAM 3 GM in SODIUM CHLORIDE 0.9% 100 ML IVPB STA (22:34)
[2023-05-08] MEDS: DEXAMETHASONE SOD PHOSPHATE 10 MG/ML 1 ML VIAL IVP STA (22:34)
[2023-05-08 22:46] LABS: Basophils % (A) 0 %; Eosinophils # (A) 0.3 k/uL (0-0.7); Eosinophils % (A) 2 %; HCT 38.1 % (39.0-53.0); Lymphocytes # (A) 2.1 k/uL (1.0-4.8); Lymphocytes % (A) 16 %; MCH 32.4 pg (25.0-35.0); MCHC 34.1 g/dL (31.0-37.0); MCV 95.1 fL (80.0-100.0); Mean Platelet Volume 8.7; Monocytes # (A) 0.9 k/uL (0-1.0); Monocytes % (A) 7 %; Neutrophils # (A) 9.9 k/uL (1.3-7.7); Neutrophils % (A) 75 %; Platelet Count 223 k/uL (150-450); RBC 4.01 m/uL (4.30-5.90); RDW 12.8 % (11.5-15.5); WBC 13.3 k/uL (3.8-10.6)
[2023-05-08] MEDS: HYDROmorphone 1 MG/ML 1 ML SYRINGE IVP STA (22:57)
[2023-05-08 23:06] LABS: ALT 35 U/L (4-49); AST 28 U/L (17-59); African American GFR (CKD) >90 (>60 ml/min/1.73 sqM); Albumin 3.9 g/dL (3.5-5.0); Alkaline Phosphatase 85 U/L (38-126); Anion Gap 6 mmol/L; Blood Urea Nitrogen 22 mg/dL (9-20); C Reactive Protein 6.1 mg/dL (<1.0); Calcium 9.1 mg/dL (8.4-10.2); Carbon Dioxide 27 mmol/L (22-30); Chloride 108 mmol/L (98-107); Glucose 87 mg/dL (74-99); Non-African American GFR(CKD) >90 (>60 ml/min/1.73 sqM); Potassium 3.8 mmol/L (3.5-5.1); Sodium 141 mmol/L (137-145); Total Bilirubin 0.6 mg/dL (0.2-1.3); Total Protein 6.4 g/dL (6.3-8.2)
[2023-05-09] MEDS: KETOROLAC 15 MG/ML 1 ML VIAL IVP STA (00:41)
[2023-05-09] MEDS: HYDROmorphone 1 MG/ML 1 ML SYRINGE IVP STA (00:42)
--- NOTE | 2023-05-09 00:54 | CT ---
EXAM: CT Neck With Intravenous Contrast CLINICAL HISTORY: ITS.REASON CT Reason: r/o r LEAD GENERATION SPECIALIST TECHNIQUE: Axial computed tomography images of the neck with intravenous contrast. CTDI is 10.5 mGy and DLP is 365.3 mGy-cm. This CT exam was performed using one or more of the following dose reduction techniques: automated exposure control, adjustment of the mA and/or kV according to patient size, and/or use of iterative reconstruction technique. COMPARISON: No relevant prior studies available. FINDINGS: Oropharynx: Right faucial tonsillitis with intra-tonsillar abscess measuring 27.2 x 8.5 x 5.9 mm with extensive inflammation of the adjacent parapharyngeal and retropharyngeal soft tissues extending caudally to the right aryepiglottic fold with effacement of the right piriform sinus.. Enlarged lingual tonsils. Hypopharynx: Extensive inflammation of the right parapharyngeal soft tissues with inflammatory phlegmon and possible tiny abscess measuring 17. 5 x 7.5 x 6.2 mm. Larynx: Right epiglottitis. Trachea: Unremarkable. Retropharyngeal space: Unremarkable. Submandibular/parotid glands: Unremarkable. Glands are normal in size. Thyroid: Unremarkable. No enlarged or calcified nodules. Bones/joints: No acute fracture. Soft tissues: Unremarkable. Vasculature: No acute findings. Lymph nodes: Prominent cervical lymph nodes. Lung apices: Unremarkable as visualized. IMPRESSION: Right faucial tonsillitis with intratonsillar abscess measuring 27.2 x 8. 5 x 5.9 mm with extensive inflammation of the adjacent parapharyngeal and retropharyngeal soft tissues extending to the right aryepiglottic fold with a second abscess in the right parapharyngeal soft tissues measuring 17.5 x 7.5 x 6.2 mm. Right epiglottitis. Prominent cervical lymph nodes. <MYCVCSECTION> Communications: 05/09/23 00:59 Verify Receipt Verified receipt with KEVIN morenork report to Dr. Fischer on 05/09 00:59 (-05:00)
[2023-05-09] MEDS: BENZOCAINE SPRAY 1 CAN TOPICAL STA (01:37)
[2023-05-09] MEDS ORDERED: NALOXONE 0.4 MG/ML 1 ML VIAL IV PRN (02:39)
[2023-05-09] MEDS: SODIUM CHLORIDE 0.9% 1,000 ML IV SCH ×2 (02:47→08:26)
[2023-05-09] MEDS: HYDROmorphone 1 MG/ML 1 ML SYRINGE IVP PRN (04:06)
[2023-05-09 05:49] LABS: Appearance,Urine Clear (Clear); Bilirubin,Urine Negative (Negative); Blood,Urine Negative (Negative); Color,Urine Yellow; Glucose,Urine (UA) Negative (Negative); Ketones,Urine Negative (Negative); Leukocyte Esterase,Urine Negative (Negative); Nitrite,Urine Negative (Negative); Protein,Urine Trace (Negative)
[2023-05-09 06:08] LABS: Specific Gravity,Urine >1.050 (1.001-1.035)
[2023-05-09 09:32] LABS: Erythrocyte Sedimentation Rate 18 mm/Hr (0-15)
[2023-05-09] MEDS ORDERED: TEMAZEPAM 30 MG CAP PO PRN (13:21)
[2023-05-09] MEDS: LACTATED RINGERS 1,000 ML IV SCH (13:36)
[2023-05-09] MEDS: ACETAMINOPHEN IV (For NPO) 1,000 MG in EMPTY BAG 1 BAG IVPB SCH (14:21)
[2023-05-09] MEDS: AMPICILLIN-SULBACTAM 3 GM in SODIUM CHLORIDE 0.9% 100 ML IVPB SCH (14:40)
[2023-05-09] MEDS: VANCOMYCIN 1,500 MG in SODIUM CHLORIDE 0.9% 500 ML 500 ML IVPB SCH (16:20)
[2023-05-09] MEDS: DEXAMETHASONE SOD PHOSPHATE 4 MG/ML 1 ML VIAL IVP SCH (16:20)
[2023-05-09] MEDS: ONDANSETRON 4 MG/2 ML VIAL IVP PRN (17:08)
--- NOTE | 2023-05-09 20:19 | CONS ---
CONSULTATION REASON FOR CONSULTATION:Right peritonsillar abscess with parapharyngeal cellulitis. HISTORY OF PRESENT ILLNESS: This patient is a 52-year-old male who was recently seen in the [facility] Emergency Room complaining of a severe right sided sore throat. The patient states that approximately 3 days prior to coming to the emergency room, he developed a slight sore throat, which became progressively worse. As the soreness became worse, the patient experienced increasing difficulty swallowing. At the same time, the patient had a significant cough. He felt he possibly had bronchitis and therefore he proceeded to the emergency room department. He was seen by the emergency room physician who called me at approximately 1 a.m. on 05/09/2023 to discuss the patient's condition. I advised the emergency room physician to attempt to aspirate the peritonsillar abscess with a needle and syringe and if necessary, the patient could be admitted to the hospital for observation. The patient does not have a history of previous repeated sore throats or tonsillitis. He smokes approximately a half a pack of cigarettes per day and has been advised to quit for obvious health reasons. PAST MEDICAL HISTORY: Reveals he has no known allergies to medications. CURRENT HOME MEDICATIONS: Include; 1. Lipitor. 2. Pepcid. 3. Toprol XL. 4. Singulair. 5. Protonix. 6. Carafate. 7. Xanax. 8. Tambocor. 9. Claritin. 10.Eliquis. 11.Zestril. 12.Zestril. 13.[place]. REVIEW OF SYSTEMS: CARDIOVASCULAR SYSTEM: Positive respect to hypertension and atrial fibrillation. RESPIRATORY: Asthma. GASTROINTESTINAL: Positive for GERD (gastroesophageal reflux disorder). METABOLIC ENDOCRINE: Positive for hypercholesterolemia. MUSCULOSKELETAL: Osteoarthritis Remainder of the review of systems is essentially unremarkable. IMAGING STUDIES: A CT scan of the patient's neck with contrast was performed and it revealed evidence of a small right peritonsillar abscess with right parapharyngeal soft tissue cellulitis/phlegmon. There was no obvious abscess in the right parapharyngeal area. PHYSICAL EXAMINATION: GENERAL: This patient is a 52-year-old male who was alert and cooperative. He states at this time that is difficult to swallow, but he does not have any difficulty breathing. HEENT: The patient is normocephalic. Tympanic membranes are normal. Middle ear spaces are free of any fluid or infection. Pupils equal, round, reactive to light and accommodation. Intranasal examination reveals moderately severe septal deviation to the left with bilateral compensatory hypertrophy of the inferior turbinates. Examination of the oropharynx reveals soft tissue edema/swelling of the right peritonsillar area. Palpation of the neck is negative for any lymph adenopathy. Cranial nerves 2 through 12, remainder of the head and neck exam is unremarkable. CHEST/CARDIOVASCULAR: Both lung hernandez are clear to percussion and auscultation. The patient is in regular sinus rhythm. S1 and S2 are present without any murmurs, S3, or S4. Peripheral pulses are bilaterally symmetrical. ABDOMEN: There is no evidence of any masses, megaly, or tenderness. The abdomen is soft. The remainder of physical exam is unremarkable. ASSESSMENT: Right peritonsillar abscess. PLAN: The patient has been admitted and we will place him on Unasyn 3 g q.8 hours and vancomycin IV(to be dosed by pharmacy). In addition, we will give him a 1000 mg of Ofirmev IV q.6 hours for pain as well as Dilaudid IV for pain. He will be placed on a soft diet, which can be advanced as tolerated. In addition to this, I am going to put him on a schedule of dexamethasone IV to help reduce the soft tissue edema and this should help with his swallowing. I will see this patient on a daily basis and advise you with regard to potential discharge. I will take this opportunity to thank you for allowing me to assist in the care of your patient. If I could be of any further assistance, please feel free to call my office. MMODL / IJN: [id number] / CHIKIS
[2023-05-09] MEDS: TEMAZEPAM 15 MG CAP PO PRN (21:19)
[2023-05-09] MEDS: HYDROcodone/APAP 10-325MG 1 EACH TAB PO SCH (21:19)
[2023-05-09] MEDS: FLECAINIDE 50 MG TAB PO SCH (21:19)
[2023-05-09] MEDS: ENOXAPARIN 80 MG/0.8 ML SYRINGE SQ SCH (21:20)
--- NOTE | 2023-05-10 00:58 | HP ---
HISTORY AND PHYSICAL CHIEF COMPLAINT: Pain in the throat and dysphagia. HISTORY OF PRESENT ILLNESS: This is another admission for this 52-year-old white male. He presented to the emergency room after a sore throat for several days and could not swallow. He had severe pain. In the emergency room, studies suggest that he had a peritonsillar abscess and he was admitted. REVIEW OF SYSTEMS: He cannot talk. Past medical history, family history, and personal and social histories reveal that he has a history of coronary artery disease, CKD, COPD. MEDICATIONS: He is on numerous medications including, 1. Atorvastatin. 2. Vicodin. 3. Xanax. 4. Pepcid. 5. Eliquis. 6. Pantoprazole. 7. Flecainide. 8. Montelukast. 9. Lisinopril. 10.Metoprolol. 11.Loratadine. He does continue to smoke. Surgically, he has had a hernia repair. PHYSICAL EXAMINATION: VITAL SIGNS: Blood pressure is 124/80 with a pulse of 91, respirations of 33, and temperature 99. GENERAL: He appeared to be slightly overweight and he was in significant discomfort trying to swallow and talk. HEAD, EARS, EYES, NOSE, MOUTH, AND THROAT: Normal except for tenderness in the right side of the jaw and neck. CHEST: Clear. CARDIAC: Normal. ABDOMEN: Soft and nontender. EXTREMITIES: Normal. IMPRESSION: Peritonsillar abscess. PLAN: 1. Bed rest. 2. IV fluids. 3. Analgesics. 4. ENT consult. TYRONE / GENE: [id number] /
[2023-05-10 04:36] LABS: African American GFR (CKD) >90 (>60 ml/min/1.73 sqM); Non-African American GFR(CKD) >90 (>60 ml/min/1.73 sqM)
[2023-05-10 09:03] LABS: Basophils # (A) 0.01 X 10*3/uL (0.00-0.10); Basophils % (A) 0.1 %; Eosinophils # (A) 0 X 10*3/uL (0.04-0.35); Eosinophils % (A) 0 %; HCT 35.5 % (39.6-50.0); Lymphocytes # (A) 0.74 X 10*3/uL (0.90-5.00); Lymphocytes % (A) 4.3 %; MCH 32.5 pg (27.0-32.0); MCHC 33.8 g/dL (32.0-37.0); MCV 96.2 FL (80.0-97.0); Mean Platelet Volume 12.1 FL (9.5-12.2); Monocytes # (A) 0.56 X 10*3/uL (0.20-1.00); Monocytes % (A) 3.2 %; NRBC Per 100 WBC 0 X 10*3/uL (0.00-0.01); Neutrophils # (A) 15.92 X 10*3/uL (1.80-7.70); Neutrophils % (A) 91.8 %; Platelet Count 236 X 10*3/uL (140-440); RBC 3.69 X 10*6/uL (4.40-5.60); RDW 12.9 % (11.5-14.5); WBC 17.34 X 10*3/uL (4.50-10.00)
[2023-05-10] MEDS: ALPRAZolam 0.25 MG TAB PO PRN (12:17)
[2023-05-10] MEDS: HYDROmorphone 0.5 MG/0.5 ML SYRINGE IVP PRN (12:17)
[2023-05-10] MEDS: HYDROcodone/APAP 10-325MG 1 EACH TAB PO PRN (15:06)
[2023-05-10] MEDS: DEXAMETHASONE SOD PHOSPHATE 10 MG/ML 1 ML VIAL IVP SCH (16:12)
--- NOTE | 2023-05-10 19:25 | DS ---
PROGRESS NOTE SUBJECTIVE: Vital signs stable. This is a progress note not a discharge summary. The date of this progress note is to to 05/10/2023. The patient states that he is able to swallow soft foods at this time. He was not able to do this yesterday. In addition to this, he is able to talk. However, he states that the right side of his throat is still sore. I reassured the patient that he has only been on medication for approximately 24 hours. Hopefully, he will gradually improve. OBJECTIVE: HEENT: The patient is normocephalic. Tympanic membranes are normal. Examination of oropharynx reveals there is significant decrease in the swelling of the right soft tissue in the region of the right tonsil. NECK: Palpation of the neck does not reveal any tenderness, fluctuance, or lymphadenopathy. The remainder of the head and neck exam, chest and cardiovascular exam and physical exam is unchanged since last visit. ASSESSMENT: Right peritonsillar abscess with right parapharyngeal cellulitis. PLAN: The patient is still in the process of completing his course of dexamethasone. We will continue him on Unasyn and vancomycin at this time. The intravenous Ofirmev has been discontinued after 24 hours. I have ordered for the patient to receive [place] 10/325 p.o. q.6 hours p.r.n. for pain. I will evaluate the patient tomorrow early afternoon and advise the nursing staff of his status with respect to discharge date. When I see the patient tomorrow if he is not improved to the point what I feel he should have, then I will probably repeat his CT scan with contrast of the neck. MMSINCERE / EVERETTN: [id number] / MTDD
--- NOTE | 2023-05-10 19:25 | DS ---
PROGRESS NOTE ADDENDUM: The progress note that was recently dictated was for the date of 05/10/2023. TYRONE / EVERETTN: [id number] / MTDD
[2023-05-11] MEDS: VANCOMYCIN TROUGH DUE 1 EACH MISC MISCELLANE ONE (06:42)
--- NOTE | 2023-05-11 12:22 | PN ---
PROGRESS NOTE DATE OF SERVICE: 05/10/2023 CHIEF COMPLAINT: Right-sided peritonsillar abscess. HISTORY OF PRESENT ILLNESS: This gentleman is in a lot of pain. His white count is also going up. PHYSICAL EXAMINATION: NECK: Right side of the neck is tender. CHEST: Clear. CARDIAC: Normal. IMPRESSION: 1. Right peritonsillar abscess. 2. Coronary artery disease. PLAN: ENT is repeating his CAT scan. He likely will require a surgical intervention. MMODL / IJN: [id number] /
[2023-05-11 15:14] LABS: Basophils % (A) 0 %; Eosinophils # (A) 0.1 k/uL (0-0.7); Eosinophils % (A) 1 %; HCT 38.2 % (39.0-53.0); HGB 12.9 gm/dL (13.0-17.5); Lymphocytes # (A) 0.8 k/uL (1.0-4.8); Lymphocytes % (A) 4 %; MCH 32.7 pg (25.0-35.0); MCHC 33.8 g/dL (31.0-37.0); MCV 96.8 fL (80.0-100.0); Mean Platelet Volume 9.8; Monocytes # (A) 0.7 k/uL (0-1.0); Monocytes % (A) 4 %; Neutrophils # (A) 17.4 k/uL (1.3-7.7); Neutrophils % (A) 91 %; Platelet Count 234 k/uL (150-450); RBC 3.94 m/uL (4.30-5.90); WBC 19.2 k/uL (3.8-10.6)
--- NOTE | 2023-05-11 18:16 | PN ---
PROGRESS NOTE SUBJECTIVE: Vital signs stable.The date of this progress note is 05/11/2023. The patient is afebrile. The patient states that he is still having soreness in the right side of his throat and slight difficulty swallowing. At this point, he is eating a soft to regular diet. His speech and voice seem to be normal. OBJECTIVE: HEENT: The patient is normocephalic. Tympanic membranes normal. Examination of oropharynx reveals that the both right and left tonsillar/peritonsillar areas appear to be normal. That is to say, the previously noted soft tissue edema around the right tonsil has resolved, and there is no erythema. There is also no tenderness to palpation of the right tonsillar/peritonsillar with the tongue blade. NECK: The patient points to a lower portion of his neck where he states that it feels like there is something there especially when he swallows. Deep palpation of the neck does not reveal any areas of fluctuance, masses, or lymphadenopathy in either the anterior or right lateral triangles of the neck. Remainder of the head and neck exam is unremarkable. ASSESSMENT: Right peritonsillar abscess/right parapharyngeal cellulitis. PLAN: The patient is persistently complaining of some pain in the throat and some difficulty swallowing. This is of some concern. Therefore, I am going to get a repeat CT scan of the neck with contrast to evaluate the status of the abscess that was noted in the ER CT scan. I spent approximately 15 minutes with this patient. TYRONE / EVERETTN: [id number] / CHIKIS
--- NOTE | 2023-05-11 20:31 | PN ---
PROGRESS NOTE DATE OF SERVICE: 05/11/2023 CHIEF COMPLAINT: Right peritonsillar abscess. HISTORY OF PRESENT ILLNESS: This gentleman is to get another CT today and he is being followed by ENT. TYRONE / GENE: [id number] /
[2023-05-12] MEDS: SODIUM CHLORIDE 0.9% 1,000 ML IV SCH
--- NOTE | 2023-05-12 12:12 | CT ---
EXAMINATION TYPE: CT neck chest w con CT DLP: 1167.5 mGycm, Automated exposure control for dose reduction was used. DATE OF EXAM: 05/11/2023 1:46 PM COMPARISON: 05/08/2023. CLINICAL INDICATION:Male, 52 years old with history of Right tonsilar abscess;, Right tonsilar absces s. TECHNIQUE: Standard enhanced CT of the neck and chest. Axial sections with coronal and sagittal refo rmats were obtained. Contrast used:100ml mL of Isovue 300 with IV Contrast, (none if empty) Oral contrast used: (none if empty) FINDINGS: Brain: Visualized portions are grossly unremarkable. Orbits: Unremarkable Sinuses: Grossly unremarkable. Spaces of the neck: There remains enlargement of the right palatine tonsil with phlegmonous change po ssibly underlying early abscess formation measuring up to 7 mm. This may be mildly improved from prio r CT on 05/08/2023. The soft tissue inflammation and thickening extending from the inferior oropharynx down the right parapharyngeal space to the level of the vocal cords remains however mildly decreased in size. Area measures up to 9.6 x 2.6 cm on coronal imaging and when measuring in cross-sectional i maging measures approximately 25 x 21 mm at the level of the epiglottis, previously 28 x 33 mm. Musculoskeletal: No acute osseous pathology. Lymph nodes: Multiple nonenlarged lymph nodes are seen along both anterior chains of the neck. Vascular structures: Visualized major arteries are patent without evidence of aneurysm. Thoracic Inlet/airway: Airway is patent. The lung apices are clear. Soft tissues/Thyroid: Thyroid and remainder of the soft tissues are unremarkable. Other: none. LUNGS/ PLEURA: No evidence for focal consolidation, pneumothorax or pleural effusion. No cyst suspici ous pulmonary nodules. AIRWAY: Patent and unremarkable. HEART: Size within normal limits. MEDIASTINUM: No gross evidence of adenopathy. VASCULATURE: No aortic aneurysm. MUSCULOSKELETAL: Mild disc degeneration changes are present throughout the thoracolumbar spine. SOFT TISSUES/LYMPH NODES: Unremarkable. LOWER NECK: No significant findings. UPPER ABDOMEN: Similar appearance of pancreatic tail dating back to 2013. No suspicious upper abdomin al lesions. Surgical clips in the gastroesophageal junction. The gallbladder is nondistended. IMPRESSION 1. Mild interval decrease in right parapharyngeal soft tissue thickening. No definitive organizing f luid collection on CT imaging. No greater than 1.0 cm in short axis lymph nodes identified within the head and neck. Findings discussed with ordering provider. 2. No evidence for acute thoracic process. No lymphadenopathy within the chest.
[2023-05-12] MEDS: HYDROcodone/APAP 15 ML SOLUTION PO PRN (15:08)
--- NOTE | 2023-05-12 18:31 | MR ---
EXAMINATION TYPE: MR neck wo/w con DATE OF EXAM: 05/12/2023 5:11 PM CLINICAL INDICATION:Male, 52 years old with history of abscess; Intratonsillar, parapharyngeal r. COMPARISON: None. TECHNIQUE: Multi planar, multi sequence imaging was performed of the neck soft tissues. MR contrast: IV Contrast: 10 cc Gadavist FINDINGS: There is a nonenhancing fluid collection in the right retropharyngeal region measuring 6.7 x 1.9 x 1.5 cm. Additional right peritonsillar abscess is also confirmed measuring 17 x 11 mm. The g lottis appears unremarkable. Several nonenlarged anterior chain lymph nodes are identified. There i s no evidence to suggest a solid soft tissue mass. The cervical vertebral bodies have preserved heights and alignment. Multilevel disc desiccation and anterior osteophytosis are present. The cervical spinal cord demonstrates a normal appearance. IMPRESSION: Findings on CT correlate with retropharyngeal abscess and right palatine peritonsillar abscess. Findings communicated to Dr. Elmo Gomes MD on 05/12/2023 6:[address] Abdirashid Mejia.
--- NOTE | 2023-05-12 20:09 | PN ---
PROGRESS NOTE DATE OF SERVICE: 05/12/2023 CHIEF COMPLAINT: Peritonsillar abscess. HISTORY OF PRESENT ILLNESS: At this time doing fairly well. According to the CAT scan today, the lesion is getting a little bit smaller. PHYSICAL EXAMINATION: CHEST: Clear. CARDIAC: Normal NECK: He still has some swelling and tenderness in the right side of the back. IMPRESSION: Peritonsillar abscess. PLAN: Continue with IV fluids and antibiotics. MMODL / IJN: [id number] /
--- NOTE | 2023-05-12 21:55 | PN ---
/ PROGRESS NOTE DATE OF SERVICE: 05/12/2023 SUBJECTIVE: Vital signs stable. The patient is still complaining of pain and difficulty swallowing any solid foods. He has now been on high dose intravenous antibiotics for almost 72 hours and I would have expected that there would be a significant improvement in his symptoms. OBJECTIVE: HEENT: The patient is normocephalic. Examination of oropharynx is unchanged since his last examination. Palpation of neck is negative for the obvious lymphadenopathy. ASSESSMENT: Right parapharyngeal/peritonsillar abscess with intratonsillar abscess. Retropharyngeal cellulitis vs abscess? PLAN: Because the patient's symptoms were so worrisome, we decided to repeat the CT scan. On repeat of the CT scan. It does show evidence of a re-forming right peritonsillar abscess, and in addition of this, it is noted that the patient now has a large retropharyngeal abscess. On previous CT scans, this came up as cellulitis. We subsequently performed an MRI because it was difficult to tell on the CT scan whether the latest CT scan was showing actual fluid or a possible mass. The MRI confirms that it is fluid in the retropharyngeal space(Large retropharyngeal abscess) as well as right peritonsillar abscess. Therefore, I have advised the patient that because of the size of the retropharyngeal abscess that it would be best that he would be transferred to the ENT Service at [facility] for definitive surgical treatment. I will make the necessary arrangement with [facility]. I have already spoken with the lead warehouse associate to initiate the transfer. I spent approximately 15 minutes with the patient robert. TYRONE / EVERETTN: [id number] / CHIKSI
[2023-05-13] MEDS: VANCOMYCIN 1,500 MG in SODIUM CHLORIDE 0.9% 500 ML 500 ML IVPB SCH (02:05)
[2023-05-13] MEDS ORDERED: VANCOMYCIN TROUGH DUE 1 EACH MISC MISCELLANE ONE (06:00)
[2023-05-13 06:59] LABS: African American GFR (CKD) >90 (>60 ml/min/1.73 sqM); Non-African American GFR(CKD) >90 (>60 ml/min/1.73 sqM)
[2023-05-13 15:10] VITALS: BP 152/87; PULSE 65; RESP 16; TEMP 97.9
[2023-05-13 18:11] LABS: Basophils # (A) 0.1 k/uL (0-0.2); Basophils % (A) 1 %; Eosinophils # (A) 0.2 k/uL (0-0.7); Eosinophils % (A) 1 %; HCT 41.3 % (39.0-53.0); HGB 14.2 gm/dL (13.0-17.5); Lymphocytes # (A) 3.2 k/uL (1.0-4.8); Lymphocytes % (A) 25 %; MCH 32.6 pg (25.0-35.0); MCHC 34.3 g/dL (31.0-37.0); MCV 95.1 fL (80.0-100.0); Mean Platelet Volume 8.4; Monocytes # (A) 0.9 k/uL (0-1.0); Monocytes % (A) 7 %; Neutrophils # (A) 8.6 k/uL (1.3-7.7); Neutrophils % (A) 65 %; Platelet Count 284 k/uL (150-450); RBC 4.35 m/uL (4.30-5.90); RDW 12.4 % (11.5-15.5); WBC 13.2 k/uL (3.8-10.6)
[2023-05-13 18:22] LABS: ALT 55 U/L (4-49); AST 29 U/L (17-59); African American GFR (CKD) >90 (>60 ml/min/1.73 sqM); Albumin 3.6 g/dL (3.5-5.0); Albumin/Globulin Ratio 1.5; Alkaline Phosphatase 71 U/L (38-126); Anion Gap 5 mmol/L; Blood Urea Nitrogen 12 mg/dL (9-20); Calcium 8.6 mg/dL (8.4-10.2); Carbon Dioxide 27 mmol/L (22-30); Chloride 108 mmol/L (98-107); Globulin 2.4 g/dL; Glucose 92 mg/dL (74-99); Non-African American GFR(CKD) >90 (>60 ml/min/1.73 sqM); Potassium 3.6 mmol/L (3.5-5.1); Sodium 140 mmol/L (137-145); Total Bilirubin 0.4 mg/dL (0.2-1.3)
--- NOTE | 2023-05-13 19:49 | PN ---
PROGRESS NOTE DATE OF SERVICE: 05/13/2023 CHIEF COMPLAINT: Peritonsillar abscess. HISTORY OF PRESENT ILLNESS: This gentleman's condition is no better and slightly worse. His pain is increased, and he is having increasing difficulty swallowing and now is starting to have some respiratory difficulty with stridor. , he had a CT which once again suggested a peritonsillar abscess, followed up with an MRI which confirmed it along with possibly a second abscess. It was expected that this would be drained by ENT, but was not. Then, I got a call this morning on the that the patient was being transferred to [facility], but there was not a bed, and his insurance denied ambulance transfer. I was asked to give an order that the patient could be transported by a privately owned vehicle, which I denied. I was concerned about the possibility of the patient getting into difficulty after leaving [facility] with possible respiratory distress, sepsis, etc. I asked that the medical chemist be contacted, and Dr. Mcclure apparently gave the order that the patient could go by POV. Dr. Mcclure was not available by phone, but by text. I texted him about my concerns that this patient had been in the hospital for over a week with significant pain and rising white blood cell count. He steroids. However, there is no record in the hospital [facility] that he received steroids. At the time of this dictation, 6:30 p.m., the patient was still on the floor with no acceptance from [facility] nor transportation arrangements. The patient was still receiving IV antibiotics, analgesics, and was explained the difficulties with his case in terms of management and transfer. The patient and his significant other were understandably upset. MMODL / IJN: [id number] /
[2023-05-14] MEDS ORDERED: VANCOMYCIN TROUGH DUE 1 EACH MISC MISCELLANE ONE (09:00)
--- NOTE | 2023-05-15 18:07 | DS ---
DISCHARGE SUMMARY HISTORY OF PRESENT ILLNESS: The patient is a very pleasant 52-year-old male, who was admitted to [facility] via the emergency room on 05/08/2023. Please note that Dr. Gomes may also dictate a separate discharge summary. The patient was seen in the emergency room, initially complaining of a sore throat that started approximately 2 to 3 days prior to presenting to the emergency room. At that time, he was not having any dyspnea, drooling, fever, or significant dysphagia. He was complaining of severe right-sided throat pain. I was the ENT specialist on-call at the time that the patient came into the emergency room. I was alerted by the emergency room at approximately 1 a.m. in the morning and the case was discussed. The PA, who saw the patient, stated that a CT scan of the neck with contrast revealed that the patient had evidence of a right peritonsillar abscess with right parapharyngeal cellulitis/phlegmon. At that time, there did not appear to be any evidence of a retropharyngeal abscess. The PA, along with the emergency room department physician attempted with multiple passes with an 18-gauge needle and a 10 mL syringe to aspirate this abscess. However, they were not successful. I advised them that if this was the case, then they should admit the patient and start him on Unasyn IV q.6 hours. In addition, he would be started on vancomycin 1500 mg IV to start with subsequent doses to be determined by the Pharmacy Department. We also placed the patient on a course of dexamethasone IV over a period of 48 hours. Initial examination of the patient's oropharynx revealed moderate peritonsillar edema with tenderness to palpation with a tongue blade, but no actual feeling of fluctuance. Palpation of the neck was negative for any swelling, lymphadenopathy, or tenderness. The patient did not have stiffness of his neck. The patient was given a regular diet and initially he was able to tolerate this. His initial white count was approximately 13,000, but of course this elevated after the patient was given dexamethasone to 17,000. The patient's past medical history reveals that he has a history of asthma, hypercholesterolemia, gastroesophageal reflux disorder, and hypertension. He smokes approximately 1/2 pack cigarettes per day and has been advised to quit for obvious health reasons. HOSPITAL COURSE: Initially, the patient seemed to improve with most of the soft tissue edema in the pharynx resolving within less than 48 hours. However, with resolution of the soft tissue edema, it was noted the patient was having increasing difficulty swallowing solid foods. He had no difficulty with liquids and was not complaining of any difficulty breathing/dyspnea. A repeat CT scan with contrast of the neck was done on approximately the third day of the patient's admission because of the worrisome dysphagia. It showed improvement of the cellulitis in the peritonsillar region and also in the area of the para-pharyngitis. However, there was a question of there being either fluid or a mass now showing in the retropharyngeal area. Because with the CT scan it was difficult to distinguish whether this was a mass or actual fluid, an MRI with contrast was subsequently performed. This confirmed the presence not only of a formed right peritonsillar abscess along with increased right parapharyngeal cellulitis, phlegmon, and now there was evidence of a large retropharyngeal abscess located at the level of the laryngeal introitus and tracking below. Because of the x-ray findings which showed that the retropharyngeal abscess might possibly be tracking towards the patient's mediastinum, I made the decision that the patient should be transferred to a [facility], [facility] for definitive surgical treatment. I discussed my plans with the patient and his family and they were in agreement. I subsequently spent time on the phone talking to [facility] coordinators and also to Dr. Marrero with regard to transfer. She agreed that the transfer was appropriate and that they would initiate their transfer program to get the patient to [facility] and admit him. It was agreed that once he was at [facility] that the ENT Department would take the lead with respect to his care. Part of my concern in transferring the patient was that since this abscess appeared to be tracking towards mediastinum, those types of abscess are best handled at the [facility] because it may require the addition of Thoracic Services on standby to completely drain this lesion. I did not feel comfortable operating on this patient at a [facility] and I felt that it was appropriate to transfer the patient to [facility]. I advised the nursing staff to be sure and contact Dr. Gomes and notify him of this decision. This all took place at approximately between 9 and 09:30 p.m. at night, on the evening of 05/12/2023. The nursing staff stated that they would try and contact Dr. Gomes and apparently did try several times. In the meantime, it was discovered that there were insurance issues to sort out prior to this patient's transfer. However, he eventually was successfully transferred to the [facility]. All the necessary records, CD copies of his imaging studies, and their reports were forwarded along with the patient as he was transferred by ambulance. PLAN: Therefore, the patient has been transferred to the [facility] for more definitive care and surgery to drain a large retropharyngeal abscess. It of course is anticipated that the other areas of infection will be dealt with if it is necessary, i.e. the parapharyngeal area, peritonsillar, parapharyngeal cellulitis, etc. All information regarding the transfer was conveyed to the patient and the patient's and they were in agreement with my decision to transfer the patient. MMSINCERE / GENE: [id number] / CHIKIS
--- NOTE | 2023-05-15 20:34 | DS ---
DISCHARGE SUMMARY CHIEF COMPLAINT: Right-sided throat and neck pain. HISTORY OF PRESENT ILLNESS AND PHYSICAL EXAMINATION: Details of this man's history and physical can be found in the initial workup. LABORATORY STUDIES: While he was in the hospital, he had laboratory studies, details of which can be found in the laboratory section of his chart. COURSE IN THE HOSPITAL: After admission, he was placed on bedrest, started on intravenous fluids and was seen in consultation by ENT for right peritonsillar abscess. He was started on antibiotics. His incision and drainage were not done after admission. The patient was followed while he continued to have increased pain and swelling. After several days, a repeat CT was done which suggested a tonsillar abscess, followed by an MRI which was confirmatory. At that point, ENT requested that the patient be transferred out to [facility] and arrangements were made. FINAL DIAGNOSIS: Tonsillar abscess. OPERATIONS: None. CONSULTATIONS: ENT. TYRONE / GENE: [id number] /
== END 2023-05-13 19:15 ==
LOC: EC 20:42 → 6NMEDSUR 05-09 02:53
PROVIDERS: ADMIT Family Medicine; ATTEND Family Medicine
DX: J36 Peritonsillar abscess (principal); I48.91 Unspecified atrial fibrillation; K21.9 Gastro-esophageal reflux disease without esophagitis; E78.5 Hyperlipidemia, unspecified; F31.9 Bipolar disorder, unspecified; F41.9 Anxiety disorder, unspecified; I25.10 Atherosclerotic heart disease of native coronary artery without angina pectoris; I12.9 Hypertensive chronic kidney disease with stage 1 through stage 4 chronic kidney disease, or unspecified chronic kidney disease; N18.9 Chronic kidney disease, unspecified; J44.9 Chronic obstructive pulmonary disease, unspecified; F17.210 Nicotine dependence, cigarettes, uncomplicated; Z20.822 Contact with and (suspected) exposure to COVID-19; Z79.01 Long term (current) use of anticoagulants; Z79.899 Other long term (current) drug therapy
CPT/HCPCS: 96376 ×6; 96361 ×3; 96366 ×5; 96367 ×3; 96372 ×4; 96375 ×4; 96365; 99285; 36415; 87651; 80053 ×2; 85652; 82565 ×2; 85025 ×4; 80202; 86140; 81003; 87040; 87636; 70491 ×2; 71260; 70543; G0378 ×5; J3370 ×5; J2270; J1100 ×6; J3360; J2405 ×4; J0696; J1650 ×4; J1170 ×7; J0295 ×4; J0131 ×2; J1885; Q9967 ×2; A9585

== ENCOUNTER → 2024-06-14 | Outpatient (CLI) | payer BC ==
[2024-06-14 14:45] LABS: African American GFR (CKD) >90 (>60 ml/min/1.73 sqM); Blood Urea Nitrogen 17 mg/dL (9-20); Non-African American GFR(CKD) >90 (>60 ml/min/1.73 sqM)
--- NOTE | 2024-06-15 12:10 | CT ---
EXAMINATION TYPE: CT soft tissue neck wo/w con DATE OF EXAM: 06/14/2024 3:41 PM COMPARISON: 05/11/2023 04/28/2023. CLINICAL INDICATION: Male, 53 years old with history of R13.10 DYSPHAGIA J36 PERITONSILLAR ABSCESS R5 9.9; PHH, sore throat, multiple throat surgeries TECHNIQUE: Standard enhanced CT of the neck. Axial sections with coronal and sagittal reformats were obtained. Contrast used:100ml mL of Isovue 300 without and with IV Contrast, (None if empty) Oral contrast used: (None if empty) CT DLP: 1106 mGycm, Automated exposure control for dose reduction was used. FINDINGS: Brain: Visualized portions are grossly unremarkable. Orbits: Unremarkable Sinuses: Mild paranasal sinus mucosal thickening most pronounced in the flexor sinus. Spaces of the neck: Clear and symmetric. No evidence for organizing fluid collection. No lymphadenopa thy. [place] tonsils are prominent. Resolution of findings seen on 05/08/2023 exam with tonsillitis w ith phlegmonous changes extending inferiorly. Musculoskeletal: No acute osseous pathology. Lymph nodes: Multiple nonenlarged lymph nodes are seen along both anterior chains of the neck. Vascular structures: Visualized major arteries are patent without evidence of aneurysm. Thoracic Inlet/airway: Airway is patent. The lung apices are clear. Soft tissues/Thyroid: Thyroid and remainder of the soft tissues are unremarkable. Other: none. IMPRESSION: No definite evidence for abscess or significant abnormality. No lymphadenopathy. Resolution of findin gs seen on 05/08/2023 exam with tonsillitis with phlegmonous changes extending inferiorly. [facility], , 06/15/2024 12:07 PM
== END | disposition home or self-care (01) ==
LOC: RADCTMAIN 14:10
PROVIDERS: ATTEND Family Medicine
DX: J36 Peritonsillar abscess (principal); R59.9 Enlarged lymph nodes, unspecified
CPT/HCPCS: 82565; 84520; 70492; 36415; Q9967

== ENCOUNTER → 2024-06-25 | Outpatient (CLI) | payer BC ==
--- NOTE | 2024-06-26 07:24 | FL ---
EXAMINATION TYPE: FL barium swallow DATE OF EXAM: 06/25/2024 2:51 PM COMPARISON: None. CLINICAL INDICATION: Male, 53 years old with history of R13.10 DYSPHAGIA, UNSPECIFIED, Dysphagia TECHNIQUE: Esophagram was performed per the air contrast technique. The patient swallowed barium and effervescent crystals without difficulty or delay. FINDINGS: Esophageal peristalsis and motility appear to be within normal limits. There is no evidence for filling defect, mass or diverticulum. No hiatal hernia seen. Subsequently single contrast cervical esophagram was performed which fails demonstrate evidence for a spiration penetration or mass. IMPRESSION: Unremarkable study. [facility], , 06/26/2024 7:22 AM
== END | disposition home or self-care (01) ==
LOC: RADFLMAIN 13:54
PROVIDERS: ATTEND Otolaryngology
DX: R13.10 Dysphagia, unspecified (principal)
CPT/HCPCS: 74220

== ENCOUNTER 2024-10-16 12:40 | Observation (INO) | payer BC, OTHER ==
[2024-10-16] MEDS: HYDROmorphone 0.5 MG/0.5 ML SYRINGE IVP STA (13:37)
[2024-10-16] MEDS: KETOROLAC 15 MG/ML 1 ML VIAL IVP STA (13:37)
[2024-10-16 13:41] LABS: Basophils # (A) 0.04 10*3/uL (0.00-0.10); Basophils % (A) 0.4 %; Eosinophils # (A) 0.23 10*3/uL (0.04-0.35); Eosinophils % (A) 2.1 %; HCT 38.7 % (39.6-50.0); HGB 13.6 g/dL (13.0-17.0); Lymphocytes # (A) 2.15 10*3/uL (0.90-5.00); Lymphocytes % (A) 19.4 %; MCH 32.0 pg (27.0-32.0); MCHC 35.1 g/dL (32.0-37.0); MCV 91.1 fL (80.0-97.0); Monocytes # (A) 0.82 10*3/uL (0.20-1.00); Monocytes % (A) 7.4 %; Neutrophils # (A) 7.76 10*3/uL (1.80-7.70); Neutrophils % (A) 70.0 %; Platelet Count 261 10*3/uL (140-440); RBC 4.25 10*6/uL (4.40-5.60); RDW 12.9 % (11.5-14.5); WBC 11.08 10*3/uL (4.50-10.00)
--- NOTE | 2024-10-16 13:50 | XR ---
EXAMINATION TYPE: XR chest 2V DATE OF EXAM: 10/16/2024 1:47 PM COMPARISON: 04/14/2023 CLINICAL INDICATION: Male, 54 years old with history of Chest Pain, , TECHNIQUE: PA and lateral views FINDINGS: Heart borderline enlarged. Mild interstitial prominence. No aaron consolidation or pleural effusion. IMPRESSION: Borderline heart size. Interstitial prominence could reflect mild pulmonary vascular congestion, bron chitis, or asthma. [facility], Workstation: [id number], 10/16/2024 1:48 PM
[2024-10-16 13:57] LABS: ALT 30 U/L (4-49); AST 24 U/L (17-59); African American GFR (CKD) >90 (>60 ml/min/1.73 sqM); Albumin 4.0 g/dL (3.5-5.0); Alkaline Phosphatase 96 U/L (38-126); Anion Gap 11 mmol/L; Blood Urea Nitrogen 13 mg/dL (9-20); Calcium 9.6 mg/dL (8.4-10.2); Carbon Dioxide 21 mmol/L (22-30); Chloride 108 mmol/L (98-107); Glucose 90 mg/dL (74-99); Magnesium 1.6 mg/dL (1.6-2.3); Non-African American GFR(CKD) >90 (>60 ml/min/1.73 sqM); Potassium 4.0 mmol/L (3.5-5.1); Sodium 140 mmol/L (137-145); Total Protein 6.3 g/dL (6.3-8.2)
[2024-10-16 13:59] LABS: INR 0.9 (<1.2); Partial Thromboplastin Time 24.2 sec (22.0-30.0); Prothrombin Time 10.6 sec (10.0-12.5)
--- NOTE | 2024-10-16 15:20 | ED ---
General Adult HPI - General Chief complaint: Chest Pain Stated complaint: Chest pain Time Seen by Provider: 10/16/24 15:00 Source: patient, EMS, RN notes reviewed, old records reviewed Mode of arrival: EMS - History of Present Illness Initial comments: This is a 54-year-old male who presents to the emergency department complaining of left-sided chest pain. Patient states was started at work. Patient states he almost passed out a couple times his vision started to go but he came around and did not actually pass out. Patient states the pain is on the left side and makes him short of breath. Patient denies any nausea but states he is diaphoretic. Patient has a history of atrial fibrillation and is on a blood thinner. Patient denies any abdominal pain patient is nausea vomiting. Patient denies any recent fever chills or cough. Patient is a smoker. - Related Data Home Medications Medication Instructions Recorded Confirmed Atorvastatin Calcium [Lipitor] 80 mg PO DAILY 12/15/21 05/09/23 Famotidine [Pepcid] 20 mg PO DAILY 12/15/21 05/09/23 Metoprolol Succinate (ER) [Toprol 50 mg PO DAILY 12/15/21 05/09/23 XL] Montelukast Sodium [Singulair] 10 mg PO DAILY 12/15/21 05/09/23 Pantoprazole Sodium [Protonix] 40 mg PO BID 12/15/21 05/09/23 Sucralfate [Carafate] 1 gm PO ACHS 12/15/21 05/09/23 ALPRAZolam [Xanax] 0.25 mg PO BID 01/21/22 05/09/23 Flecainide [Tambocor] 100 mg PO Q12HR 11/03/22 05/09/23 HYDROcodone/APAP 10-325MG [Beverly 1 tab PO BID 04/14/23 05/09/23 10-325] Ergocalciferol (Vitamin D2) 1,250 mcg PO QMONTHLY 05/09/23 05/09/23 [Drisdol (50,000 Iu)] Previous Rx's Medication Instructions Recorded Loratadine [Claritin] 10 mg PO DAILY #10 tab 07/06/17 Apixaban [Eliquis] 5 mg PO BID #60 tab 01/25/22 lisinopriL [Zestril] 5 mg PO DAILY #30 tab 01/25/22 Allergies Allergy/AdvReac Type Severity Reaction Status Date / Time No Known Allergies Allergy Verified 10/16/24 12:51 Review of Systems ROS Statement: Those systems with pertinent positive or pertinent negative responses have been documented in the HPI. ROS Other: All systems not noted in ROS Statement are negative. Past Medical History Past Medical History: Atrial Fibrillation, Asthma, GERD/Reflux, GI Bleed, Hyperlipidemia, Hypertension, Osteoarthritis (OA), Skin Disorder Additional Past Medical History / Comment(s): Hx bronchitis, hx lower GI bleed, hx DIVERTICULITIS, Psoriasis. esophagus infection History of Any Multi-Drug Resistant Organisms: MRSA Date of last positivie culture/infection: 10/20/07 MDRO Source:: L leg Past Surgical History: Heart Catheterization, Hernia Repair, Orthopedic Surgery Additional Past Surgical History / Comment(s): Back pain injections and lumbar spine nerve ablation, colonoscopy, Hieu Fundoplasty, left inguinal hernia repair, left knee debridement of MRSA infection around 2007. recent cardioversion, cardiac cath. August 2022 Past Anesthesia/Blood Transfusion Reactions: No Reported Reaction Additional Past Anesthesia/Blood Transfusion Reaction / Comment(s): Has never received blood. Past Psychological History: Anxiety, Bipolar, Depression Smoking Status: Current every day smoker Past Alcohol Use History: Occasional Past Drug Use History: Marijuana - Past Family History Mother Family Medical History: Coronary Artery Disease (CAD), Diabetes Mellitus Additional Family Medical History / Comment(s): Mother at age 63 yrs. General Exam - General Exam Comments Initial Comments: GENERAL: Patient is well-developed and well-nourished. Patient is nontoxic and well- hydrated and is in mild distress. ENT: Neck is soft and supple. No significant lymphadenopathy is noted. Oropharynx is clear. Moist mucous membranes. Neck has full range of motion without eliciting any pain. EYES: The sclera were anicteric and conjunctiva were pink and moist. Extraocular movements were intact and pupils were equal round and reactive to light. Eyelids were unremarkable. PULMONARY: Unlabored respirations. Good breath sounds bilaterally. No audible rales rhonchi or wheezing was noted. CARDIOVASCULAR: There is a regular rate and rhythm without any murmurs gallops or rubs. ABDOMEN: Soft and nontender with normal bowel sounds. SKIN: Skin is clear with no lesions or rashes and otherwise unremarkable. NEUROLOGIC: Patient is alert and oriented x3. Cranial nerves II through XII are grossly intact. Motor and sensory are also intact. Normal speech, volume and content. Symmetrical smile. MUSCULOSKELETAL: Normal extremities with adequate strength and full range of motion. No lower extremity swelling or edema. No calf tenderness. LYMPHATICS: No significant lymphadenopathy is noted PSYCHIATRIC: Normal psychiatric evaluation. Course Vital Signs 10/16/24 12:45 Temperature 97.9 F Pulse Rate 112 H Respiratory 24 Rate Blood Pressure 112/85 O2 Sat by Pulse 98 Oximetry Medical Decision Making - Medical Decision Making EKG is interpreted by myself and EKG shows sinus tachycardia at 111 bpm. Abid 139 QRS is 85 QT interval is 320 QTc is 386. EKG shows no ST segment elevation Was pt. sent in by a medical professional or institution (KELBY Lewis, IMMIGRATION INSPECTOR, urgent care, hospital, or assisted...) When possible be specific @ -No Did you speak to anyone other than the patient for history (EMS, parent, family, police, friend...)? What history was obtained from this source @ -No Did you review nursing and triage notes (agree or disagree)? Why? @ -I reviewed and agree with nursing and triage notes Were old charts reviewed (outside hosp., previous admission, EMS record, old EKG, old radiological studies, urgent care reports/EKG's, assisted records)? Report findings @ -No old charts were reviewed Differential Diagnosis? @ -Differential Chest Pain: Stable Angina, Unstable Angina, STEMI, NSTEMI Aortic Dissection, Pneumothorax, Musculoskeletal, Esophageal Spasm GERD, Cholecystitis, Pancreatitis, Zoster, this is not meant to be an all-inclusive list. EKG interpreted by me (3pts min.). @ -As above X-rays interpreted by me (1pt min.). @ -Chest x-ray shows no acute abnormality CT interpreted by me (1pt min.). @ -None done U/S interpreted by me (1pt. min.). @ -None done What testing was considered but not performed or refused? (CT, X-rays, U/S, labs)? Why? @ -None What meds were considered but not given or refused? Why? @ -None Did you discuss the management of the patient with other professionals (professionals i.e. KELBY Lewis, IMMIGRATION INSPECTOR, lab, RT, psych nurse, social work therapist, log inspector, teacher, budget officer, wrapper caser)? Give summary @ -I spoke with Dr. Gomes he agreed to admit the patient and the patient admitted recommending Was smoking cessation discussed for >3mins.? @ -No Was critical care preformed (if so, how long)? @ -No Were there social determinants of health that impacted care today? How? (Homelessness, low income, unemployed, alcoholism, drug addiction, transportation, low edu. Level, literacy, decrease access to med. care, penitentiary, rehab)? @ -No Was there de-escalation of care discussed even if they declined (Discuss DNR or withdrawal of care, Hospice)? DNR status @ -No What co-morbidities impacted this encounter? (DM, HTN, Smoking, COPD, CAD, Cancer, CVA, ARF, Chemo, Hep., AIDS, mental health diagnosis, sleep apnea, morbid obesity)? @ -None Was patient admitted / discharged? Hospital course, mention meds given and route, prescriptions, significant lab abnormalities, going to OR and other pertinent info. @ -Patient's chest pain was much improved after he gets Dilaudid and Toradol. Patient will be admitted to Dr. Gomes and cardiology be consulted Undiagnosed new problem with uncertain prognosis? @ -No Drug Therapy requiring intensive monitoring for toxicity (Heparin, Nitro, Insulin, Cardizem)? @ -No Were any procedures done? @ -No Diagnosis/symptom? @ -Chest pain Acute, or Chronic, or Acute on Chronic? @ -Acute Uncomplicated (without systemic symptoms) or Complicated (systemic symptoms)? @ -Default Side effects of treatment? @ -No Exacerbation, Progression, or Severe Exacerbation? @ -No Poses a threat to life or bodily function? How? (Chest pain, USA, NH, pneumonia, PE, COPD, DKA, ARF, appy, cholecystitis, CVA, Diverticulitis, Homicidal, Suicidal, threat to staff... and all critical care pts) @ -Yes this can lead to an NH and endorgan dysfunction - Lab Data Result diagrams: 10/16/24 13:03 10/16/24 13:03 Lab Results 10/16/24 10/16/24 10/16/24 Range/Units 13:03 13:03 13:03 WBC 11.08 H (4.50-10.00) 10*3/uL RBC 4.25 L (4.40-5.60) 10*6/uL Hgb 13.6 (13.0-17.0) g/dL Hct 38.7 L (39.6-50.0) % MCV 91.1 (80.0-97.0) fL MCH 32.0 (27.0-32.0) pg MCHC 35.1 (32.0-37.0) g/dL Plt Count 261 (140-440) 10*3/uL MPV 10.8 (9.5-12.2) fL Immature Gran % (Auto) 0.7 % Neutrophils % 70.0 % Lymphocytes % 19.4 % Monocytes % 7.4 % Eosinophils % 2.1 % Basophils % 0.4 % Immature Gran # 0.08 H (0.00-0.04) 10*3/uL Neutrophils # 7.76 H (1.80-7.70) 10*3/uL Lymphocytes # 2.15 (0.90-5.00) 10*3/uL Monocytes # 0.82 (0.20-1.00) 10*3/uL Eosinophils # 0.23 (0.04-0.35) 10*3/uL Basophils # 0.04 (0.00-0.10) 10*3/uL PT 10.6 (10.0-12.5) sec INR 0.9 (<1.2) APTT 24.2 (22.0-30.0) sec D-Dimer <0.17 (<0.60) mg/L FEU Sodium 140 (137-145) mmol/L Potassium 4.0 (3.5-5.1) mmol/L Chloride 108 H (98-107) mmol/L Carbon Dioxide 21 L (22-30) mmol/L Anion Gap 11 mmol/L BUN 13 (9-20) mg/dL Creatinine 0.70 (0.66-1.25) mg/dL Est GFR (CKD-EPI)AfAm >90 (>60 ml/min/1.73 sqM) Est GFR (CKD-EPI)NonAf >90 (>60 ml/min/1.73 sqM) Glucose 90 (74-99) mg/dL Calcium 9.6 (8.4-10.2) mg/dL Magnesium 1.6 (1.6-2.3) mg/dL Total Bilirubin 0.6 (0.2-1.3) mg/dL AST 24 (17-59) U/L ALT 30 (4-49) U/L Alkaline Phosphatase 96 (38-126) U/L Troponin I (0.000-0.034) ng/mL Total Protein 6.3 (6.3-8.2) g/dL Albumin 4.0 (3.5-5.0) g/dL 10/16/24 Range/Units 13:03 WBC (4.50-10.00) 10*3/uL RBC (4.40-5.60) 10*6/uL Hgb (13.0-17.0) g/dL Hct (39.6-50.0) % MCV (80.0-97.0) fL MCH (27.0-32.0) pg MCHC (32.0-37.0) g/dL Plt Count (140-440) 10*3/uL MPV (9.5-12.2) fL Immature Gran % (Auto) % Neutrophils % % Lymphocytes % % Monocytes % % Eosinophils % % Basophils % % Immature Gran # (0.00-0.04) 10*3/uL Neutrophils # (1.80-7.70) 10*3/uL Lymphocytes # (0.90-5.00) 10*3/uL Monocytes # (0.20-1.00) 10*3/uL Eosinophils # (0.04-0.35) 10*3/uL Basophils # (0.00-0.10) 10*3/uL PT (10.0-12.5) sec INR (<1.2) APTT (22.0-30.0) sec D-Dimer (<0.60) mg/L FEU Sodium (137-145) mmol/L Potassium (3.5-5.1) mmol/L Chloride (98-107) mmol/L Carbon Dioxide (22-30) mmol/L Anion Gap mmol/L BUN (9-20) mg/dL Creatinine (0.66-1.25) mg/dL Est GFR (CKD-EPI)AfAm (>60 ml/min/1.73 sqM) Est GFR (CKD-EPI)NonAf (>60 ml/min/1.73 sqM) Glucose (74-99) mg/dL Calcium (8.4-10.2) mg/dL Magnesium (1.6-2.3) mg/dL Total Bilirubin (0.2-1.3) mg/dL AST (17-59) U/L ALT (4-49) U/L Alkaline Phosphatase (38-126) U/L Troponin I <0.012 (0.000-0.034) ng/mL Total Protein (6.3-8.2) g/dL Albumin (3.5-5.0) g/dL Disposition Clinical Impression: Chest pain Disposition: ADMITTED IP TO THIS HOSP Referrals: Elmo Gomes MD [Primary Care Provider] - 1-2 days Time of Disposition: 15:24
[2024-10-16] MEDS: ASPIRIN 81 MG PO STA (15:35)
[2024-10-16] MEDS: NITROGLYCERIN OINT 1 INCH/GM PACKET TOPICAL SCH (17:27)
[2024-10-16] MEDS: NITROGLYCERIN SL TABS 0.4 MG TAB SUBLINGUAL PRN (17:50)
[2024-10-16] MEDS: HYDROmorphone 1 MG/ML 1 ML SYRINGE IVP PRN (17:58)
[2024-10-17 08:13] LABS: Cholesterol 156.00 mg/dL (0.00-200.00); HDL Cholesterol 34.70 mg/dL (40.00-60.00); LDL Cholesterol,Calculated 104.6 mg/dL (0.0-131.0); Triglycerides 83.60 mg/dL (0.00-149.00); VLDL Calculation 16.72 mg/dL (5.00-40.00)
[2024-10-17] MEDS: ASPIRIN 325 MG TAB PO SCH (10:02)
[2024-10-17] MEDS: FLECAINIDE 50 MG TAB PO SCH (10:56)
[2024-10-17] MEDS: APIXABAN 5 MG TAB PO SCH (10:57)
[2024-10-17] MEDS: METOPROLOL SUCCINATE (ER) 50 MG TAB.ER.24H PO SCH (10:57)
--- NOTE | 2024-10-17 14:18 | P.CRDCN ---
History of Present Illness Consult date: 10/17/24 Consult reason: chest pain History of present illness: This is a 54-year-old male patient of Dr. Hammonds with past medical history of persistent atrial fibrillation, hypertension, dyslipidemia, mitral regurgitation, overweight, history of smoking. We have been asked to evaluate the patient for chest pain. Patient complains of pounding headache that is unbearable. He states he has had a little bit of left-sided chest pain while at work and at 100+ degree environment. He states while he was working he lost half of his vision started to pass out and he called his coworkers to help him. He said he then had chest pain on the left side of his chest that felt like a horse kicked him. He also felt like he was having palpitations. He has been on Eliquis. He denies any bleeding in his urine or stool. He states he has been taking his medications as directed. He states he is eating and drinking okay. Blood pressure 122/74, heart rate 72, pulse ox 98% on room air. -EKG: Sinus rhythm with nonspecific T wave changes. -Chest x-ray: Borderline heart size, interstitial prominence could reflect mild pulmonary vascular congestion, bronchitis or asthma. -Laboratory studies: WBC 11, hemoglobin 13.6, creatinine 0.7, troponin negative x 3, potassium 4.0. Triglycerides 83, cholesterol 156, LDL 104. -Home cardiac medications: Eliquis 5 mg twice daily, atorvastatin 80 mg daily, flecainide 100 mg twice daily, lisinopril 5 mg daily, metoprolol succinate 50 mg daily. -Cardiac catheterization performed 09/26/2022 revealed normal coronary artery arteries. -Exercise stress test performed 04/17/2023 revealed good exercise tolerance, normal EKG response to exercise. -Echocardiogram performed 04/17/2023 revealed normal LV function, no significant valvular abnormalities, mild pulmonary hypertension. -Cardioversion 07/29/2022, 01/24/2022. Review Of Systems: At the time of my exam: CONSTITUTIONAL: Denies fever or chills. HEENT: Denies blurred vision, vision changes, or eye pain. Denies hemoptysis CARDIOVASCULAR: Denies chest pain. Denies orthopnea. Denies PND. Denies palpitations RESPIRATORY: Denies shortness of breath. GASTROINTESTINAL: Denies abdominal pain. Denies nausea or vomiting. HEMATOLOGIC: Denies bleeding disorders. GENITOURINARY: Denies any blood in urine. SKIN: Denies puritis. Denies rash. Physical examination: Gen: This is a 54-year-old male appears to be very uncomfortable secondary to headache. km VS: reviewed HEENT: Head is atraumatic, normocephalic. Pupils equal, round. Sclerae is anicteric. NECK: Supple. No JVD. LUNGS: Clear to auscultation. No wheezes or rhonchi. No intercostal retractions. HEART: Regular rate and rhythm. Systolic murmur. ABDOMEN: Soft No tenderness. EXTREMITIES: No pedal edema. No calf tenderness. NEUROLOGICAL: Patient is awake, alert and oriented x3. Assessment: Headache Atypical chest pain, acute coronary syndrome ruled out Near syncope Palpitations History of persistent atrial fibrillation Hypertension Dyslipidemia Mitral regurgitation BMI 37 History of smoking Plan: Resume patient's home cardiac medications Obtain TSH, A1c, BNP Obtain 2-D echocardiogram and Doppler study to assess cardiac structure and function Further recommendations to follow based upon clinical course Thank you kindly for this consultation. Nurse practitioner note has been reviewed, I agree with documented findings and plan of care. Patient was seen and examined. Past Medical History Past Medical History: Atrial Fibrillation, Asthma, GERD/Reflux, GI Bleed, Hyperlipidemia, Hypertension, Osteoarthritis (OA), Skin Disorder Additional Past Medical History / Comment(s): Hx bronchitis, hx lower GI bleed, hx DIVERTICULITIS, Psoriasis. esophagus infection History of Any Multi-Drug Resistant Organisms: MRSA Date of last positivie culture/infection: 10/20/07 MDRO Source:: L leg Past Surgical History: Heart Catheterization, Hernia Repair, Orthopedic Surgery Additional Past Surgical History / Comment(s): Back pain injections and lumbar spine nerve ablation, colonoscopy, Hieu Fundoplasty, left inguinal hernia repair, left knee debridement of MRSA infection around 2007. recent cardioversion, cardiac cath. August 2022 Past Anesthesia/Blood Transfusion Reactions: No Reported Reaction Additional Past Anesthesia/Blood Transfusion Reaction / Comment(s): Has never received blood. Past Psychological History: Anxiety, Bipolar, Depression Additional Psychological History / Comment(s): States doing very well with all this at this time. Smoking Status: Current every day smoker Past Alcohol Use History: Occasional Additional Past Alcohol Use History / Comment(s): Started smoking in 1995, current some day smoker about 1/2 pack per week. Past Drug Use History: Marijuana - Past Family History Mother Family Medical History: Coronary Artery Disease (CAD), Diabetes Mellitus Additional Family Medical History / Comment(s): Mother at age 63 yrs. Medications and Allergies Home Medications Medication Instructions Recorded Confirmed Type Atorvastatin Calcium [Lipitor] 80 mg PO DAILY 12/15/21 10/16/24 History Famotidine [Pepcid] 20 mg PO DAILY 12/15/21 10/16/24 History Metoprolol Succinate (ER) [Toprol 50 mg PO DAILY 12/15/21 10/16/24 History XL] Montelukast Sodium [Singulair] 10 mg PO DAILY 12/15/21 10/16/24 History Pantoprazole Sodium [Protonix] 40 mg PO BID 12/15/21 10/16/24 History Sucralfate [Carafate] 1 gm PO ACHS 12/15/21 10/16/24 History ALPRAZolam [Xanax] 0.25 mg PO BID 01/21/22 10/16/24 History Apixaban [Eliquis] 5 mg PO BID #60 tab 01/25/22 10/16/24 Rx lisinopriL [Zestril] 5 mg PO DAILY #30 tab 01/25/22 10/16/24 Rx Albuterol Sulfate [Ventolin HFA] 2 puff INHALATION RT-QID PRN 10/16/24 10/16/24 History Cetirizine HCl [Zyrtec] 10 mg PO DAILY 10/16/24 10/16/24 History Flecainide Acetate [Tambocor] 100 mg PO BID 10/16/24 10/16/24 History metFORMIN HCL [Glucophage] 500 mg PO DAILY 10/16/24 10/16/24 History oxyCODONE-APAP 5-325MG [Percocet 1 tab PO BID PRN 10/16/24 10/16/24 History 5-325 mg] Allergies Allergy/AdvReac Type Severity Reaction Status Date / Time No Known Allergies Allergy Verified 10/16/24 17:10 Physical Exam Vitals: Vital Signs Temp Pulse Pulse Resp BP BP Pulse Ox 10/17/24 07:00 97.4 F L 16 143/71 98 10/17/24 00:41 97.5 F L 75 18 125/84 99 10/16/24 19:10 98.0 F 81 18 120/74 98 10/16/24 17:51 13 99 10/16/24 17:34 97.7 F 71 18 129/83 98 10/16/24 15:17 89 18 127/81 98 10/16/24 12:45 97.9 F 112 H 24 112/85 98 Intake and Output 10/16/24 10/17/24 10/17/24 22:59 06:59 14:59 Other: # Voids 2 Weight 104.326 kg Results 10/16/24 13:03 10/16/24 13:03 Cardiac Enzymes 10/16/24 10/16/24 10/16/24 Range/Units 13:03 13:03 15:53 AST 24 (17-59) U/L Troponin I <0.012 <0.012 (0.000-0.034) ng/mL 10/16/24 Range/Units 18:42 AST (17-59) U/L Troponin I <0.012 (0.000-0.034) ng/mL Coagulation 10/16/24 Range/Units 13:03 PT 10.6 (10.0-12.5) sec APTT 24.2 (22.0-30.0) sec Lipids 10/16/24 Range/Units 13:03 Triglycerides 83.60 (0.00-149.00) mg/dL Cholesterol 156.00 (0.00-200.00) mg/dL HDL Cholesterol 34.70 L (40.00-60.00) mg/dL Cholesterol/HDL Ratio 4.50 Ratio CBC 10/16/24 Range/Units 13:03 WBC 11.08 H (4.50-10.00) 10*3/uL RBC 4.25 L (4.40-5.60) 10*6/uL Hgb 13.6 (13.0-17.0) g/dL Hct 38.7 L (39.6-50.0) % Plt Count 261 (140-440) 10*3/uL Comprehensive Metabolic Panel 10/16/24 Range/Units 13:03 Sodium 140 (137-145) mmol/L Potassium 4.0 (3.5-5.1) mmol/L Chloride 108 H (98-107) mmol/L Carbon Dioxide 21 L (22-30) mmol/L BUN 13 (9-20) mg/dL Creatinine 0.70 (0.66-1.25) mg/dL Glucose 90 (74-99) mg/dL Calcium 9.6 (8.4-10.2) mg/dL AST 24 (17-59) U/L ALT 30 (4-49) U/L Alkaline Phosphatase 96 (38-126) U/L Total Protein 6.3 (6.3-8.2) g/dL Albumin 4.0 (3.5-5.0) g/dL Current Medications Generic Name Dose Route Start Last Admin Trade Name Freq PRN Reason Stop Dose Admin Alprazolam 1 mg 10/17/24 00:28 10/17/24 10:03 Alprazolam 1 Mg Tab PO 1 mg Q8HR PRN Administration Anxiety Aspirin 325 mg 10/17/24 09:00 10/17/24 10:02 Aspirin 325 Mg Tab PO 325 mg DAILY MARCOS Administration Hydromorphone HCl 1 mg 10/16/24 17:08 10/17/24 08:20 Hydromorphone 1 Mg/Ml 1 Ml Syringe IVP 1 mg Q4HR PRN Administration Moderate to Severe Pain (4-10) Nitroglycerin 0.4 mg 10/16/24 15:24 10/16/24 17:50 Nitroglycerin Sl Tabs 0.4 Mg Tab SUBLINGUAL 0.4 mg Q5M PRN Administration Chest Pain Nitroglycerin 1 inch 10/16/24 18:00 10/17/24 05:37 Nitroglycerin Oint 1 Inch/Gm Packet TOPICAL Not Given Q6HR MARCOS Intake and Output 10/16/24 10/17/24 10/17/24 22:59 06:59 14:59 Other: # Voids 2 Weight 104.326 kg 10/16/24 13:03 10/16/24 13:03
[2024-10-17 17:02] LABS: NT-Pro-B-Type Natriuretic Pept 62 pg/mL
--- NOTE | 2024-10-17 21:14 | HP ---
HISTORY AND PHYSICAL ADMITTING SUMMARY CHIEF COMPLAINT: Chest pain. HISTORY OF PRESENT ILLNESS: This is another admission for this 54-year-old white male. He has had longstanding history of intermittent problems with chest pain. He came to the emergency room complaining of chest pain. Cardiac studies in the emergency room were normal, but he was admitted for monitoring and Cardiology evaluation. REVIEW OF SYSTEMS: He has had no other issues such as neurologic problems, radiation of pain, etc. Past medical history, family history and personal and social histories are otherwise unremarkable or noncontributory. PHYSICAL EXAMINATION: VITAL SIGNS: Normal. CHEST: Clear. CARDIAC: Normal. ABDOMEN: Soft, nontender. EXTREMITIES: Normal. IMPRESSION: Chest pain. PLAN: 1. Bed rest. 2. IV fluids. 3. Serial EKGs and enzymes. 4. Cardiology consult. MMODL / EVERETTN: [id number] /
--- NOTE | 2024-10-17 21:44 | PN ---
PROGRESS NOTE CHIEF COMPLAINT: Chest pain. HISTORY OF PRESENT ILLNESS: This gentleman is still having considerable chest pain. It is more in the left side. He has had no fever, chills, cough, diaphoresis, etc. He has been seen by Cardiology. PHYSICAL EXAMINATION: CHEST: Clear. CARDIAC: Normal. ABDOMEN: Soft, nontender. IMPRESSION: 1. Chest pain. 2. Chronic obstructive pulmonary disease. PLAN: Await for further guidelines from Cardiology pending for these other studies. MMODL / IJN: [id number] /
[2024-10-18 02:03] VITALS: TEMP 97.6
[2024-10-18] MEDS: ATORVASTATIN 80 MG TAB PO SCH (08:17)
[2024-10-18 09:07] VITALS: BP 118/80; PULSE 68; RESP 16
--- NOTE | 2024-10-18 09:46 | CA ---
Transthoracic Echo Report Name: Derik Moran Age: 54 Gender: M : 1970 Exam Date: 10/17/2024 14:41 Exam Location: [facility] Ht (in): 66 Wt (lb): 230 Ordering Physician: Kylah Araya Attending/Referring Phys: [id number], [place] [employer] Abdirashid Bess RDCS Procedure CPT: Indications: LVF, chest pain Cardiac Hx: Technical Quality: Fair Contrast 1: Total Dose (mL): Contrast 2: Total Dose (mL): MEASUREMENTS (Male / Female) Normal Values 2D ECHO LV Diastolic Diameter PLAX 4.2 cm 4.2 - 5.9 / 3.9 - 5.3 cm LV Systolic Diameter PLAX 3.4 cm IVS Diastolic Thickness 1.4 cm 0.6 - 1.0 / 0.6 - 0.9 cm LVPW Diastolic Thickness 1.5 cm 0.6 - 1.0 / 0.6 - 0.9 cm LV Relative Wall Thickness 0.7 RV Internal Dim ED PLAX 2.7 cm LVOT Diameter 2.0 cm LA Systolic Diameter LX 3.8 cm 3.0 - 4.0 / 2.7 - 3.8 cm LV Diastolic Volume MOD BP 113.7 cm??? 67 - 155 / 56 - 104 cm??? LV Systolic Volume MOD BP 54.0 cm??? - 58 / 19 - 49 cm??? LV Ejection Fraction MOD BP 52.5 % >= 55 % LV Cardiac Index MOD BP 1857.4 cm???/min???m??? LV Diastolic Volume MOD 4C 110.3 cm??? LV Systolic Volume MOD 4C 57.7 cm??? LV Ejection Fraction MOD 4C 47.7 % LV Cardiac Index MOD 4C 1635.8 cm???/min???m??? LV Diastolic Length 4C 8.2 cm LV Systolic Length 4C 7.1 cm LV Diastolic Volume MOD 2C 114.3 cm??? LV Systolic Volume MOD 2C 48.5 cm??? LV Ejection Fraction MOD 2C 57.5 % LV Cardiac Index MOD 2C 2045.0 cm???/min???m??? LV Diastolic Length 2C 8.0 cm LV Systolic Length 2C 6.5 cm LA Volume 84.1 cm??? 18 - 58 / 22 - 52 cm??? LA Volume Index 37.4 cm???/m??? 16 - 28 cm???/m??? M-MODE Aortic Root Diameter MM 3.7 cm LA Systolic Diameter MM 3.4 cm LA Ao Ratio MM 0.9 AV Cusp Separation MM 2.0 cm DOPPLER AV Peak Velocity 143.0 cm/s AV Peak Gradient 8.2 mmHg AV Mean Velocity 102.7 cm/s AV Mean Gradient 4.9 mmHg AV Velocity Time Integral 29.4 cm LVOT Peak Velocity 106.0 cm/s LVOT Peak Gradient 4.5 mmHg LVOT Velocity Time Integral 17.3 cm LVOT Stroke Volume 52.5 cm??? LVOT Stroke Volume Index 24.7 ml/m??? LVOT Cardiac Index 1633.9 cm???/min???m??? AV Area Cont Eq vti 1.8 cm??? AV Area Cont Eq pk 2.2 cm??? MV Area PHT 2.7 cm??? Mitral E Point Velocity 56.1 cm/s Mitral A Point Velocity 70.5 cm/s Mitral E to A Ratio 0.8 MV Deceleration Time 281.7 ms TR Peak Velocity 103.8 cm/s TR Peak Gradient 4.3 mmHg FINDINGS Left Ventricle Left ventricular ejection fraction is estimated at 55-60 %. Left ventricular cavity size normal. Moderately increased septal wall thickness. Right Ventricle Normal right ventricular size and function. Right Atrium Normal right atrial size. No right atrial thrombus or mass seen. Left Atrium Moderately increased left atrial volume. No left atrial thrombus or mass present. Mitral Valve No mitral stenosis. Trace mitral regurgitation. Aortic Valve Trileaflet aortic valve. No aortic stenosis. No aortic regurgitation. Tricuspid Valve No tricuspid stenosis. Trace tricuspid regurgitation. Pulmonic Valve Pulmonic valve not well visualized. Pericardium Normal pericardium. No pericardial or pleural effusion. Aorta Normal size aortic root and proximal ascending aorta. CONCLUSIONS LVEF 55 to 60% Moderate concentric LVH No obvious regional wall motion abnormality Normal RV size and systolic function No significant valvular dysfunction Previewed by: Dr Kermit Hunt (Electronically Signed) Final Date: 18 October 2024 09:46
--- NOTE | 2024-10-18 11:19 | P.PN ---
Subjective Progress Note Date: 10/18/24 Consult reason: chest pain History of present illness: This is a 54-year-old male patient of Dr. Hammonds with past medical history of persistent atrial fibrillation, hypertension, dyslipidemia, mitral regurgitation, overweight, history of smoking. We have been asked to evaluate the patient for chest pain. Patient complains of pounding headache that is u nbearable. He states he has had a little bit of left-sided chest pain while at work and at 100+ degree environment. He states while he was working he lost half of his vision started to pass out and he called his coworkers to help him. He said he then had chest pain on the left side of his chest that felt like a horse kicked him. He also felt like he was having palpitations. He has been on Eliquis. He denies any bleeding in his urine or stool. He states he has been taking his medications as directed. He states he is eating and drinking okay. Blood pressure 122/74, heart rate 72, pulse ox 98% on room air. -EKG: Sinus rhythm with nonspecific T wave changes. -Chest x-ray: Borderline heart size, interstitial prominence could reflect mild pulmonary vascular congestion, bronchitis or asthma. -Laboratory studies: WBC 11, hemoglobin 13.6, creatinine 0.7, troponin negative x 3, potassium 4.0. Triglycerides 83, cholesterol 156, LDL 104. -Home cardiac medications: Eliquis 5 mg twice daily, atorvastatin 80 mg daily, flecainide 100 mg twice daily, lisinopril 5 mg daily, metoprolol succinate 50 mg daily. -Cardiac catheterization performed 09/26/2022 revealed normal coronary artery arteries. -Exercise stress test performed 04/17/2023 revealed good exercise tolerance, normal EKG response to exercise. -Echocardiogram performed 04/17/2023 revealed normal LV function, no significant valvular abnormalities, mild pulmonary hypertension. -Cardioversion 07/29/2022, 01/24/2022. 10/18/2024 Patient seen and examined. He continues to complain of severe headache. Fioricet did not seem to help. The only thing that does help his headache is Dilaudid. He states he is having some chest pain that makes him cough and his shortness of breath. He is tender to the chest wall. He describes the pain as sharp. Echocardiogram reveals EF of 55 to 60%, moderate concentric LVH. No significant valvular disorder. A1c 5.7, TSH 3.32, proBNP 62. Physical examination: Gen: This is a 54-year-old male appears to be very uncomfortable secondary to headache. km VS: reviewed HEENT: Head is atraumatic, normocephalic. Pupils equal, round. Sclerae is anicteric. NECK: Supple. No JVD. LUNGS: Clear to auscultation. No wheezes or rhonchi. No intercostal retractions. HEART: Regular rate and rhythm. Systolic murmur. ABDOMEN: Soft No tenderness. EXTREMITIES: No pedal edema. No calf tenderness. NEUROLOGICAL: Patient is awake, alert and oriented x3. Assessment: Headache Atypical chest pain, acute coronary syndrome ruled out Near syncope Palpitations History of persistent atrial fibrillation Hypertension Dyslipidemia Mitral regurgitation BMI 37 History of smoking Plan: Resume patient's home cardiac medications Patient is cleared for discharge from a cardiology perspective. Plan will be for him to follow-up in the office with Dr. Hammonds and undergo outpatient stress testing. Cardiology will sign off this case and follow on an as-needed basis. Please reconsult for any new concerns. Nurse practitioner note has been reviewed, I agree with documented findings and plan of care. Patient was seen and examined. Objective - Vital Signs Vital signs: Vital Signs Temp 97.6 F 10/18/24 07:00 Pulse 68 10/18/24 07:00 Resp 16 10/18/24 07:00 BP 118/80 10/18/24 07:00 Pulse Ox 98 10/18/24 07:00 FiO2 Intake & Output 10/17/24 10/18/24 10/18/24 18:59 06:59 18:59 Intake Total 1080 210 Balance 1080 210 Intake: Oral 1080 210 Other: Voiding Method Toilet # Voids 3 2 - Labs CBC & Chem 7: 10/16/24 13:03 10/16/24 13:03
--- NOTE | 2024-10-18 17:02 | DS ---
DISCHARGE SUMMARY CHIEF COMPLAINT: Chest pain. HISTORY OF PRESENT ILLNESS AND PHYSICAL EXAMINATION: Details of this man's history and physical can be found in the initial workup. COURSE IN THE HOSPITAL: After admission, he was placed on bedrest, started on intravenous fluids. He had serial EKGs and enzymes, which were normal. He was seen by Cardiology. Further studies were conducted and Cardiology felt that he could be cleared. He will go home on his usual activity, diet, and medication, and he will follow up in the office. FINAL DIAGNOSES: 1. Chest pain, noncardiac. 2. Atherosclerotic cardiovascular disease. 3. Chronic obstructive pulmonary disease. OPERATIONS: None. CONSULTATION: Cardiology. MMODL / IJN: [id number] /
== END 2024-10-18 13:45 | disposition home or self-care (01) ==
LOC: EC 12:40 → 1SOBS 15:26
PROVIDERS: ADMIT Family Medicine; ATTEND Family Medicine
DX: R07.89 Other chest pain (principal); I48.19 Other persistent atrial fibrillation; I10 Essential (primary) hypertension; E78.5 Hyperlipidemia, unspecified; I34.0 Nonrheumatic mitral (valve) insufficiency; R51.9 Headache, unspecified; R00.0 Tachycardia, unspecified; R55 Syncope and collapse; H53.9 Unspecified visual disturbance; E66.3 Overweight; Z68.37 Body mass index [BMI] 37.0-37.9, adult; F17.210 Nicotine dependence, cigarettes, uncomplicated; J44.89 Other specified chronic obstructive pulmonary disease; Z79.84 Long term (current) use of oral hypoglycemic drugs; Z79.899 Other long term (current) drug therapy; Z79.01 Long term (current) use of anticoagulants; X30.XXXA Exposure to excessive natural heat, initial encounter
CPT/HCPCS: 96376 ×3; 96374; 96375; 99285; 36415; 93005; 93306; 85379; 83880; 80061; 80053; 85652; 84443; 83735; 84484; 85025; 85610; 85730; 86140; 83036; 71046; G0378 ×3; J1171 ×4; J1885